=== PATIENT | female | born 1945 | race Caucasian/White ===

== ENCOUNTER → 2016-10-26 | Outpatient (CLI) | payer MEDICARE, OTHER ==
--- NOTE | 2016-10-26 11:10 | RADIOLOGY REPORT (SQ) ---
EXAM DESCRIPTION: MRI LUMBAR SPINE WITHOUT COMPLETED DATE/TIME: 10/26/2016 9:28 am REASON FOR STUDY: LOW BACK PAIN M54.5 LOW BACK PAIN COMPARISON: None. TECHNIQUE: Sagittal and Axial imaging includes T1, T2, STIR and gradient echo sequences. Coronal T2/ HASTE imaging. LIMITATIONS: None. FINDINGS: VISUALIZED UPPER ABDOMEN: Limited evaluation. On the coronal images there is a high inten sity lesion in the liver, not fully visualized. SEGMENTATION: No transitional anatomy. The lowest well-developed disc space is labeled L5-S1. ALIGNMENT: 5 mm anterolisthesis of L3 on L4. VERTEBRAE: Intact. BONE MARROW: No marrow replacement. Reactive endplate signal at L3-L4. DISC SIGNAL: Decreased height and signal. POSTERIOR ELEMENTS: Generally intact. No pars defect evident. HARDWARE: None in the spine. CORD AND CONUS: Normal in size and signal intensity. Conus at the appropriate level. SOFT TISSUES: No aortic aneurysm seen. No bulky retroperitoneal adenopathy or mass. No paraspinal mas s or fluid. L1-L2: No significant spinal stenosis or exit foraminal stenosis. L2-L3: Mild diffuse posterior annular bulge. Moderate facet arthropathy. No significant spinal sten osis. Mild exit foraminal stenosis. L3-L4: Mild diffuse posterior annular bulge. Marked facet arthropathy. Severe spinal stenosis. Yovanny ateral exit foraminal stenosis, worse on the right. L4-L5: Mild diffuse posterior bulge. Mild facet arthropathy. Mild spinal stenosis and exit foramina l stenosis. L5-S1: Mild diffuse posterior bulge. Mild facet arthropathy. Mild spinal stenosis. No significant exit foraminal stenosis. LOWER THORACIC: Incompletely imaged. No stenosis seen. SACRUM: Visualized upper sacrum intact. OTHER: No other significant findings. IMPRESSION: 1. MULTILEVEL DEGENERATIVE CHANGES. THE PROMINENT FINDING IS ANTEROLISTHESIS AT L3-L4 WITH FACET ART HROPATHY RESULTING IN SEVERE SPINAL STENOSIS. OTHER DEGENERATIVE CHANGES DETAILED ABOVE. 2. LESION IN THE LIVER, NOT FULLY EVALUATED. THIS COULD BE A CYST OR HEMANGIOMA. IF THE PATIENT HAS NOT HAD ANY PRIOR ABDOMINAL IMAGING, THEN WOULD CONSIDER CT OF THE LIVER WITHOUT AND WITH CONTRAST. TECHNICAL DOCUMENTATION: JOB ID: [id number]- All Rights Reserved
== END ==
LOC: RAD 08:26
PROVIDERS: ATTEND Physician Assistant
DX: M54.5 Low back pain (principal); M47.896 Other spondylosis, lumbar region
CPT/HCPCS: 72148

== ENCOUNTER → 2016-10-28 | Outpatient (CLI) | payer MEDICARE, OTHER ==
[2016-10-28 09:16] LABS: HEMATOCRIT 41.4 % (36.0-47.0); HEMOGLOBIN 13.8 g/dL (12.0-15.5); MEAN CORPUSCULAR HEMOGLOBIN 30.1 pg (27.0-33.4); MEAN CORPUSCULAR HGB CONC 33.4 g/dL (32.0-36.0); MEAN CORPUSCULAR VOLUME 90 fl (80-97); RED BLOOD COUNT 4.58 10^6/uL (3.72-5.28); RED CELL DISTRIBUTION WIDTH 13.3 % (11.5-14.0); WHITE BLOOD COUNT 6.3 10^3/uL (4.0-10.5)
[2016-10-28 09:32] LABS: ALANINE AMINOTRANSFERASE 31 U/L (9-52); ALBUMIN 3.8 g/dL (3.5-5.0); ALKALINE PHOSPHATASE 82 U/L (38-126); ANION GAP 14 (5-19); ASPARTATE AMINO TRANSFERASE 16 U/L (14-36); BILIRUBIN,DIRECT 0.3 mg/dL (0.0-0.4); BILIRUBIN,TOTAL 0.9 mg/dL (0.2-1.3); BLOOD UREA NITROGEN 15 mg/dL (7-20); CALCIUM 9.6 mg/dL (8.4-10.2); CARBON DIOXIDE 26 mmol/L (22-30); CHLORIDE 103 mmol/L (98-107); CREATININE RESULT 0.67 mg/dL (0.52-1.25); GLUCOSE 105 mg/dL (75-110); TOTAL PROTEIN 5.8 g/dL (6.3-8.2)
[2016-10-28 09:43] LABS: BASOPHILS % (MANUAL) 0 % (0-2); EOSINOPHILS % (MANUAL) 2 % (0-6); LYMPHOCYTES % (MANUAL) 24 % (13-45); TOTAL CELLS COUNTED 100
[2016-10-28 09:44] LABS: RBC MORPHOLOGY COMMENT NORMO-CYTIC/CHROMIC; TOXIC GRANULATION SLIGHT
== END ==
LOC: OD 08:21
PROVIDERS: ATTEND Physician Assistant
DX: M54.5 Low back pain (principal); M54.16 Radiculopathy, lumbar region; R16.0 Hepatomegaly, not elsewhere classified
CPT/HCPCS: 36415; 80053; 85025

== ENCOUNTER → 2016-11-02 | Outpatient (CLI) | payer MEDICARE, OTHER ==
--- NOTE | 2016-11-02 09:54 | RADIOLOGY REPORT (SQ) ---
EXAM DESCRIPTION: CT ABDOMEN COMBO COMPLETED DATE/TIME: 11/02/2016 9:33 am REASON FOR STUDY: LIVER MASS (K76.89) K76.89 OTHER SPECIFIED DISEASES OF LIVER COMPARISON: None. TECHNIQUE: CT scan of the abdomen performed with and without intravenous contrast, and without oral contrast. Contrasted imaging performed using helical scanning technique with dynamic intravenous cont rast injection. Images reviewed with lung, soft tissue, and bone windows. Reconstructed coronal and s agittal MPR images reviewed. Delayed images for evaluation of the urinary system also acquired and ev aluated. All images stored on PACS. All CT scanners at this facility use dose modulation, iterative reconstruction, and/or weight based d osing when appropriate to reduce radiation dose to as low as reasonably achievable (ALARA). [facility]: Dose Right [facility]: CareDose [facility]: Dose Right [facility]: Teradose 4D [facility]: [employer] CONTRAST TYPE AND DOSE: 50mL Isovue 370- low osmolar. RENAL FUNCTION: Creatinine 0.7 RADIATION DOSE: 105.55mGy. LIMITATIONS: None. FINDINGS: NONCONTRASTED IMAGING: No significant renal or bladder calcifications. No other significan t organ calcifications. POSTCONTRASTED IMAGING: LOWER CHEST: No significant findings. No nodules or infiltrates. Spotty coronary artery calcificatio n. LIVER: 1.7 cm hemangioma in the posterior right lobe liver. This correlates with the hyperdense nodu le seen on coronal T2 images through the lumbar spine on 10/26/2016. SPLEEN: Normal size. No focal lesions. PANCREAS: No masses. No significant calcifications. No adjacent inflammation or peripancreatic fluid collections. Pancreatic duct not dilated. GALLBLADDER: Surgically absent ADRENAL GLANDS: No significant masses or asymmetry. RIGHT KIDNEY AND URETER: No solid masses. No significant calcifications. No hydronephrosis or hyd roureter. LEFT KIDNEY AND URETER: No solid masses. No significant calcifications. No hydronephrosis or hydr oureter. AORTA AND VESSELS: No aneurysm. No dissection. Renal arteries, SMA, celiac without stenosis. 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 RETROPERITONEUM: No retroperitoneal adenopathy, hemorrhage or masses. BOWEL AND PERITONEAL CAVITY: No oral contrast. No bowel obstruction. APPENDIX: Normal. ABDOMINAL WALL: No masses. No hernias. BONES: Central canal stenosis at L3-4. OTHER: No other significant finding. IMPRESSION: Benign hemangioma in the liver. Post cholecystectomy. Central canal stenosis at L3-4. TECHNICAL DOCUMENTATION: JOB ID: [id number] Quality ID # [id number]: Final reports with documentation of one or more dose reduction techniques (e.g., Au tomated exposure control, adjustment of the mA and/or kV according to patient size, use of iterative reconstruction technique) 2010 [employer]- All Rights Reserved
== END ==
LOC: RAD 08:49
PROVIDERS: ATTEND Physician Assistant
DX: K76.89 Other specified diseases of liver (principal)
CPT/HCPCS: 74170

== ENCOUNTER → 2016-11-29 | Outpatient (CLI) | payer MEDICARE, OTHER ==
--- NOTE | 2016-11-29 09:59 | RADIOLOGY REPORT (SQ) ---
EXAM DESCRIPTION: LUMBAR SPINE W/FLEX/EXT COMPLETED DATE/TIME: 11/29/2016 9:14 am REASON FOR STUDY: LUMBAR SPINAL STENOSIS M48.06 SPINAL STENOSIS, LUMBAR REGION COMPARISON: Lumbar spine MRI 10/26/2016 NUMBER OF VIEWS: Seven views. TECHNIQUE: AP, lateral, obliques, upright flexion, upright extension, and sacral radiographic images acquired. LIMITATIONS: None. FINDINGS: MINERALIZATION: Normal. SEGMENTATION: Normal. No transitional anatomy. ALIGNMENT: 25% anterolisthesis of L3 over L4, without spondylolysis FLEXION/EXTENSION: No instability. VERTEBRAE: Maintained height. No fracture or worrisome bone lesion. DISCS: Diffuse disc space loss of height with vertebral body endplate sclerosis and mild anterior ost eophyte formation POSTERIOR ELEMENTS: Pedicles and facets are intact, with diffuse facet arthropathy. No pars defect o r posterior arch defects. HARDWARE: None in the spine. PARASPINAL SOFT TISSUES: Normal. PELVIS: Asymmetric left greater than right SI joint sclerosis OTHER: No other significant finding. IMPRESSION: 25% anterolisthesis of L3 over L4, stable between flexion/ extension Multilevel disc space loss of height with vertebral body endplate sclerosis and facet arthropathy NO INSTABILITY ON FLEXION/EXTENSION. TECHNICAL DOCUMENTATION: JOB ID: [id number] [employer]- All Rights Reserved
== END ==
LOC: OD 07:57
PROVIDERS: ATTEND Pain Medicine Pain Medicine
DX: M48.06 Spinal stenosis, lumbar region (principal)
CPT/HCPCS: 72114

== ENCOUNTER 2019-03-21 11:33 | Inpatient (IN) | payer MEDICARE, OTHER ==
--- NOTE | 2019-03-21 12:28 | ER Document Report ---
ED Medical Screen (RME) - General Chief Complaint: Abdominal Pain Stated Complaint: ABDOMINAL PAIN Time Seen by Provider: 03/21/19 12:25 Primary Care Provider: CLOVIS MENDOZA PA [Primary Care Provider] - Follow up as needed Notes: 73-year-old female presented to ED for complaint of abdominal pain since Monday. States he took x-rays gave mag citrate and she threw it all. She states she has not had a bowel movement since then. She states she usually goes twice a day and is having problems. She states she has no appetite at this time is not able to eat. She states she is trying to drink liquids. I have greeted and performed a rapid initial assessment of this patient. A comprehensive ED assessment and evaluation of the patient, analysis of test results and completion of medical decision making process will be conducted by an additional ED providers. TRAVEL OUTSIDE OF THE [place] IN LAST 30 DAYS: No - Related Data Allergies/Adverse Reactions: Penicillins Allergy (Intermediate, Verified 12/03/15 14:34) rash Past Medical History - Social History Chew tobacco use (# tins/day): No Frequency of alcohol use: None Drug Abuse: None - Past Medical History Cardiac Medical History: Reports: Hx Hypertension - medicated Denies: Hx Heart Attack Pulmonary Medical History: Denies: Hx Asthma Neurological Medical History: Denies: Hx Cerebrovascular Accident, Hx Seizures GI Medical History: Denies: Hx Hepatitis, Hx Hiatal Hernia, Hx Ulcer Infectious Medical History: Denies: Hx Hepatitis Past Surgical History: Denies: Hx Hysterectomy, Hx Mastectomy, Hx Open Heart Surgery, Hx Pacemaker Physical Exam - Vital signs Vitals: Temp Pulse Resp BP Pulse Ox 99.1 F 95 18 138/61 H 100 03/21/19 11:51 03/21/19 11:51 03/21/19 11:51 03/21/19 11:51 03/21/19 11:51 Course - Vital Signs Vital signs: Temp Pulse Resp BP Pulse Ox 99.1 F 95 18 138/61 H 100 03/21/19 11:51 03/21/19 11:51 03/21/19 11:51 03/21/19 11:51 03/21/19 11:51 Doctor's Discharge - Discharge Referrals: CLOVIS MENDOZA PA [Primary Care Provider] - Follow up as needed
[2019-03-21] MEDS ORDERED: MINERAL OIL 30 ML UDCUP PR ONE (12:50)
--- NOTE | 2019-03-21 13:04 | RADIOLOGY REPORT (SQ) ---
EXAM DESCRIPTION: ACUTE ABDOMEN SERIES COMPLETED DATE/TIME: 03/21/2019 12:50 pm REASON FOR STUDY: No BM since Monday COMPARISON: None. NUMBER OF VIEWS: Three views. TECHNIQUE: Frontal chest, supine abdomen and upright/decubitus abdomen radiographic images acquired. LIMITATIONS: None. FINDINGS: CHEST: Lungs clear of infiltrates. FREE AIR: None. No abnormal gas collections. BOWEL GAS PATTERN: Nonobstructive pattern. Moderate retained stool. CALCIFICATIONS: No suspicious calcifications. HARDWARE: Hardware in the spine. SOFT TISSUES: No gross mass or suggestion of organomegaly. BONES: No acute fracture. No worrisome bone lesions. OTHER: No other significant finding. IMPRESSION: Mild constipation. TECHNICAL DOCUMENTATION: JOB ID: [id number] [employer]- All Rights Reserved Reading location - IP/workstation name: [email or web address]
[2019-03-21 13:18] LABS: HEMATOCRIT 39.6 % (36.0-47.0); HEMOGLOBIN 13.1 g/dL (12.0-15.5); MEAN CORPUSCULAR HEMOGLOBIN 29.2 pg (27.0-33.4); MEAN CORPUSCULAR HGB CONC 33.1 g/dL (32.0-36.0); MEAN CORPUSCULAR VOLUME 88 fl (80-97); PLATELET COUNT 419 10^3/uL (150-450); RED BLOOD COUNT 4.48 10^6/uL (3.72-5.28); RED CELL DISTRIBUTION WIDTH 14.1 % (11.5-14.0); WHITE BLOOD COUNT 23.5 10^3/uL (4.0-10.5)
[2019-03-21 13:20] LABS: APPEARANCE,URINE SLIGHTLY-CLOUDY; BILIRUBIN,URINE NEGATIVE (NEGATIVE); GLUCOSE, URINE NEGATIVE (NEGATIVE); KETONES,URINE 20 mg/dL (NEGATIVE); LEUKOCYTE ESTERASE,URINE NEGATIVE (NEGATIVE); NITRITE,URINE NEGATIVE (NEGATIVE); PROTEIN,URINE 100 mg/dL (NEGATIVE); URINE SPECIFIC GRAVITY 1.029
[2019-03-21 13:21] LABS: COLOR,URINE YELLOW
[2019-03-21 13:33] LABS: ALBUMIN 3.7 g/dL (3.5-5.0); ALKALINE PHOSPHATASE 133 U/L (38-126); ANION GAP 14 (5-19); ASPARTATE AMINO TRANSFERASE 26 U/L (14-36); BILIRUBIN,DIRECT 0.7 mg/dL (0.0-0.4); BILIRUBIN,TOTAL 1.9 mg/dL (0.2-1.3); BLOOD UREA NITROGEN 16 mg/dL (7-20); CALCIUM 9.3 mg/dL (8.4-10.2); CARBON DIOXIDE 27 mmol/L (22-30); CHLORIDE 94 mmol/L (98-107); GLUCOSE 113 mg/dL (75-110); POTASSIUM 3.7 mmol/L (3.6-5.0); TOTAL PROTEIN 6.9 g/dL (6.3-8.2)
[2019-03-21 13:42] LABS: ABSOLUTE LYMPHOCYTES# (MANUAL) 0.9 10^3/uL (0.5-4.7); ABSOLUTE MONOCYTES # (MANUAL) 1.9 10^3/uL (0.1-1.4); BASOPHILS % (MANUAL) 0 % (0-2); EOSINOPHILS % (MANUAL) 0 % (0-6); LYMPHOCYTES % (MANUAL) 4 % (13-45); MONOCYTES % (MANUAL) 8 % (3-13); SEGMENTED NEUTROPHILS % (MAN) 88 % (42-78); TOTAL CELLS COUNTED 100
[2019-03-21 13:43] LABS: ANISOCYTOSIS SLIGHT; OVALOCYTES SLIGHT; PLATELET COMMENT ADEQUATE; TEAR DROP CELLS SLIGHT
[2019-03-21] MEDS ORDERED: MORPHINE SULFATE 10 MG/ML INJ IV ONE ×2 (15:01→16:32)
[2019-03-21] MEDS ORDERED: ONDANSETRON HCL INJ/PF 4 MG/2 ML SDV IV ONE (15:03)
--- NOTE | 2019-03-21 15:37 | ER Document Report ---
ED General - General Chief Complaint: Abdominal Pain Stated Complaint: ABDOMINAL PAIN Time Seen by Provider: 03/21/19 12:25 Primary Care Provider: CLOVIS MENDOZA PA [NO LOCAL MD] - Follow up as needed TRAVEL OUTSIDE OF THE [place] IN LAST 30 DAYS: No - HPI Notes: Patient is referred from her primary care doctor for acute abdominal pain. She states that is been generalized for 4 to 5 days. She is also not had a bowel movement in approximately 1 week. Some nausea and vomiting when she tried to drink magnesium citrate. The abdominal pain seems to get worse that she has moving around and better with rest. It is a cramping sensation and mild to moderate. No fevers. No problems with urination. - Related Data Allergies/Adverse Reactions: Penicillins Allergy (Intermediate, Verified 12/03/15 14:34) rash Past Medical History - General Information source: Patient - Social History Smoking Status: Never Smoker Chew tobacco use (# tins/day): No Frequency of alcohol use: None Drug Abuse: None Family History: Reviewed & Not Pertinent Patient has suicidal ideation: No Patient has homicidal ideation: No - Past Medical History Cardiac Medical History: Reports: Hx Hypertension - medicated Denies: Hx Heart Attack Pulmonary Medical History: Denies: Hx Asthma Neurological Medical History: Denies: Hx Cerebrovascular Accident, Hx Seizures GI Medical History: Denies: Hx Hepatitis, Hx Hiatal Hernia, Hx Ulcer Infectious Medical History: Denies: Hx Hepatitis Past Surgical History: Denies: Hx Hysterectomy, Hx Mastectomy, Hx Open Heart Surgery, Hx Pacemaker Review of Systems - Review of Systems Constitutional: denies: Chills, Fever Cardiovascular: denies: Chest pain, Palpitations Respiratory: denies: Cough, Short of breath Gastrointestinal: Abdominal pain, Vomiting. denies: Diarrhea Genitourinary: denies: Dysuria, Frequency -: Yes All other systems reviewed and negative Physical Exam - Vital signs Vitals: Temp Pulse Resp BP Pulse Ox 99.1 F 95 18 138/61 H 100 03/21/19 11:51 03/21/19 11:51 03/21/19 11:51 03/21/19 11:51 03/21/19 11:51 Interpretation: Normal - General General appearance: Appears well, Alert - HEENT Head: Normocephalic, Atraumatic Eyes: Normal Pupils: PERRL - Respiratory Respiratory status: No respiratory distress Chest status: Nontender Breath sounds: Normal Chest palpation: Normal - Cardiovascular Rhythm: Regular Heart sounds: Normal auscultation Murmur: No - Abdominal Inspection: Normal Distension: No distension Bowel sounds: Normal Tenderness: Tender - Patient has mild diffuse tenderness to palpation. No rebound or guarding. Organomegaly: No organomegaly - Back Back: Normal, Nontender - Extremities General upper extremity: Normal inspection, Nontender, Normal color, Normal ROM, Normal temperature General lower extremity: Normal inspection, Nontender, Normal color, Normal ROM, Normal temperature, Normal weight bearing. No: Juan Pablo's sign - Neurological Neuro grossly intact: Yes Cognition: Normal Orientation: AAOx4 Yasir Coma Scale Eye Opening: Spontaneous [place] Coma Scale Verbal: Oriented Yasir Coma Scale Motor: Obeys Commands Yasir Coma Scale Total: 15 Speech: Normal Motor strength normal: LUE, RUE, LLE, RLE Sensory: Normal - Psychological Associated symptoms: Normal affect, Normal mood - Skin Skin Temperature: Warm Skin Moisture: Dry Skin Color: Normal Course - Re-evaluation Re-evalutation: 03/21/19 15:58 Patient presents with complaints of abdominal pain and constipation. X-ray showed constipation. However white count came back at 23,000. Patient was then given a CAT scan. CAT scan shows a large intra-abdominal abscess. It was recommended that the CAT scan be repeated with oral contrast to further delineate the findings. Patient is currently pending at this scan. She will be turned over to Dr. Magallon who will follow up on the scan and contact surgery. - Vital Signs Vital signs: Temp Pulse Resp BP Pulse Ox 99.1 F 95 18 138/61 H 100 03/21/19 11:51 03/21/19 11:51 03/21/19 11:51 03/21/19 11:51 03/21/19 11:51 - Laboratory Result Diagrams: 03/21/19 12:55 03/21/19 12:55 Laboratory results interpreted by me: 03/21/19 03/21/19 03/21/19 12:55 12:55 12:55 WBC 23.5 H RDW 14.1 H Seg Neuts % (Manual) 88 H Lymphocytes % (Manual) 4 L Abs Neuts (Manual) 20.7 H Abs Monocytes (Manual) 1.9 H Sodium 135.2 L Chloride 94 L Glucose 113 H Total Bilirubin 1.9 H Direct Bilirubin 0.7 H Alkaline Phosphatase 133 H Urine Protein 100 H Urine Ketones 20 H Urine Blood SMALL H Urine Urobilinogen 2.0 H - Diagnostic Test Radiology reviewed: Image reviewed, Reports reviewed Discharge - Discharge Clinical Impression: Intra-abdominal abscess Condition: Serious Disposition: ADMITTED INPATIENT Admitting Provider: Surgicalist - [facility] [place] Unit Admitted: Surgical Floor Referrals: CLOVIS MENDOZA PA [NO LOCAL MD] - Follow up as needed
--- NOTE | 2019-03-21 15:39 | RADIOLOGY REPORT (SQ) ---
EXAM DESCRIPTION: CT ABD/PELVIS WITH IV ONLY COMPLETED DATE/TIME: 03/21/2019 3:24 pm REASON FOR STUDY: pain/elevated wbc COMPARISON: 11/02/2016 TECHNIQUE: CT scan of the abdomen and pelvis performed using helical scanning technique with dynamic intravenous contrast injection. No oral contrast. Images reviewed with lung, soft tissue, and bone windows. Reconstructed coronal and sagittal MPR images reviewed. Delayed images for evaluation of the urinary system also acquired. All images stored on PACS. All CT scanners at this facility use dose modulation, iterative reconstruction, and/or weight based d osing when appropriate to reduce radiation dose to as low as reasonably achievable (ALARA). [facility]: Dose Right [facility]: CareDose [facility]: Dose Right [facility]: Teradose 4D [facility]: [employer] CONTRAST TYPE AND DOSE: contrast/concentration: Isovue 350.00 mg/ml; Total Contrast Delivered: 87.0 ml; Total Saline Delivered: 48.8 ml RENAL FUNCTION: GFR > 60. RADIATION DOSE: CT Rad equipment meets quality standard of care and radiation dose reduction techniq ues were employed. CTDIvol: NaN - NaN mGy. DLP: 0 mGy-cm.. LIMITATIONS: None. FINDINGS: LOWER CHEST: No significant findings. No nodules or infiltrates. LIVER: Normal size. No masses. Redemonstrated hemangioma of the right lobe. No dilated ducts. SPLEEN: Normal size. No focal lesions. PANCREAS: No masses. No significant calcifications. No adjacent inflammation or peripancreatic fluid collections. Pancreatic duct not dilated. GALLBLADDER: Surgically absent. ADRENAL GLANDS: No significant masses or asymmetry. RIGHT KIDNEY AND URETER: No solid masses. No significant calcifications. No hydronephrosis or hyd roureter. LEFT KIDNEY AND URETER: No solid masses. No significant calcifications. No hydronephrosis or hydr oureter. AORTA AND VESSELS: No aneurysm. No dissection. Renal arteries, SMA, celiac without stenosis. RETROPERITONEUM: No retroperitoneal adenopathy, hemorrhage or masses. BOWEL AND PERITONEAL CAVITY: Severe sigmoid diverticulosis. . No free fluid or peritoneal masses. APPENDIX: Not clearly visualized; please see below discussion. PELVIS: There is a multiloculated air and fluid collection in the right lower abdomen and pelvis jh uring approximately 7.9 x 6.9 x 5.1 cm (series 3, image 61, series 601, image 37). This is favored t o represent an abscess, of uncertain origin although appendiceal abscess is favored. There is a joslyn re adjacent sigmoid diverticulosis and fat stranding; diverticular abscess is a differential consider ation. No free fluid. Normal bladder. ABDOMINAL WALL: No masses. No hernias. BONES: No significant or acute findings. OTHER: No other significant finding. IMPRESSION: There is a multiloculated air and fluid collection in the right lower abdomen and pelvis measuring approximately 7.9 x 6.9 x 5.1 cm (series 3, image 61, series 601, image 37). This is favo red to represent an abscess, of uncertain origin although appendiceal abscess is favored. There is a severe adjacent sigmoid diverticulosis and fat stranding; diverticular abscess is a differential con sideration. Less favored considerations include right ovarian mass. It is unclear whether small bow el may be included within this multiloculated collection or communicate with this collection; conside r repeat CT examination with the administration of oral contrast to exclude small bowel loops or fist anthony. TECHNICAL DOCUMENTATION: JOB ID: [id number] Quality ID # [id number]: Final reports with documentation of one or more dose reduction techniques (e.g., Au tomated exposure control, adjustment of the mA and/or kV according to patient size, use of iterative reconstruction technique) 2010 [employer]- All Rights Reserved Reading location - IP/workstation name: [email or web address]
[2019-03-21] MEDS ORDERED: NORMAL SALINE 1000 ML 1,000 ML IV ONE (16:07)
[2019-03-21] MEDS ORDERED: LEVOFLOXACIN 750 MG/D5W RTU 750 MG/150 ML RTUPB IV SCH (16:30)
[2019-03-21] MEDS ORDERED: METRONIDAZOLE 500 MG/NS RTU 500 MG/100 ML RTUPB IV SCH (18:00)
[2019-03-21] MEDS ORDERED: ONDANSETRON 4 MG TAB.RAPDIS PO PRN (18:12)
[2019-03-21] MEDS ORDERED: ACETAMINOPHEN 650 MG SUPP.RECT PR PRN (18:12)
[2019-03-21] MEDS ORDERED: MAGNESIUM HYDROXIDE SUSP 30 ML UDCUP PO PRN (18:12)
[2019-03-21] MEDS ORDERED: ONDANSETRON HCL INJ/PF 4 MG/2 ML SDV IV PRN (18:12)
[2019-03-21] MEDS ORDERED: ACETAMINOPHEN 325 MG TABLET PO PRN (18:12)
[2019-03-21] MEDS ORDERED: DEXTROSE 40% GEL 15 GM TUBE PO PRN ×2 (18:24)
[2019-03-21] MEDS ORDERED: DEXTROSE 50%-WATER 25 GM/50 ML DISP.SYRIN IV PRN ×2 (18:24)
[2019-03-21] MEDS ORDERED: GLUCAGON,HUMAN RECOMB 1 MG INJ IM PRN (18:24)
--- NOTE | 2019-03-21 18:24 | PDOC CONSULTATION ---
Consultation Consult Date: 03/21/19 Provider Consulted: CAMILA PERKINS Consult reason:: Intra-abdominal abscess History of Present Illness Admission Date/PCP: GOMEZ HALE PA-C History of Present Illness: MAGDALENE SIMMS is a 73 year old female Presents to the emergency department via ground rescue complaining a week history of abdominal pain, crampy, bloating sensation, inability to have a bowel movement, constipation. She is seen in the emergency department she is found to have abdominal tenderness. White blood cell count [place] 23,000. Patient underwent CT scan of the abdomen and pelvis without oral contrast which showed intra-abdominal abscess to the right of midline in the pelvis, colonic, associated with pericolonic stranding and sigmoid diverticulitis. Patient still has her appendix. She underwent colonoscopy by Dr. Fernandez 6 years ago and was found to have sigmoid diverticulosis and sigmoid colon polyp. Hemodynamically stable without evidence of sepsis. Surgery was consulted. Patient was advised admission to the hospital service with surgicalist team consulting. Past Medical History Past Medical History: History of hypertension, diverticulosis. Cardiac Medical History: Reports: Hypertension - medicated Denies: Myocardial Infarction Pulmonary Medical History: Denies: Asthma Neurological Medical History: Denies: Seizures GI Medical History: Denies: Hepatitis, Hiatal Hernia Hematology: Denies: Anemia, Sickle Cell Disease Past Surgical History Past Surgical History: Laparoscopic cholecystectomy Past Surgical History: Denies: Amputation, Hysterectomy, Mastectomy, Pacemaker Social History Information Source: Patient Smoking Status: Never Smoker Electronic Cigarette use?: No Frequency of Alcohol Use: Rare Hx Recreational Drug Use: No Hx Prescription Drug Abuse: No Family History Family History: None, Reviewed & Not Pertinent Parental Family History Reviewed: No Children Family History Reviewed: No Sibling(s) Family History Reviewed.: No Medication/Allergy Home Medications: Atorvastatin Calcium [Lipitor 10 mg Tablet] 10 mg PO DAILY 04/08/13 Hydrochlorothiazide 25 mg PO QAM 04/08/13 Nitrofurantoin Macrocrystal [Nitrofurantoin] 50 mg PO DAILY 04/08/13 Rabeprazole Sodium [Aciphex] 20 mg PO DAILY 04/08/13 Metformin HCl 500 mg PO QAM 12/03/15 Allergies/Adverse Reactions: Penicillins Allergy (Intermediate, Verified 12/03/15 14:34) rash Review of Systems Constitutional: PRESENT: as per HPI Eyes: ABSENT: visual disturbances Ears: ABSENT: hearing changes Cardiovascular: ABSENT: chest pain, dyspnea on exertion, edema, orthropnea, palpitations Respiratory: ABSENT: cough, hemoptysis Gastrointestinal: PRESENT: as per HPI, abdominal pain, bloating, constipation Genitourinary: ABSENT: dysuria, hematuria Musculoskeletal: ABSENT: joint swelling Integumentary: ABSENT: rash, wounds Neurological: ABSENT: abnormal gait, abnormal speech, confusion, dizziness, focal weakness, syncope Psychiatric: ABSENT: anxiety, depression, homidical ideation, suicidal ideation Physical Exam Vital Signs: Temp Pulse Resp BP Pulse Ox 99.1 F 95 18 138/61 H 100 03/21/19 11:51 03/21/19 11:51 03/21/19 11:51 03/21/19 11:51 03/21/19 11:51 Intake & Output 03/20/19 03/21/19 03/22/19 06:59 06:59 06:59 Intake Total 1000 Balance 1000 Weight 76.2 kg General appearance: PRESENT: no acute distress Head exam: PRESENT: normocephalic Eye exam: PRESENT: EOMI Mouth exam: PRESENT: dry mucosa Neck exam: PRESENT: full ROM Respiratory exam: PRESENT: clear to auscultation telly Cardiovascular exam: PRESENT: RRR Pulses: PRESENT: normal carotid pulses, normal radial pulses, normal femoral pulses, normal dorsalis pedis pul, +1 pedal pulses bilateral GI/Abdominal exam: PRESENT: other - Slight abdominal distention, guarding, with less tenderness to the right of midline in the pelvic region. Hypoactive bowel sounds. Scars consistent with previous surgery. Rectal exam: PRESENT: deferred Extremities exam: PRESENT: full ROM Musculoskeletal exam: PRESENT: full ROM Neurological exam: PRESENT: awake, oriented to person, oriented to time, oriented to situation Psychiatric exam: PRESENT: appropriate affect Skin exam: PRESENT: dry Results Laboratory Results: 03/21/19 12:55 03/21/19 12:55 03/21/19 03/21/19 03/21/19 12:55 12:55 12:55 WBC 23.5 H RBC 4.48 Hgb 13.1 Hct 39.6 MCV 88 MCH 29.2 MCHC 33.1 RDW 14.1 H Plt Count 419 Seg Neutrophils % Not Reportable Sodium 135.2 L Potassium 3.7 Chloride 94 L Carbon Dioxide 27 Anion Gap 14 BUN 16 Creatinine 0.72 Est GFR ( Amer) > 60 Glucose 113 H Calcium 9.3 Total Bilirubin 1.9 H AST 26 Alkaline Phosphatase 133 H Total Protein 6.9 Albumin 3.7 Lipase 34.2 Urine Color YELLOW Urine Appearance SLIGHTLY-CLOUDY Urine pH 5.0 Ur Specific [place] 1.029 Urine Protein 100 H Urine Glucose (UA) NEGATIVE Urine Ketones 20 H Urine Blood SMALL H Urine Nitrite NEGATIVE Ur Leukocyte Esterase NEGATIVE Urine WBC (Auto) 1 Urine RBC (Auto) 7 Impressions: Acute Abdomen Series 03/21/19 12:29 IMPRESSION: Mild constipation. Abdomen/Pelvis CT 03/21/19 14:32 IMPRESSION: There is a multiloculated air and fluid collection in the right lower abdomen and pelvis measuring approximately 7.9 x 6.9 x 5.1 cm (series 3, image 61, series 601, image 37). This is favored to represent an abscess, of uncertain origin although appendiceal abscess is favored. There is a severe adjacent sigmoid diverticulosis and fat stranding; diverticular abscess is a differential consideration. Less favored considerations include right ovarian mass. It is unclear whether small bowel may be included within this multiloculated collection or communicate with this collection; consider repeat CT examination with the administration of oral contrast to exclude small bowel loops or fistula. Assessment & Plan - Diagnosis (1) Intra-abdominal abscess Is this a current diagnosis for this admission?: Yes Plan: Impression: Subacute presentation of low abdominal-pelvic abscess, pericolonic, associated with deangelo-rectosigmoid stranding and diverticulitis, consistent with complicated diverticulitis, Hinchey classification1-2; no evidence of peritonitis widespread intra-abdominal sepsis. Other sources of intrapelvic sepsis such as ovarian, cecal, appendiceal also possible but less likely Recommendations: 1. Reviewed the pathoanatomy as described above with patient. I have recommended admission, IV fluids, intravenous antibiotics, n.p.o. 2. We will consult interventional radiology in a.m. to consider percutaneous versus trans-rectal pelvic drain placement. 3. I explained to the patient that if we cannot bridge her over this acute flareup with IV antibiotics and percutaneous drainage, and she urinates, then emergent surgery may be required. I explained to her that on an unprepped bowel, colonic resection with colostomy may be required. She expresses understanding and agrees to proceed. (2) Diverticulitis Is this a current diagnosis for this admission?: Yes (3) Obesity Qualifiers: Obesity type: unspecified obesity type Body mass index: BMI 32.0-32.9 Is this a current diagnosis for this admission?: Yes (4) Hypertension Qualifiers: Hypertension type: essential hypertension Qualified Code(s): I10 - Essential (primary) hypertension Is this a current diagnosis for this admission?: Yes - Time Time Spent: 50 to 70 Minutes Smoking Cessation Education: over 10 minutes Medications reviewed and adjusted accordingly: Yes Anticipated discharge: Home - Inpatient Certification Based on my medical assessment, after consideration of the patient's comorbidit ies, presenting symptoms, or acuity I expect that the services needed warrant INPATIENT care.: Yes I certify that my determination is in accordance with my understanding of [facility]'s requirements for reasonable and necessary INPATIENT services [42 CFR 412.3e].: Yes Medical Necessity: Need For IV Fluids, Need for Pain Control, Need for IV Antibiotics, Need for Surgery
--- NOTE | 2019-03-21 18:41 | PDOC H&P ---
History of Present Illness Admission Date/PCP: GOMEZ HALE PA-C 03/21/2019 History of Present Illness: MAGDALENE SIMMS is a 73 year old female Past Medical History Cardiac Medical History: Reports: Hypertension - medicated Denies: Myocardial Infarction Pulmonary Medical History: Denies: Asthma Neurological Medical History: Denies: Seizures GI Medical History: Reports: Other - Gallbladder disease Denies: Hepatitis, Hiatal Hernia Musculoskeltal Medical History: Reports: Other - Back pain with back surgery Hematology: Denies: Anemia, Sickle Cell Disease Past Surgical History Past Surgical History: Reports: Cholecystectomy - Lumbar disc surgery, Other Denies: Amputation, Hysterectomy, Mastectomy, Pacemaker Social History Smoking Status: Never Smoker Electronic Cigarette use?: No Frequency of Alcohol Use: Rare Hx Recreational Drug Use: No Hx Prescription Drug Abuse: No - Advance Directive Resuscitation Status: Full Code Family History Family History: None, Reviewed & Not Pertinent Parental Family History Reviewed: No Children Family History Reviewed: No Sibling(s) Family History Reviewed.: No Medication/Allergy Home Medications: Atorvastatin Calcium [Lipitor 10 mg Tablet] 10 mg PO DAILY 04/08/13 Hydrochlorothiazide 25 mg PO QAM 04/08/13 Nitrofurantoin Macrocrystal [Nitrofurantoin] 50 mg PO DAILY 04/08/13 Rabeprazole Sodium [Aciphex] 20 mg PO DAILY 04/08/13 Metformin HCl 500 mg PO QAM 12/03/15 Allergies/Adverse Reactions: Penicillins Allergy (Intermediate, Verified 12/03/15 14:34) rash Review of Systems Constitutional: ABSENT: chills, fever(s), headache(s), weight gain, weight loss Cardiovascular: ABSENT: chest pain, dyspnea on exertion, edema, orthropnea, palpitations Respiratory: ABSENT: cough, hemoptysis Gastrointestinal: PRESENT: constipation, vomiting Neurological: ABSENT: abnormal gait, abnormal speech, confusion, dizziness, focal weakness, syncope Psychiatric: ABSENT: anxiety, depression, homidical ideation, suicidal ideation Physical Exam Vital Signs: Temp Pulse Resp BP Pulse Ox 99.1 F 95 18 138/61 H 100 03/21/19 11:51 03/21/19 11:51 03/21/19 11:51 03/21/19 11:51 03/21/19 11:51 Intake & Output 03/20/19 03/21/19 03/22/19 06:59 06:59 06:59 Intake Total 1000 Balance 1000 Weight 76.2 kg General appearance: PRESENT: no acute distress Respiratory exam: PRESENT: clear to auscultation telly. ABSENT: rales, rhonchi, wheezes Cardiovascular exam: PRESENT: RRR. ABSENT: diastolic murmur, rubs, systolic murmur GI/Abdominal exam: PRESENT: diminished bowel sounds, hypoactive bowel sounds, soft, tenderness Neurological exam: PRESENT: alert, awake, oriented to person, oriented to place, oriented to time, oriented to situation, CN II-XII grossly intact. ABSENT: motor sensory deficit Psychiatric exam: PRESENT: appropriate affect, normal mood. ABSENT: homicidal ideation, suicidal ideation Results Laboratory Results: 03/21/19 12:55 03/21/19 12:55 03/21/19 03/21/19 03/21/19 12:55 12:55 12:55 WBC 23.5 H RBC 4.48 Hgb 13.1 Hct 39.6 MCV 88 MCH 29.2 MCHC 33.1 RDW 14.1 H Plt Count 419 Seg Neutrophils % Not Reportable Sodium 135.2 L Potassium 3.7 Chloride 94 L Carbon Dioxide 27 Anion Gap 14 BUN 16 Creatinine 0.72 Est GFR ( Amer) > 60 Glucose 113 H Calcium 9.3 Total Bilirubin 1.9 H AST 26 Alkaline Phosphatase 133 H Total Protein 6.9 Albumin 3.7 Lipase 34.2 Urine Color YELLOW Urine Appearance SLIGHTLY-CLOUDY Urine pH 5.0 Ur Specific [place] 1.029 Urine Protein 100 H Urine Glucose (UA) NEGATIVE Urine Ketones 20 H Urine Blood SMALL H Urine Nitrite NEGATIVE Ur Leukocyte Esterase NEGATIVE Urine WBC (Auto) 1 Urine RBC (Auto) 7 Impressions: Acute Abdomen Series 03/21/19 12:29 IMPRESSION: Mild constipation. Abdomen/Pelvis CT 03/21/19 14:32 IMPRESSION: There is a multiloculated air and fluid collection in the right lower abdomen and pelvis measuring approximately 7.9 x 6.9 x 5.1 cm (series 3, image 61, series 601, image 37). This is favored to represent an abscess, of uncertain origin although appendiceal abscess is favored. There is a severe adjacent sigmoid diverticulosis and fat stranding; diverticular abscess is a differential consideration. Less favored considerations include right ovarian mass. It is unclear whether small bowel may be included within this multiloculated collection or communicate with this collection; consider repeat CT examination with the administration of oral contrast to exclude small bowel loops or fistula. Assessment and Plan - Diagnosis (2) Diverticulitis Is this a current diagnosis for this admission?: Yes (3) Hypertension Qualifiers: Hypertension type: essential hypertension Qualified Code(s): I10 - Essential (primary) hypertension Is this a current diagnosis for this admission?: Yes (4) Intra-abdominal abscess Is this a current diagnosis for this admission?: Yes (5) Obesity Qualifiers: Obesity type: unspecified obesity type Body mass index: BMI 32.0-32.9 Is this a current diagnosis for this admission?: Yes - Plan Summary Summary: 03/21/2019 Patient has been seen in consultation and examined by general surgery, Dr. Roberto, who feels like the patient should be kept n.p.o., IV fluids, IV antibiotics, and reevaluated in the morning.. He feels like it would be best to possibly drain the abscess with CT guided drainage, and reevaluate the patient afterwards. Patient was informed however that plans could change based on her clinical condition. She has a significant drug allergy to the penicillins will be placed on IV Flagyl and IV ciprofloxacin. Currently patient is up and ambulatory to the bathroom and in no acute distress. Patient had all of her questions answered satisfied with the plan. - Time Time Spent with patient: 35 or more minutes
[2019-03-21] MEDS ORDERED: PROMETHAZINE HCL INJ 25 MG/1 ML VIAL IV PRN (18:43)
[2019-03-21] MEDS ORDERED: HYDRALAZINE HCL INJ/PF 20 MG/1 ML SDV IV PRN (18:46)
[2019-03-21 19:09] LABS: INTERNATIONAL RATION (INR) 1.19; PROTHROMBIN TIME 15.2 SEC (11.4-15.4)
--- NOTE | 2019-03-21 19:50 | RADIOLOGY REPORT (SQ) ---
EXAM DESCRIPTION: CT ABD/PELVIS ORAL ONLY COMPLETED DATE/TIME: 03/21/2019 7:22 pm REASON FOR STUDY: abscess on previous scan needs repeat with oral COMPARISON: 03/21/2019 TECHNIQUE: CT scan of the abdomen and pelvis performed without intravenous contrast. Oral contrast was administered. Images reviewed with lung, soft tissue, and bone windows. Reconstructed coronal an d sagittal MPR images reviewed. All images stored on PACS. All CT scanners at this facility use dose modulation, iterative reconstruction, and/or weight based d osing when appropriate to reduce radiation dose to as low as reasonably achievable (ALARA). [facility]: Dose Right [facility]: CareDose [facility]: Dose Right [facility]: Teradose 4D [facility]: [employer] RADIATION DOSE: CT Rad equipment meets quality standard of care and radiation dose reduction techniq ues were employed. CTDIvol: 11.8 mGy. DLP: 603 mGy-cm.mGy. LIMITATIONS: None. FINDINGS: LOWER CHEST: No significant findings. No nodules or infiltrates. NON-CONTRASTED LIVER, SPLEEN, ADRENALS: Evaluation limited by lack of IV contrast. No identified sign ificant masses. PANCREAS: No masses. No peripancreatic inflammatory changes. GALLBLADDER: No identified stones by CT criteria. No inflammatory changes to suggest cholecystitis. RIGHT KIDNEY AND URETER: No suspicious masses. Assessment limited by lack of IV contrast. No signif icant calcifications. No hydronephrosis or hydroureter. LEFT KIDNEY AND URETER: No suspicious masses. Assessment limited by lack of IV contrast. No signifi cant calcifications. No hydronephrosis or hydroureter. AORTA AND RETROPERITONEUM: No aneurysm. No retroperitoneal masses or adenopathy. BOWEL AND PERITONEAL CAVITY: Once again inflammatory mass containing an air-fluid level is seen in th e right side of the pelvis. APPENDIX: Not identified. PELVIS, BLADDER, AND ABDOMINAL WALL:See above. No free fluid in the pelvis. Extensive diverticulosi s in the sigmoid colon. BONES: No significant findings. OTHER: No other significant finding. IMPRESSION: Right side pelvic abscess: Diverticulitis versus appendiceal abscess. COMMENT: Quality ID # [id number]: Final reports with documentation of one or more dose reduction techniques (e.g., Automated exposure control, adjustment of the mA and/or kV according to patient size, use of iterative reconstruction technique) TECHNICAL DOCUMENTATION: JOB ID: [id number] 6015[employer]- All Rights Reserved Reading location - IP/workstation name: [email or web address]
[2019-03-21] MEDS: MORPHINE SULFATE 10 MG/ML INJ IV PRN (20:03)
[2019-03-21] MEDS: NORMAL SALINE 1000 ML 1,000 ML IV PRN (20:04)
[2019-03-21] MEDS: INSULIN LISPRO 100 UNIT/ML 3 ML VIAL SUBCUT SCH (22:49)
[2019-03-21] MEDS: FAMOTIDINE INJ/PF 20 MG/2 ML SDV IV SCH (23:27)
[2019-03-22] MEDS: METRONIDAZOLE 500 MG/NS RTU 250 MG in CONTAINER,EMPTY 1 EACH IV SCH ×3 (01:32→17:12)
[2019-03-22] MEDS: MORPHINE SULFATE 10 MG/ML INJ IV PRN ×5 (01:49→21:07)
[2019-03-22 04:42] LABS: HEMATOCRIT 34.1 % (36.0-47.0); HEMOGLOBIN 11.4 g/dL (12.0-15.5); MEAN CORPUSCULAR HEMOGLOBIN 29.8 pg (27.0-33.4); MEAN CORPUSCULAR HGB CONC 33.6 g/dL (32.0-36.0); MEAN CORPUSCULAR VOLUME 89 fl (80-97); PLATELET COUNT 338 10^3/uL (150-450); RED BLOOD COUNT 3.84 10^6/uL (3.72-5.28); RED CELL DISTRIBUTION WIDTH 14.5 % (11.5-14.0); WHITE BLOOD COUNT 21.2 10^3/uL (4.0-10.5)
[2019-03-22 04:54] LABS: ANION GAP 10 (5-19); BLOOD UREA NITROGEN 11 mg/dL (7-20); CALCIUM 8.2 mg/dL (8.4-10.2); CARBON DIOXIDE 24 mmol/L (22-30); CHLORIDE 101 mmol/L (98-107); GLUCOSE 82 mg/dL (75-110); POTASSIUM 3.4 mmol/L (3.6-5.0)
[2019-03-22 05:19] LABS: ABSOLUTE LYMPHOCYTES# (MANUAL) 0.6 10^3/uL (0.5-4.7); ABSOLUTE MONOCYTES # (MANUAL) 1.1 10^3/uL (0.1-1.4); ANISOCYTOSIS SLIGHT; BAND NEUTROPHILS % (MANUAL) 7 % (3-5); BASOPHILS % (MANUAL) 0 % (0-2); EOSINOPHILS % (MANUAL) 0 % (0-6); LYMPHOCYTES % (MANUAL) 3 % (13-45); MONOCYTES % (MANUAL) 5 % (3-13); PLATELET COMMENT ADEQUATE; SEGMENTED NEUTROPHILS % (MAN) 85 % (42-78); TOTAL CELLS COUNTED 100
[2019-03-22] MEDS: CIPROFLOXACIN 400 MG/D5W RTU 400 MG/200 ML RTUPB IV SCH ×2 (05:21→18:04)
[2019-03-22] MEDS: NORMAL SALINE 1000 ML 1,000 ML IV PRN (05:23)
[2019-03-22] MEDS: INSULIN LISPRO 100 UNIT/ML 3 ML VIAL SUBCUT SCH ×4 (08:02→21:01)
[2019-03-22] MEDS: FAMOTIDINE INJ/PF 20 MG/2 ML SDV IV SCH ×2 (11:21→21:02)
--- NOTE | 2019-03-22 11:27 | PDOC PROGRESS REPORT ---
Subjective Progress Note for:: 03/15/19 Subjective:: Left lower quadrant pains not any worse than yesterday. Passing small amount of flatus. No nausea or vomiting Reason For Visit: ABDOMINAL PAIN, LEUKOCYTOSIS,HYPERTENSION,LUMBAR Physical Exam Vital Signs: Temp Pulse Resp BP Pulse Ox 98.4 F 83 16 119/68 96 03/22/19 07:39 03/22/19 07:39 03/22/19 07:39 03/22/19 07:39 03/22/19 07:39 Intake & Output 03/21/19 03/22/19 03/23/19 06:59 06:59 06:59 Intake Total 2132 Balance 2132 Weight 77.4 kg Exam: Abdomen is soft with tenderness in the left lower quadrant. Results Laboratory Results: 03/22/19 03:37 03/22/19 03:37 03/21/19 03/21/19 03/21/19 12:55 12:55 12:55 WBC 23.5 H RBC 4.48 Hgb 13.1 Hct 39.6 MCV 88 MCH 29.2 MCHC 33.1 RDW 14.1 H Plt Count 419 Seg Neutrophils % Not Reportable Sodium 135.2 L Potassium 3.7 Chloride 94 L Carbon Dioxide 27 Anion Gap 14 BUN 16 Creatinine 0.72 Est GFR ( Amer) > 60 Glucose 113 H Calcium 9.3 Magnesium Total Bilirubin 1.9 H AST 26 Alkaline Phosphatase 133 H Total Protein 6.9 Albumin 3.7 Amylase Lipase 34.2 Urine Color YELLOW Urine Appearance SLIGHTLY-CLOUDY Urine pH 5.0 Ur Specific [place] 1.029 Urine Protein 100 H Urine Glucose (UA) NEGATIVE Urine Ketones 20 H Urine Blood SMALL H Urine Nitrite NEGATIVE Ur Leukocyte Esterase NEGATIVE Urine WBC (Auto) 1 Urine RBC (Auto) 7 03/21/19 03/22/19 03/22/19 12:55 03:37 03:37 WBC 21.2 H RBC 3.84 Hgb 11.4 L Hct 34.1 L MCV 89 MCH 29.8 MCHC 33.6 RDW 14.5 H Plt Count 338 Seg Neutrophils % Not Reportable Sodium 135.3 L Potassium 3.4 L Chloride 101 Carbon Dioxide 24 Anion Gap 10 BUN 11 Creatinine 0.67 Est GFR ( Amer) > 60 Glucose 82 Calcium 8.2 L Magnesium 2.0 Total Bilirubin AST Alkaline Phosphatase Total Protein Albumin Amylase 36 Lipase Urine Color Urine Appearance Urine pH Ur Specific [place] Urine Protein Urine Glucose (UA) Urine Ketones Urine Blood Urine Nitrite Ur Leukocyte Esterase Urine WBC (Auto) Urine RBC (Auto) Impressions: Acute Abdomen Series 03/21/19 12:29 IMPRESSION: Mild constipation. Abdomen/Pelvis CT 03/21/19 15:57 IMPRESSION: Right side pelvic abscess: Diverticulitis versus appendiceal a bscess. Assessment & Plan - Diagnosis (1) Abdominal pain Qualifiers: Abdominal location: left upper quadrant Qualified Code(s): R10.12 - Left upper quadrant pain Is this a current diagnosis for this admission?: Yes (2) Diverticulitis Is this a current diagnosis for this admission?: Yes (3) Hypertension Qualifiers: Hypertension type: essential hypertension Qualified Code(s): I10 - Essential (primary) hypertension Is this a current diagnosis for this admission?: Yes (4) Intra-abdominal abscess Is this a current diagnosis for this admission?: Yes (5) Obesity Qualifiers: Obesity type: unspecified obesity type Body mass index: BMI 32.0-32.9 Is this a current diagnosis for this admission?: Yes - Time Time Spent with patient: 15-24 minutes - Inpatient Certification Medical Necessity: Need For IV Fluids, Need for IV Antibiotics - Plan Summary Plan Summary: D/W Radiologist. Abscess not well amenable to percutaneous drainage Continue IV antibiotics Keep NPO except small amount ice chips just to wet mouth Re-evaluate in am ' If pains worsen or develops N/V will do Exploratory laparotomy/colostomy Check WBC in am
[2019-03-22] MEDS ORDERED: NORMAL SALINE 1000 ML 1,000 ML IV PRN (11:30)
--- NOTE | 2019-03-22 16:27 | PDOC PROGRESS REPORT ---
Subjective Progress Note for:: 03/22/19 Subjective:: 73-year-old female who was admitted last night through the emergency room for a abdominal abscess. Is currently n.p.o. and taking IV antibiotics. She is being seen on her frequent basis by general surgery Reason For Visit: ABDOMINAL PAIN, LEUKOCYTOSIS,HYPERTENSION,LUMBAR Physical Exam Vital Signs: Temp Pulse Resp BP Pulse Ox 99.3 F 93 18 97/62 L 94 03/22/19 12:13 03/22/19 12:13 03/22/19 12:13 03/22/19 12:13 03/22/19 12:13 Intake & Output 03/21/19 03/22/19 03/23/19 06:59 06:59 06:59 Intake Total 2132 Balance 2132 Weight 77.4 kg General appearance: PRESENT: no acute distress, other - Talking in full sentences, no vomiting Respiratory exam: PRESENT: clear to auscultation telly. ABSENT: rales, rhonchi, wheezes Cardiovascular exam: PRESENT: RRR. ABSENT: diastolic murmur, rubs, systolic murmur GI/Abdominal exam: PRESENT: hypoactive bowel sounds, soft, tenderness - Right and left lower quadrant Neurological exam: PRESENT: alert, awake, oriented to person, oriented to place, oriented to time, oriented to situation, CN II-XII grossly intact. ABSENT: motor sensory deficit Psychiatric exam: PRESENT: appropriate affect, normal mood. ABSENT: homicidal ideation, suicidal ideation Results Laboratory Results: 03/22/19 03:37 03/22/19 03:37 03/21/19 03/22/19 03/22/19 12:55 03:37 03:37 WBC 21.2 H RBC 3.84 Hgb 11.4 L Hct 34.1 L MCV 89 MCH 29.8 MCHC 33.6 RDW 14.5 H Plt Count 338 Seg Neutrophils % Not Reportable Sodium 135.3 L Potassium 3.4 L Chloride 101 Carbon Dioxide 24 Anion Gap 10 BUN 11 Creatinine 0.67 Est GFR ( Amer) > 60 Glucose 82 Calcium 8.2 L Magnesium 2.0 Amylase 36 Impressions: Acute Abdomen Series 03/21/19 12:29 IMPRESSION: Mild constipation. Abdomen/Pelvis CT 03/21/19 15:57 IMPRESSION: Right side pelvic abscess: Diverticulitis versus appendiceal abscess. Assessment and Plan - Diagnosis (1) Abdominal pain Qualifiers: Abdominal location: left upper quadrant Qualified Code(s): R10.12 - Left upper quadrant pain Is this a current diagnosis for this admission?: Yes (2) Diverticulitis Is this a current diagnosis for this admission?: Yes (3) Hypertension Qualifiers: Hypertension type: essential hypertension Qualified Code(s): I10 - Essential (primary) hypertension Is this a current diagnosis for this admission?: Yes (4) Intra-abdominal abscess Is this a current diagnosis for this admission?: Yes (5) Obesity Qualifiers: Obesity type: unspecified obesity type Body mass index: BMI 32.0-32.9 Is this a current diagnosis for this admission?: Yes - Plan Summary Summary: 03/21/2019 Patient has been seen in consultation and examined by general surgery, Dr. Roberto, who feels like the patient should be kept n.p.o., IV fluids, IV antibiotics, and reevaluated in the morning.. He feels like it would be best to possibly drain the abscess with CT guided drainage, and reevaluate the patient afterwards. Patient was informed however that plans could change based on her clinical condition. She has a significant drug allergy to the penicillins will be placed on IV Flagyl and IV ciprofloxacin. Currently patient is up and ambulatory to the bathroom and in no acute distress. Patient had all of her questions answered satisfied with the plan. 03/22/2019 This morning early temperature was 98.4 around noon it is gone up to 99.3. High as it got up to yesterday was 100.1 which was 93 this morning blood pressure. O2 sat between 9496% on room air no respiratory distress Count down slightly 21.2. Amylase and lipase normal, magnesium normal, electrolytes grossly normal We will continue to monitor with IV antibiotics, serial labs, patient's clinical presentation. She is aware of the plan. Currently the patient is hemodyn amically stable - Time Time Spent with patient: 25-34 minutes
[2019-03-22] MEDS: DEXTROSE 5%-1/2 NORMAL SALINE 1,000 ML IV PRN (17:13)
[2019-03-23] MEDS: METRONIDAZOLE 500 MG/NS RTU 250 MG in CONTAINER,EMPTY 1 EACH IV SCH ×3 (01:14→17:30)
[2019-03-23] MEDS: DEXTROSE 5%-1/2 NORMAL SALINE 1,000 ML IV PRN ×3 (01:14→16:53)
[2019-03-23] MEDS: MORPHINE SULFATE 10 MG/ML INJ IV PRN ×5 (01:18→21:10)
[2019-03-23] MEDS: CIPROFLOXACIN 400 MG/D5W RTU 400 MG/200 ML RTUPB IV SCH ×2 (05:03→17:27)
[2019-03-23 05:53] LABS: HEMATOCRIT 31.5 % (36.0-47.0); HEMOGLOBIN 10.3 g/dL (12.0-15.5); MEAN CORPUSCULAR HEMOGLOBIN 29.2 pg (27.0-33.4); MEAN CORPUSCULAR HGB CONC 32.9 g/dL (32.0-36.0); MEAN CORPUSCULAR VOLUME 89 fl (80-97); PLATELET COUNT 371 10^3/uL (150-450); RED BLOOD COUNT 3.55 10^6/uL (3.72-5.28); RED CELL DISTRIBUTION WIDTH 14.2 % (11.5-14.0); WHITE BLOOD COUNT 29.6 10^3/uL (4.0-10.5)
[2019-03-23 06:23] LABS: ALBUMIN 2.5 g/dL (3.5-5.0); ALKALINE PHOSPHATASE 101 U/L (38-126); ANION GAP 9 (5-19); ASPARTATE AMINO TRANSFERASE 28 U/L (14-36); BILIRUBIN,DIRECT 0.6 mg/dL (0.0-0.4); BLOOD UREA NITROGEN 15 mg/dL (7-20); CALCIUM 8.2 mg/dL (8.4-10.2); CARBON DIOXIDE 24 mmol/L (22-30); CHLORIDE 101 mmol/L (98-107); GLUCOSE 137 mg/dL (75-110); POTASSIUM 3.6 mmol/L (3.6-5.0); TOTAL PROTEIN 5.1 g/dL (6.3-8.2)
[2019-03-23 07:16] LABS: ABSOLUTE LYMPHOCYTES# (MANUAL) 0.6 10^3/uL (0.5-4.7); ABSOLUTE MONOCYTES # (MANUAL) 1.5 10^3/uL (0.1-1.4); ANISOCYTOSIS SLIGHT; BAND NEUTROPHILS % (MANUAL) 5 % (3-5); BASOPHILS % (MANUAL) 0 % (0-2); EOSINOPHILS % (MANUAL) 0 % (0-6); LYMPHOCYTES % (MANUAL) 2 % (13-45); MONOCYTES % (MANUAL) 5 % (3-13); SEGMENTED NEUTROPHILS % (MAN) 88 % (42-78); TOTAL CELLS COUNTED 100
[2019-03-23 07:17] LABS: PLATELET COMMENT ADEQUATE
[2019-03-23] MEDS: INSULIN LISPRO 100 UNIT/ML 3 ML VIAL SUBCUT SCH ×4 (10:40→21:41)
[2019-03-23] MEDS: FAMOTIDINE INJ/PF 20 MG/2 ML SDV IV SCH ×2 (10:42→21:10)
[2019-03-23] MEDS ORDERED: FUROSEMIDE INJ/PF 40 MG/4 ML SDV IV ONE (11:30)
--- NOTE | 2019-03-23 12:04 | PDOC PROGRESS REPORT ---
Subjective Progress Note for:: 03/23/19 Subjective:: 73-year-old female who was admitted last night through the emergency room for a abdominal abscess. Is currently n.p.o. and taking IV antibiotics. She is being seen on her frequent basis by general surgery 03/22/2019 Patient's white count is come down to 21,000. She does not appear to be in significant pain 03/23/2019 White count is gone up today to 29,600 Clinically patient is still up and ambulatory, not appear to be unstable Reason For Visit: ABDOMINAL PAIN, LEUKOCYTOSIS,HYPERTENSION,LUMBAR Physical Exam Vital Signs: Temp Pulse Resp BP Pulse Ox 97.9 F 86 16 103/62 95 03/23/19 07:39 03/23/19 07:39 03/23/19 07:39 03/23/19 07:39 03/22/19 23:38 Intake & Output 03/22/19 03/23/19 03/24/19 06:59 06:59 06:59 Intake Total 2132 2400 Balance 2132 2400 Weight 77.4 kg 78 kg General appearance: PRESENT: no acute distress Respiratory exam: PRESENT: clear to auscultation telly. ABSENT: rales, rhonchi, wheezes Cardiovascular exam: PRESENT: RRR. ABSENT: diastolic murmur, rubs, systolic murmur GI/Abdominal exam: PRESENT: normal bowel sounds, tenderness - Both right and left lower quadrants mild to palpation Neurological exam: PRESENT: alert, awake, oriented to person, oriented to place, oriented to time, oriented to situation, CN II-XII grossly intact. ABSENT: motor sensory deficit Psychiatric exam: PRESENT: appropriate affect, normal mood. ABSENT: homicidal ideation, suicidal ideation Results Laboratory Results: 03/23/19 04:53 03/23/19 04:53 03/23/19 03/23/19 04:53 04:53 WBC 29.6 H RBC 3.55 L Hgb 10.3 L Hct 31.5 L MCV 89 MCH 29.2 MCHC 32.9 RDW 14.2 H Plt Count 371 Seg Neutrophils % Not Reportable Sodium 134.4 L Potassium 3.6 Chloride 101 Carbon Dioxide 24 Anion Gap 9 BUN 15 Creatinine 0.63 Est GFR ( Amer) > 60 Glucose 137 H Calcium 8.2 L Total Bilirubin 1.0 AST 28 Alkaline Phosphatase 101 Total Protein 5.1 L Albumin 2.5 L Impressions: Acute Abdomen Series 03/21/19 12:29 IMPRESSION: Mild constipation. Abdomen/Pelvis CT 03/21/19 15:57 IMPRESSION: Right side pelvic abscess: Diverticulitis versus appendiceal absce ss. Assessment and Plan - Diagnosis (1) Abdominal pain Qualifiers: Abdominal location: left upper quadrant Qualified Code(s): R10.12 - Left upper quadrant pain Is this a current diagnosis for this admission?: Yes (2) Diverticulitis Is this a current diagnosis for this admission?: Yes (3) Hypertension Qualifiers: Hypertension type: essential hypertension Qualified Code(s): I10 - Essential (primary) hypertension Is this a current diagnosis for this admission?: Yes (4) Intra-abdominal abscess Is this a current diagnosis for this admission?: Yes (5) Obesity Qualifiers: Obesity type: unspecified obesity type Body mass index: BMI 32.0-32.9 Is this a current diagnosis for this admission?: Yes - Plan Summary Summary: 03/21/2019 Patient has been seen in consultation and examined by general surgery, Dr. Roberto, who feels like the patient should be kept n.p.o., IV fluids, IV antibiotics, and reevaluated in the morning.. He feels like it would be best to possibly drain the abscess with CT guided drainage, and reevaluate the patient afterwards. Patient was informed however that plans could change based on her clinical con dition. She has a significant drug allergy to the penicillins will be placed on IV Flagyl and IV ciprofloxacin. Currently patient is up and ambulatory to the bathroom and in no acute distress. Patient had all of her questions answered satisfied with the plan. 03/22/2019 This morning early temperature was 98.4 around noon it is gone up to 99.3. High as it got up to yesterday was 100.1 which was 93 this morning blood pressure. O2 sat between 9496% on room air no respiratory distress Count down slightly 21.2. Amylase and lipase normal, magnesium normal, electrolytes grossly normal We will continue to monitor with IV antibiotics, serial labs, patient's clinical presentation. She is aware of the plan. Currently the patient is hemodynamically stable 03/23/2019 Due to the white count going up we probably will discuss with general surgery the option of surgery, tomorrow, or sooner if necessary. We will repeat cc in the morning continue close monitor. I put her fluids back today to KVO and gave her 40 of Lasix for some wheezing however patient was not really any more symptomatic than that Patient is still passing flatus, still has bowel sounds, still n.p.o.. Patient agrees with the plan I have talked to general surgery today. - Time Time Spent with patient: 35 or more minutes
[2019-03-23] MEDS ORDERED: POTASSI CL 20 MEQ/50 ML RIDER 20 MEQ/50 ML RTUPB IV SCH (13:00)
[2019-03-23] MEDS: POTASSIUM CHLORIDE 10 MEQ CAPSULE.ER PO SCH (16:59)
--- NOTE | 2019-03-23 17:58 | PDOC PROGRESS REPORT ---
Subjective Progress Note for:: 03/23/19 Subjective:: Still with lower abdominal pains but not any worse than yesterday Still passing flatus and no nausea or vomiting Reason For Visit: ABDOMINAL PAIN, LEUKOCYTOSIS,HYPERTENSION,LUMBAR Physical Exam Vital Signs: Temp Pulse Resp BP Pulse Ox 97.7 F 95 16 111/62 94 03/23/19 16:05 03/23/19 16:05 03/23/19 16:05 03/23/19 16:05 03/23/19 16:05 Intake & Output 03/22/19 03/23/19 03/24/19 06:59 06:59 06:59 Intake Total 2132 2400 1763 Balance 213 2400 1763 Weight 77.4 kg 78 kg General appearance: PRESENT: mild distress Exam: Abdomen is soft with tenderness in both lower quadrants but the rest of the abdomen is benign. Results Laboratory Results: 03/23/19 04:53 03/23/19 04:53 03/23/19 03/23/19 04:53 04:53 WBC 29.6 H RBC 3.55 L Hgb 10.3 L Hct 31.5 L MCV 89 MCH 29.2 MCHC 32.9 RDW 14.2 H Plt Count 371 Seg Neutrophils % Not Reportable Sodium 134.4 L Potassium 3.6 Chloride 101 Carbon Dioxide 24 Anion Gap 9 BUN 15 Creatinine 0.63 Est GFR ( Amer) > 60 Glucose 137 H Calcium 8.2 L Total Bilirubin 1.0 AST 28 Alkaline Phosphatase 101 Total Protein 5.1 L Albumin 2.5 L Impressions: Acute Abdomen Series 03/21/19 12:29 IMPRESSION: Mild constipation. Abdomen/Pelvis CT 03/21/19 15:57 IMPRESSION: Right side pelvic abscess: Diverticulitis versus appendiceal abscess. Assessment & Plan - Diagnosis (1) Abdominal pain Qualifiers: Abdominal location: left upper quadrant Qualified Code(s): R10.12 - Left upper quadrant pain Is this a current diagnosis for this admission?: Yes (2) Diverticulitis Is this a current diagnosis for this admission?: Yes (3) Hypertension Qualifiers: Hypertension type: essential hypertension Qualified Code(s): I10 - Essential (primary) hypertension Is this a current diagnosis for this admission?: Yes (4) Intra-abdominal abscess Is this a current diagnosis for this admission?: Yes (5) Obesity Qualifiers: Obesity type: unspecified obesity type Body mass index: BMI 32.0-32.9 Is this a current diagnosis for this admission?: Yes - Time Time Spent with patient: 15-24 minutes - Inpatient Certification Medical Necessity: Need For IV Fluids, Need for IV Antibiotics - Plan Summary Plan Summary: 73-year-old female with diverticular abscess. Her white count went up to 29,000 and today but clinically patient is afebrile with localized tenderness in the lower abdomen and still passing flatus with no nausea or vomiting. Her diverticular abscess is not amenable to percutaneous drainage. Plan: Continue with IV antibiotics and n.p.o. We will repeat the CBC in the morning. If it continues to go up and then we have to make a decision as far as doing exploratory laparotomy. I have discussed this options or plans with the patient and she agrees.
[2019-03-24] MEDS: METRONIDAZOLE 500 MG/NS RTU 250 MG in CONTAINER,EMPTY 1 EACH IV SCH ×2 (02:04→10:46)
[2019-03-24] MEDS: MORPHINE SULFATE 10 MG/ML INJ IV PRN ×3 (02:09→10:47)
[2019-03-24] MEDS: POTASSIUM CHLORIDE 10 MEQ CAPSULE.ER PO SCH ×2 (05:17→22:53)
[2019-03-24] MEDS: CIPROFLOXACIN 400 MG/D5W RTU 400 MG/200 ML RTUPB IV SCH (05:17)
[2019-03-24 06:36] LABS: HEMATOCRIT 31.6 % (36.0-47.0); HEMOGLOBIN 10.7 g/dL (12.0-15.5); MEAN CORPUSCULAR HEMOGLOBIN 29.6 pg (27.0-33.4); MEAN CORPUSCULAR HGB CONC 33.8 g/dL (32.0-36.0); MEAN CORPUSCULAR VOLUME 88 fl (80-97); PLATELET COUNT 387 10^3/uL (150-450); RED BLOOD COUNT 3.61 10^6/uL (3.72-5.28); RED CELL DISTRIBUTION WIDTH 14.3 % (11.5-14.0); WHITE BLOOD COUNT 25.4 10^3/uL (4.0-10.5)
[2019-03-24 07:04] LABS: ABSOLUTE MONOCYTES # (MANUAL) 1.8 10^3/uL (0.1-1.4); BAND NEUTROPHILS % (MANUAL) 2 % (3-5); BASOPHILS % (MANUAL) 0 % (0-2); EOSINOPHILS % (MANUAL) 0 % (0-6); LYMPHOCYTES % (MANUAL) 0 % (13-45); MONOCYTES % (MANUAL) 7 % (3-13); SEGMENTED NEUTROPHILS % (MAN) 91 % (42-78); TOTAL CELLS COUNTED 100
[2019-03-24 07:05] LABS: ANISOCYTOSIS SLIGHT
[2019-03-24 07:06] LABS: PLATELET COMMENT ADEQUATE
[2019-03-24] MEDS: INSULIN LISPRO 100 UNIT/ML 3 ML VIAL SUBCUT SCH ×4 (08:00→23:01)
--- NOTE | 2019-03-24 10:05 | PDOC PROGRESS REPORT ---
Subjective Progress Note for:: 03/24/19 Subjective:: Patient still n.p.o., on IV fluids and intravenous antibiotics; still having abdominal pain and persisting leukocytosis. No intervention is been performed. Reason For Visit: ABDOMINAL PAIN, LEUKOCYTOSIS,HYPERTENSION,LUMBAR Physical Exam Vital Signs: Temp Pulse Resp BP Pulse Ox 97.5 F 99 16 126/66 H 97 03/24/19 07:15 03/24/19 07:15 03/24/19 07:15 03/24/19 07:15 03/24/19 07:15 Intake & Output 03/23/19 03/24/19 03/25/19 06:59 06:59 06:59 Intake Total 2400 2443 Balance 2400 2443 Weight 78 kg 78 kg General appearance: PRESENT: no acute distress, mild distress GI/Abdominal exam: PRESENT: other - Abdomen is tender in the pelvic region with moderate guarding. Results Laboratory Results: 03/24/19 06:20 03/23/19 04:53 03/24/19 06:20 WBC 25.4 H RBC 3.61 L Hgb 10.7 L Hct 31.6 L MCV 88 MCH 29.6 MCHC 33.8 RDW 14.3 H Plt Count 387 Seg Neutrophils % Not Reportable Impressions: Acute Abdomen Series 03/21/19 12:29 IMPRESSION: Mild constipation. Abdomen/Pelvis CT 03/21/19 15:57 IMPRESSION: Right side pelvic abscess: Diverticulitis versus appendiceal abscess. Assessment & Plan - Diagnosis (1) Intra-abdominal abscess Is this a current diagnosis for this admission?: Yes Plan: Impression: Persisting intrapelvic abscess secondary to complicated diverticular disease, without clinical improvement despite IV fluids and intravenous antibiotics. Recommendations: 1. I discussed the current situation with patient and her daughter who is visiting from [place] at bedside. 2. I spoke with Dr. Rosey Stevens, radiologist, who has requested a repeat CT scan of the abdomen and pelvis, to plan for possible interventional drain placement today; conversely if drain not able to be placed, patient may require exporter laparotomy, colectomy and colostomy. This was all explained to patient and daughter this morning. (2) Diverticulitis Is this a current diagnosis for this admission?: Yes (3) Obesity Qualifiers: Obesity type: unspecified obesity type Body mass index: BMI 32.0-32.9 Is this a current diagnosis for this admission?: Yes (4) Hypertension Qualifiers: Hypertension type: essential hypertension Qualified Code(s): I10 - Essential (primary) hypertension Is this a current diagnosis for this admission?: Yes - Time Time Spent with patient: 15-24 minutes Smoking Cessation Education: over 10 minutes
[2019-03-24] MEDS ORDERED: DEXAMETHASONE SOD PHOSPHATE INJ 4 MG/1 ML VIAL ONE (10:30)
[2019-03-24] MEDS ORDERED: ROCURONIUM BROMIDE INJ 50 MG/5 ML VIAL IV ONE (10:30)
[2019-03-24] MEDS ORDERED: LIDOCAINE 2% INJ-PF (20 MG/ML) 2 ML AMPUL ONE (10:30)
[2019-03-24] MEDS ORDERED: METOCLOPRAMIDE HCL INJ/PF 10 MG/2 ML SDV ONE (10:30)
[2019-03-24] MEDS ORDERED: GLYCOPYRROLATE 1 MG/5 ML VIAL ONE (10:30)
[2019-03-24] MEDS ORDERED: KETOROLAC TROMETHAMINE 60 MG/2 ML SDV ONE (10:30)
[2019-03-24] MEDS ORDERED: PHENYLEPHRINE HCL INJ/PF 10 MG/1 ML SDV ONE (10:30)
[2019-03-24] MEDS ORDERED: NEOSTIGMINE METHYLSULFATE 10 MG/10 ML VIAL ONE (10:30)
[2019-03-24] MEDS ORDERED: ONDANSETRON HCL INJ/PF 4 MG/2 ML SDV ONE (10:30)
--- NOTE | 2019-03-24 10:36 | EKG REPORT ---
SEVERITY:- ABNORMAL ECG - SINUS RHYTHM LEFT ANTERIOR FASCICULAR BLOCK : Confirmed by: Nils Alcantara 24-Mar-2019 10:35:50
[2019-03-24] MEDS: FAMOTIDINE INJ/PF 20 MG/2 ML SDV IV SCH ×2 (10:46→23:00)
--- NOTE | 2019-03-24 12:49 | PDOC PROGRESS REPORT ---
Subjective Progress Note for:: 03/24/19 Subjective:: 73-year-old female who was admitted last night through the emergency room for a abdominal abscess. Is currently n.p.o. and taking IV antibiotics. She is being seen on her frequent basis by general surgery 03/22/2019 Patient's white count has come down to 21,000. She does not appear to be in significant pain 03/23/2019 White count is gone up today to 29,600 Clinically patient is still up and ambulatory, not appear to be unstable 03/24/2019 WBCs now 25,400, yesterday electrolytes are basically normal. His pain medication was increased slightly yesterday from 2 mg of morphine to 3 mg of morphine IV to 4 hours at the patient's request Reason For Visit: ABDOMINAL PAIN, LEUKOCYTOSIS,HYPERTENSION,LUMBAR Physical Exam Vital Signs: Temp Pulse Resp BP Pulse Ox 97.5 F 99 16 126/66 H 97 03/24/19 07:15 03/24/19 07:15 03/24/19 07:15 03/24/19 07:15 03/24/19 07:15 Intake & Output 03/23/19 03/24/19 03/25/19 06:59 06:59 06:59 Intake Total 2400 2443 Balance 2400 2443 Weight 78 kg 78 kg General appearance: PRESENT: no acute distress, other - Long as patient is lying down in bed she has very little abdominal pain Respiratory exam: PRESENT: clear to auscultation telly. ABSENT: rales, rhonchi, wheezes Cardiovascular exam: PRESENT: RRR. ABSENT: diastolic murmur, rubs, systolic murmur GI/Abdominal exam: PRESENT: soft, tenderness - Tender to palpate left lower quadrant right lower quadrant and suprapubic, abdomen however is soft Neurological exam: PRESENT: alert, awake, oriented to person, oriented to place, oriented to time, oriented to situation, CN II-XII grossly intact. ABSENT: motor sensory deficit Psychiatric exam: PRESENT: appropriate affect, normal mood. ABSENT: homicidal ideation, suicidal ideation Results Laboratory Results: 03/24/19 06:20 03/23/19 04:53 03/24/19 06:20 WBC 25.4 H RBC 3.61 L Hgb 10.7 L Hct 31.6 L MCV 88 MCH 29.6 MCHC 33.8 RDW 14.3 H Plt Count 387 Seg Neutrophils % Not Reportable Impressions: Acute Abdomen Series 03/21/19 12:29 IMPRESSION: Mild constipation. Abdomen/Pelvis CT 03/21/19 15:57 IMPRESSION: Right side pelvic abscess: Diverticulitis versus appendiceal abscess. Assessment and Plan - Diagnosis (1) Abdominal pain Qualifiers: Abdominal location: left upper quadrant Qualified Code(s): R10.12 - Left upper quadrant pain Is this a current diagnosis for this admission?: Yes (2) Diverticulitis Is this a current diagnosis for this admission?: Yes (3) Hypertension Qualifiers: Hypertension type: essential hypertension Qualified Code(s): I10 - Essential (primary) hypertension Is this a current diagnosis for this admission?: Yes (4) Intra-abdominal abscess Is this a current diagnosis for this admission?: Yes (5) Obesity Qualifiers: Obesity type: unspecified obesity type Body mass index: BMI 32.0-32.9 Is this a current diagnosis for this admission?: Yes - Plan Summary Summary: 03/21/2019 Patient has been seen in consultation and examined by general surgery, Dr. Roberto, who feels like the patient should be kept n.p.o., IV fluids, IV antibiotics, and reevaluated in the morning.. He feels like it would be best to possibly drain the abscess with CT guided drainage, and reevaluate the patient afterwards. Patient was informed however that plans could change based on her clinical condi tion. She has a significant drug allergy to the penicillins will be placed on IV Flagyl and IV ciprofloxacin. Currently patient is up and ambulatory to the bathroom and in no acute distress. Patient had all of her questions answered satisfied with the plan. 03/22/2019 This morning early temperature was 98.4 around noon it is gone up to 99.3. High as it got up to yesterday was 100.1 which was 93 this morning blood pressure. O2 sat between 9496% on room air no respiratory distress Count down slightly 21.2. Amylase and lipase normal, magnesium normal, electrolytes grossly normal We will continue to monitor with IV antibiotics, serial labs, patient's clinical presentation. She is aware of the plan. Currently the patient is hemodynamically stable 03/23/2019 Due to the white count going up we probably will discuss with general surgery the option of surgery, tomorrow, or sooner if necessary. We will repeat cbc in the morning continue close monitor. I put her fluids back today to KVO and gave her 40 of Lasix for some wheezing however patient was not really any more symptomatic than that Patient is still passing flatus, still has bowel sounds, still n.p.o.. Patient agrees with the plan I have talked to general surgery today. 03/24/2019 She seems to be making any progress at this time. No surgery has seen the patient would like her to undergo a CT-guided percutaneous drainage of the abscess. Spent a great deal of time talking to the patient and especially her daughter about the different options. Patient's fluids have been cut back to KVO, 30 mL's per hour. Patient's renal functions will be monitored. Continue IV Cipro and Flagyl for now - Time Time Spent with patient: 35 or more minutes
--- NOTE | 2019-03-24 14:09 | RADIOLOGY REPORT (SQ) ---
EXAM DESCRIPTION: CT ABD/PELVIS WITH IV ORAL COMPLETED DATE/TIME: 03/24/2019 1:20 pm REASON FOR STUDY: pelvic abscess COMPARISON: 03/21/2019. TECHNIQUE: CT scan of the abdomen and pelvis performed with intravenous and oral contrast using brenda philomena scanning technique with dynamic intravenous contrast injection. Images reviewed with lung, soft t issue, and bone windows. Reconstructed coronal and sagittal MPR images reviewed. Delayed images for e valuation of the urinary system also acquired. All images stored on PACS. All CT scanners at this facility use dose modulation, iterative reconstruction, and/or weight based d osing when appropriate to reduce radiation dose to as low as reasonably achievable (ALARA). [facility]: Dose Right [facility]: CareDose [facility]: Dose Right [facility]: Teradose 4D [facility]: Dheere Bolo CONTRAST TYPE AND DOSE: contrast/concentration: Isovue 350.00 mg/ml; Total Contrast Delivered: 89.0 ml; Total Saline Delivered: 70.0 ml RENAL FUNCTION: BUN 15 creatinine 0.63. RADIATION DOSE: CT Rad equipment meets quality standard of care and radiation dose reduction techniq ues were employed. CTDIvol: 11.8 - 15.8 mGy. DLP: 1460 mGy-cm. . LIMITATIONS: None. FINDINGS: LOWER CHEST: No significant findings. No nodules or infiltrates. LIVER: Normal size. Small low-attenuation lesions in the right and left lobe. No dilated ducts. SPLEEN: Normal size. No focal lesions. PANCREAS: No masses. No significant calcifications. No adjacent inflammation or peripancreatic fluid collections. Pancreatic duct not dilated. GALLBLADDER: Surgically absent. ADRENAL GLANDS: No significant masses or asymmetry. RIGHT KIDNEY AND URETER: No solid masses. No significant calcifications. No hydronephrosis or hyd roureter. LEFT KIDNEY AND URETER: No solid masses. No significant calcifications. No hydronephrosis or hydr oureter. AORTA AND VESSELS: No aneurysm. No dissection. Renal arteries, SMA, celiac without stenosis. RETROPERITONEUM: No retroperitoneal adenopathy, hemorrhage or masses. BOWEL AND PERITONEAL CAVITY: Again seen are numerous diverticuli in the sigmoid colon. The previousl y seen pelvic abscess has increased in size with numerous air-fluid levels and multiple loculations. There is also evidence of free intraperitoneal air with a few bubbles of gas located under the diaph ragm adjacent to the liver (axial series 3, image 13 and image 14). APPENDIX: Normal. PELVIS: No significant masses. Normal bladder. No free fluid. ABDOMINAL WALL: No masses. No hernias. BONES: Surgical changes in the lumbar spine with hardware. OTHER: No other significant finding. IMPRESSION: 1. SIGMOID DIVERTICULITIS. WORSENING PELVIC ABSCESS. MULTIPLE LOCULATIONS AND AIR-FLUID LEVELS. TH ERE IS ALSO A SMALL AMOUNT OF FREE INTRAPERITONEAL AIR CONCERNING FOR PERFORATION. 2. SMALL LOW-ATTENUATION LESIONS IN THE LIVER. THE LESION IN THE LEFT LOBE IS PROBABLY A CYST AND IN THE RIGHT LOBE PROBABLY A HEMANGIOMA. 3. NO OTHER SIGNIFICANT OR ACUTE FINDINGS IN THE ABDOMEN OR PELVIS. TECHNICAL DOCUMENTATION: JOB ID: [id number] Quality ID # [id number]: Final reports with documentation of one or more dose reduction techniques (e.g., Au tomated exposure control, adjustment of the mA and/or kV according to patient size, use of iterative reconstruction technique) 2010 [employer]- All Rights Reserved Reading location - IP/workstation name: [email or web address]
[2019-03-24] MEDS ORDERED: FENTANYL CITRATE INJ/PF 100 MCG/2 ML AMPUL ONE ×2 (15:54→20:57)
[2019-03-24] MEDS ORDERED: LIDOCAINE 2% INJ-PF (20 MG/ML) 10 ML AMPUL ONE (15:54)
[2019-03-24] MEDS ORDERED: MIDAZOLAM 2 MG/2 ML INJ ONE (15:55)
[2019-03-24] MEDS ORDERED: PROPOFOL INJ 200 MG/20 ML VIAL IV ONE (15:55)
[2019-03-24] MEDS ORDERED: EPHEDRINE SULFATE INJ 50 MG/1 ML AMPULE ONE (15:55)
[2019-03-24] MEDS ORDERED: HYDROMORPHONE HCL INJ/PF 2 MG/ML AMPULE ONE (15:55)
[2019-03-24] MEDS ORDERED: BUPIVACAINE INJ/PF LIPOSOME/PF 266 MG/20 ML SDV ONE (17:00)
[2019-03-24] MEDS ORDERED: DIPHENHYDRAMINE HCL 50 MG/ML VIAL IV PRN (18:10)
[2019-03-24] MEDS ORDERED: OXYCODONE-ACETAMINOPHEN 5-325 MG TABLET PO PRN ×2 (18:10)
[2019-03-24] MEDS ORDERED: MEPERIDINE HCL/PF INJ 25 MG/1 ML DISP.SYRIN IV PRN (18:10)
[2019-03-24] MEDS ORDERED: ONDANSETRON HCL INJ/PF 4 MG/2 ML SDV IV PRN (18:10)
[2019-03-24] MEDS ORDERED: FENTANYL CITRATE INJ/PF 100 MCG/2 ML AMPUL IV PRN ×3 (18:10)
[2019-03-24] MEDS ORDERED: PROMETHAZINE HCL INJ 25 MG/1 ML VIAL IV PRN ×2 (18:10)
--- NOTE | 2019-03-24 20:54 | Operative Report ---
Operative Report DATE OF SURGERY: 03/24/19 PREOPERATIVE DIAGNOSIS: 1. Complicated diverticulitis with expanding pericolon ic and pelvic abscesses. 2. Sepsis POSTOPERATIVE DIAGNOSIS: Same OPERATION: 1. Left subclavian central venous access catheter placement. 2. Exploratory laparotomy. 3. Recto-sigmoid colectomy. 4. Diverting left colostomy. 5. Pelvic debridement, washout and drain placement x2 SURGEON: CAMILA ROBERTO ANESTHESIA: GA TISSUE REMOVED OR ALTERED: Rectosigmoid colon; Fibrinous debris from the pelvis COMPLICATIONS: None ESTIMATED BLOOD LOSS: 200 cc INTRAOPERATIVE FINDINGS: See below PROCEDURE: Indication for operation: The patient is a 73-year-old white female admitted to the hospitalist service with surgery consulting 4 days ago with a pericolonic and pelvic abscesses treated with IV antibiotics. Attempts were made at percutaneous drainage but resources were limited at [facility], and accessibility to the abscess cavities felt to be poor. Patient had a follow-up CT scan today, March 24 which revealed expansion of the abscess cavity with more pelvic extraluminal air. Patient had persisting tenderness, leukocytosis of 25,000,felt to have failed medical management and needed exploratory laparotomy. This was explained to her, and her daughter. They expressed understanding agree to proceed. Patient was taken to the operating room and general anesthesia was induced. Arms were abducted, Jacobson catheter inserted with clear yellow returning. The left subclavian area was prepped and draped sterile fashion, using Seldinger technique, a triple-lumen central venous access catheter was threaded into the left subclavian vein without difficulty. There was excellent blood flow through all 3 lm. Catheter flushed with heparinized saline, secured to the skin at 2 sites with 2 silk suture, Biopatch and sterile OpSite applied. Second timeout conducted. The abdomen was prepped and draped in sterile fashion. Standard midline incision was made above and primarily below the umbilicus. Peritoneal cavity was sharply entered. There was no obvious free air, pus or feces in the abdominal heavily. Bookwalter retractor was inserted. We exposed the pelvis and got into multiple thick walled abscesses primarily on the right but also on the left side of the rectosigmoid colon. The patient still had her uterus, tubes and ovaries. The entire mid and deep pelvis was completely obscured by multiple walled abscesses. The majority of these were broken up found to communicate and contained pus. Unfortunately pus was not sent for culture and sensitivity. The small bowel was packed off, and we mobilized the rectosigmoid colon along the white line of Toldt which was obscured particularly going into the pelvis. The lateral sidewall of the pelvis was from the sigmoid colon using primarily blunt dissection. This was rather bloody at times. Left ureter was not directly visualized. We stayed close to bowel wall throughout the dissection. Suitable site for transection of the colon was chosen at the proximal sigmoid level. The colon was transected with a single firing of the 60 mm curvilinear Ethicon stapler. Now took down the mesocolon staying close to the bowel wall with ligature device. Rectosigmoid branch of the GOPAL was ligated proximally distally divided. We continued to use blood mobilization primarily to get around the lower sigmoid colon and upper rectum. The peritoneal reflection was obliterated. The right tube and ovary was grossly distorted if present at all. I merrily due to fibrinous peel it was difficult to delineate the right adnexal anatomy. The uterus was boggy thickened but from the rectum posteriorly. We got around the rectum circumferentially staying close to the bowel wall. The mesorectum was also divided with LigaSure device. A suitable site for transection of the mid rectum was then chosen where the bowel was softer and appeared more normal. It was transected with a second firing of the blue load 60 mm curvilinear stapler. The specimen was taken off the back feels an open by Dr. Roberto and found to have multiple areas of narrowing and lots of intraluminal stool. We now mobilized the left colon by taking down the white line of Toldt proximally. The inferior mesenteric artery and vein were divided high up on the mesentery. The and: Remained viable. We did not mobilize the splenic flexure per se. We now irrigated the pelvis out with multiple liters of saline, and broke up additional loculations. I did not resect any more tissue per se such as peel, peritoneal lining etc. I I believe that all loculations however were broken up satisfactorily. 2 large drains were placed in the pelvis 1 left side, trimmed to the appropriate length and tucked into the left paracolic space. The right drain was trimmed to the appropriate length and tunnel all the way into the deep pelvis behind the uterus above the rectal stump. Drains are secured to the skin with 2-0 Prolene suture. We confirmed appropriate positioning of the nasogastric tube. We inspected the small bowel for any evidence of injury and there was none. We felt that the left colon fully mobilized for colostomy. A suitable site for exit of the colon to the intra-abdominal wall was chosen just to the left of the umbilicus. Skin was opened in a circular fashion with electrocautery, plug of subcutaneous fat removed with cautery, crucifix incision was made in the anterior and posterior rectus sheath. We passed 2 adult fingers through the abdominal wall opening, and brought the left colon up to the intra-abdominal wall satisfactorily without tension or kinking. At this point the sponge and needle counts are correct. We brought the omentum down over the small bowel, confirmed drain to be in good position, and closed the fascia with 2 running #1 PDS sutures, double-stranded. Skin was approximated primarily around the umbilicus but otherwise the midline incision at the skin level was packed open with gauze x3. We now mature the colostomy. The colon was opened with electrocautery. I digitalize the colostomy and it opened up through the fascia nicely into the peritoneal cavity without kinking. Appropriate appliance was applied. Midline dressing applied. Abdominal binder applied. Patient tolerated procedure well. She received approximately 3 L of saline during the case. Estimated blood loss was felt to be 200 cc. She was taken to the recovery room extubated. Chest x-ray pending at time dictation.
[2019-03-24] MEDS ORDERED: PROMETHAZINE HCL INJ 25 MG/1 ML VIAL ONE (20:57)
--- NOTE | 2019-03-24 21:13 | RADIOLOGY REPORT (SQ) ---
EXAM DESCRIPTION: RadLex: XR CHEST 1 VIEW CLINICAL HISTORY: 73 years Female, Postop status post line insertion FINDINGS: Since 03/21/2019, enteric tube is been placed, extending into the stomach. The tip is now seen on this image. A left subclavian line has been placed. The tip of the catheter extends retrograde in the left internal jugular vein, extending above the level of this image. Consider repositioning. No pneumothorax. IMPRESSION: 1. Suboptimal left subclavian line placement, extending retrograde in the left internal jugular vein. Consider repositioning. 2. No pneumothorax.
[2019-03-24] MEDS ORDERED: METRONIDAZOLE 500 MG/NS RTU 250 MG in CONTAINER,EMPTY 1 EACH IV ONE (22:30)
[2019-03-24] MEDS ORDERED: CIPROFLOXACIN 400 MG/D5W RTU 400 MG/200 ML RTUPB IV ONE (23:00)
[2019-03-24] MEDS: RINGERS SOLUTION,LACTATED 1,000 ML IV PRN (23:49)
[2019-03-25] MEDS: POTASSIUM CHLORIDE 10 MEQ CAPSULE.ER PO SCH ×2 (05:36→18:48)
[2019-03-25] MEDS: METRONIDAZOLE 500 MG/NS RTU 250 MG in CONTAINER,EMPTY 1 EACH IV SCH ×4 (05:52→22:23)
[2019-03-25] MEDS: CIPROFLOXACIN 400 MG/D5W RTU 400 MG/200 ML RTUPB IV SCH ×3 (07:31→23:48)
[2019-03-25] MEDS: MORPHINE SULFATE 10 MG/ML INJ IV PRN (07:38)
[2019-03-25] MEDS: INSULIN LISPRO 100 UNIT/ML 3 ML VIAL SUBCUT SCH ×4 (07:59→22:14)
[2019-03-25 08:26] LABS: HEMATOCRIT 30.9 % (36.0-47.0); HEMOGLOBIN 10.2 g/dL (12.0-15.5); MEAN CORPUSCULAR HEMOGLOBIN 29.2 pg (27.0-33.4); MEAN CORPUSCULAR VOLUME 89 fl (80-97); PLATELET COUNT 448 10^3/uL (150-450); RED BLOOD COUNT 3.49 10^6/uL (3.72-5.28); RED CELL DISTRIBUTION WIDTH 14.3 % (11.5-14.0); WHITE BLOOD COUNT 23.3 10^3/uL (4.0-10.5)
[2019-03-25 08:45] LABS: ABSOLUTE LYMPHOCYTES# (MANUAL) 0.7 10^3/uL (0.5-4.7); ABSOLUTE MONOCYTES # (MANUAL) 0.5 10^3/uL (0.1-1.4); ANION GAP 5 (5-19); BASOPHILS % (MANUAL) 0 % (0-2); BLOOD UREA NITROGEN 12 mg/dL (7-20); CALCIUM 8.3 mg/dL (8.4-10.2); CARBON DIOXIDE 30 mmol/L (22-30); CHLORIDE 103 mmol/L (98-107); EOSINOPHILS % (MANUAL) 0 % (0-6); GLUCOSE 118 mg/dL (75-110); LYMPHOCYTES % (MANUAL) 2 % (13-45); MONOCYTES % (MANUAL) 2 % (3-13); POTASSIUM 4.1 mmol/L (3.6-5.0); SEGMENTED NEUTROPHILS % (MAN) 95 % (42-78); TOTAL CELLS COUNTED 100
[2019-03-25 08:46] LABS: ANISOCYTOSIS SLIGHT; PLATELET COMMENT ADEQUATE; POLYCHROMASIA SLIGHT; TOXIC VACUOLATION PRESENT
[2019-03-25] MEDS ORDERED: HYDROMORPHONE HCL INJ/PF 2 MG/ML AMPULE IV PRN ×2 (09:33→09:51)
[2019-03-25] MEDS ORDERED: PHENOL/SODIUM PHENOLATE 100 SPRAY/177 ML BOTTLE PO PRN (09:52)
[2019-03-25] MEDS ORDERED: PROMETHAZINE HCL INJ 25 MG/1 ML VIAL IV PRN (10:00)
--- NOTE | 2019-03-25 10:09 | PDOC PROGRESS REPORT ---
Subjective Progress Note for:: 03/25/19 Subjective:: 73-year-old female who was admitted last night through the emergency room for a abdominal abscess. Is currently n.p.o. and taking IV antibiotics. She is being seen on her frequent basis by general surgery 03/22/2019 Patient's white count has come down to 21,000. She does not appear to be in significant pain 03/23/2019 White count is gone up today to 29,600 Clinically patient is still up and ambulatory, not appear to be unstable 03/24/2019 WBCs now 25,400, yesterday electrolytes are basically normal. His pain medication was increased slightly yesterday from 2 mg of morphine to 3 mg of morphine IV to 4 hours at the patient's request 03/25/2019 Patient ended up having exploratory laparotomy last night with colostomy secondary to significant abdominal abscess. She looks extremely well considering the magnitude of surgery. Patient is using very little pain medication. Reason For Visit: ABDOMINAL PAIN, LEUKOCYTOSIS,HYPERTENSION,LUMBAR Physical Exam Vital Signs: Temp Pulse Resp BP Pulse Ox 97.6 F 84 18 118/73 98 03/25/19 08:00 03/25/19 08:00 03/25/19 08:00 03/25/19 08:00 03/25/19 08:00 Intake & Output 03/24/19 03/25/19 03/26/19 06:59 06:59 06:59 Intake Total 2443 03216 Output Total 7635 Balance 2443 2464 Weight 78 kg 84.8 kg General appearance: PRESENT: mild distress, other - Secondary to surgery Respiratory exam: PRESENT: clear to auscultation telly. ABSENT: rales, rhonchi, wheezes Cardiovascular exam: PRESENT: RRR. ABSENT: diastolic murmur, rubs, systolic murmur GI/Abdominal exam: PRESENT: other - Deferred to general surgery Neurological exam: PRESENT: alert, awake, oriented to person, oriented to place, oriented to time, oriented to situation, CN II-XII grossly intact. ABSENT: motor sensory deficit Psychiatric exam: PRESENT: appropriate affect, normal mood. ABSENT: homicidal ideation, suicidal ideation Results Laboratory Results: 03/25/19 08:07 03/25/19 08:07 03/24/19 03/25/19 03/25/19 19:38 08:07 08:07 WBC 23.3 H RBC 3.49 L Hgb 10.2 L Hct 30.9 L MCV 89 MCH 29.2 MCHC 33.0 RDW 14.3 H Plt Count 448 Seg Neutrophils % Not Reportable Sodium 138.4 Potassium 4.1 Chloride 103 Carbon Dioxide 30 Anion Gap 5 BUN 12 Creatinine 0.56 Est GFR ( Amer) > 60 Glucose 118 H Calcium 8.3 L Blood Type O POSITIVE Antibody Screen NEGATIVE Impressions: Acute Abdomen Series 03/21/19 12:29 IMPRESSION: Mild constipation. Abdomen/Pelvis CT 03/24/19 00:00 IMPRESSION: 1. SIGMOID DIVERTICULITIS. WORSENING PELVIC ABSCESS. MULTIPLE LOCULATIONS AND AIR-FLUID LEVELS. THERE IS ALSO A SMALL AMOUNT OF FREE INTRAPERITONEAL AIR CONCERNING FOR PERFORATION. 2. SMALL LOW-ATTENUATION LESIONS IN THE LIVER. THE LESION IN THE LEFT LOBE IS PROBABLY A CYST AND IN THE RIGHT LOBE PROBABLY A HEMANGIOMA. 3. NO OTHER SIGNIFICANT OR ACUTE FINDINGS IN THE ABDOMEN OR PELVIS. Chest X-Ray 03/24/19 20:38 IMPRESSION: 1. Suboptimal left subclavian line placement, extending retrograde in the left internal jugular vein. Consider repositioning. 2. No pneumothorax. Assessment and Plan - Diagnosis (1) Abdominal pain Qualifiers: Abdominal location: left upper quadrant Qualified Code(s): R10.12 - Left upper quadrant pain Is this a current diagnosis for this admission?: Yes (2) Diverticulitis Is this a current diagnosis for this admission?: Yes (3) Hypertension Qualifiers: Hypertension type: essential hypertension Qualified Code(s): I10 - Essential (primary) hypertension Is this a current diagnosis for this admission?: Yes (4) Intra-abdominal abscess Is this a current diagnosis for this admission?: Yes (5) Obesity Qualifiers: Obesity type: unspecified obesity type Body mass index: BMI 32.0-32.9 Is this a current diagnosis for this admission?: Yes - Plan Summary Summary: 03/21/2019 Patient has been seen in consultation and examined by general surgery, Dr. Roberto, who feels like the patient should be kept n.p.o., IV fluids, IV antibiotics, and reevaluated in the morning.. He feels like it would be best to possibly drain the abscess with CT guided drainage, and reevaluate the patient afterwards. Patient was informed however that plans could change based on her clinical condition. She has a significant drug allergy to the penicillins will be placed on IV Flagyl and IV ciprofloxacin. Currently patient is up and ambulatory to the bathroom and in no acute distress. Patient had all of her questions answered satisfied with the plan. 03/22/2019 This morning early temperature was 98.4 around noon it is gone up to 99.3. High as it got up to yesterday was 100.1 which was 93 this morning blood pressure. O2 sat between 9496% on room air no respiratory distress Count down slightly 21.2. Amylase and lipase normal, magnesium normal, electrolytes grossly normal We will continue to monitor with IV antibiotics, serial labs, patient's clinical presentation. She is aware of the plan. Currently the patient is hemodynamically stable 03/23/2019 Due to the white count going up we probably will discuss with general surgery the option of surgery, tomorrow, or sooner if necessary. We will repeat cbc in the morning continue close monitor. I put her fluids back today to KVO and gave her 40 of Lasix for some wheezing however patient was not really any more symptomatic than that Patient is still passing flatus, still has bowel sounds, still n.p.o.. Patient agrees with the plan I have talked to general surgery today. 03/24/2019 She seems to be making any progress at this time. No surgery has seen the patient would like her to undergo a CT-guided percutaneous drainage of the abscess. Spent a great deal of time talking to the patient and especially her daughter about the different options. Patient's fluids have been cut back to KVO, 30 mL's per hour. Patient's renal functions will be monitored. Continue IV Cipro and Flagyl for now 03/25/2019 Patient's vital signs are stable. White count today is 23,300 which is an improvement from yesterday, actually considering the amount of surgery she had yesterday is acceptable. H&H is unchanged from yesterday, electrolytes are grossly normal. Patient is hallucinating on morphine and will change her to a low dose of Dilaudid to see if there is any difference. Complaining of a mild sore throat probably secondary to intubation, will add Chloraseptic spray as needed. Patient and family members team satisfied with patient's condition today. Patient's daughter did vent her frustration with postop nursing care. She has been referred to patient service navigator. - Time Time Spent with patient: 35 or more minutes
[2019-03-25] MEDS: FAMOTIDINE INJ/PF 20 MG/2 ML SDV IV SCH ×2 (10:45→22:23)
[2019-03-25] MEDS: RINGERS SOLUTION,LACTATED 1,000 ML IV PRN ×2 (10:49→22:27)
[2019-03-25] MEDS: KETOROLAC TROMETHAMINE INJ/PF 30 MG/1 ML SDV IV SCH ×3 (12:27→23:59)
--- NOTE | 2019-03-25 14:09 | PDOC PROGRESS REPORT ---
Subjective Progress Note for:: 03/25/19 Subjective:: Incisional pains. Asking for ice chips Reason For Visit: ABDOMINAL PAIN, LEUKOCYTOSIS,HYPERTENSION,LUMBAR Physical Exam Vital Signs: Temp Pulse Resp BP Pulse Ox 97.5 F 84 17 116/76 99 03/25/19 12:00 03/25/19 12:00 03/25/19 12:00 03/25/19 12:00 03/25/19 12:00 Intake & Output 03/24/19 03/25/19 03/26/19 06:59 06:59 06:59 Intake Total 2443 53962 1000 Output Total 7635 Balance 2443 2464 1000 Weight 78 kg 84.8 kg 84.8 kg Exam: NGT drainage since this morning about 150 cc of brownish fluid Colostomy not functioning yet. Abdomen is soft with incisional tenderness PEPITO drains about 120 cc total for both Results Laboratory Results: 03/25/19 08:07 03/25/19 08:07 03/24/19 03/25/19 03/25/19 19:38 08:07 08:07 WBC 23.3 H RBC 3.49 L Hgb 10.2 L Hct 30.9 L MCV 89 MCH 29.2 MCHC 33.0 RDW 14.3 H Plt Count 448 Seg Neutrophils % Not Reportable Sodium 138.4 Potassium 4.1 Chloride 103 Carbon Dioxide 30 Anion Gap 5 BUN 12 Creatinine 0.56 Est GFR ( Amer) > 60 Glucose 118 H Calcium 8.3 L Blood Type O POSITIVE Antibody Screen NEGATIVE Impressions: Acute Abdomen Series 03/21/19 12:29 IMPRESSION: Mild constipation. Abdomen/Pelvis CT 03/24/19 00:00 IMPRESSION: 1. SIGMOID DIVERTICULITIS. WORSENING PELVIC ABSCESS. MULTIPLE LOCULATIONS AND AIR-FLUID LEVELS. THERE IS ALSO A SMALL AMOUNT OF FREE INTRAPERITONEAL AIR CONCERNING FOR PERFORATION. 2. SMALL LOW-ATTENUATION LESIONS IN THE LIVER. THE LESION IN THE LEFT LOBE IS PROBABLY A CYST AND IN THE RIGHT LOBE PROBABLY A HEMANGIOMA. 3. NO OTHER SIGNIFICANT OR ACUTE FINDINGS IN THE ABDOMEN OR PELVIS. Chest X-Ray 03/24/19 20:38 IMPRESSION: 1. Suboptimal left subclavian line placement, extending retrograde in the left internal jugular vein. Consider repositioning. 2. No pneumothorax. Assessment & Plan - Diagnosis (1) Abdominal pain Qualifiers: Abdominal location: left upper quadrant Qualified Code(s): R10.12 - Left upper quadrant pain Is this a current diagnosis for this admission?: Yes (2) Diverticulitis Is this a current diagnosis for this admission?: Yes (3) Hypertension Qualifiers: Hypertension type: essential hypertension Qualified Code(s): I10 - Essential (primary) hypertension Is this a current diagnosis for this admission?: Yes (4) Intra-abdominal abscess Is this a current diagnosis for this admission?: Yes (5) Obesity Qualifiers: Obesity type: unspecified obesity type Body mass index: BMI 32.0-32.9 Is this a current diagnosis for this admission?: Yes - Time Time Spent with patient: 15-24 minutes - Inpatient Certification Medical Necessity: Need For IV Fluids, Need for Pain Control, Need for IV Antibiotics - Plan Summary Plan Summary: Postop day 1 post colon resection with end sigmoid colostomy for diverticular abscess Plan: 1) okay to give p.o. ice chips with the NGT in place 2) continue IV fluids and IV antibiotics. 3) DC NG tube tomorrow if colostomy starts to function
[2019-03-26] MEDS: KETOROLAC TROMETHAMINE INJ/PF 30 MG/1 ML SDV IV SCH ×4 (05:25→23:47)
[2019-03-26] MEDS: POTASSIUM CHLORIDE 10 MEQ CAPSULE.ER PO SCH ×2 (05:30→17:01)
[2019-03-26 06:28] LABS: HEMATOCRIT 30.4 % (36.0-47.0); HEMOGLOBIN 10.2 g/dL (12.0-15.5); MEAN CORPUSCULAR HEMOGLOBIN 29.5 pg (27.0-33.4); MEAN CORPUSCULAR HGB CONC 33.5 g/dL (32.0-36.0); MEAN CORPUSCULAR VOLUME 88 fl (80-97); PLATELET COUNT 486 10^3/uL (150-450); RED BLOOD COUNT 3.45 10^6/uL (3.72-5.28); RED CELL DISTRIBUTION WIDTH 14.9 % (11.5-14.0); WHITE BLOOD COUNT 21.7 10^3/uL (4.0-10.5)
[2019-03-26 06:46] LABS: ANION GAP 8 (5-19); BLOOD UREA NITROGEN 18 mg/dL (7-20); CALCIUM 8.3 mg/dL (8.4-10.2); CARBON DIOXIDE 27 mmol/L (22-30); CHLORIDE 108 mmol/L (98-107); GLUCOSE 90 mg/dL (75-110); POTASSIUM 3.9 mmol/L (3.6-5.0)
[2019-03-26 06:59] LABS: ABSOLUTE LYMPHOCYTES# (MANUAL) 1.5 10^3/uL (0.5-4.7); ABSOLUTE MONOCYTES # (MANUAL) 0.4 10^3/uL (0.1-1.4); ANISOCYTOSIS SLIGHT; BAND NEUTROPHILS % (MANUAL) 1 % (3-5); BASOPHILS % (MANUAL) 0 % (0-2); EOSINOPHILS % (MANUAL) 1 % (0-6); HYPOCHROMASIA 1+; LYMPHOCYTES % (MANUAL) 7 % (13-45); MONOCYTES % (MANUAL) 2 % (3-13); OVALOCYTES 1+; PLATELET COMMENT INCREASED; SEGMENTED NEUTROPHILS % (MAN) 89 % (42-78); TOTAL CELLS COUNTED 100
[2019-03-26] MEDS: INSULIN LISPRO 100 UNIT/ML 3 ML VIAL SUBCUT SCH ×3 (07:47→16:57)
[2019-03-26] MEDS: RINGERS SOLUTION,LACTATED 1,000 ML IV PRN ×2 (08:19→18:35)
[2019-03-26] MEDS: FAMOTIDINE INJ/PF 20 MG/2 ML SDV IV SCH ×2 (09:25→21:06)
[2019-03-26] MEDS: CIPROFLOXACIN 400 MG/D5W RTU 400 MG/200 ML RTUPB IV SCH ×2 (09:26→23:47)
[2019-03-26] MEDS: METRONIDAZOLE 500 MG/NS RTU 500 MG/100 ML RTUPB IV SCH ×2 (10:54→21:12)
[2019-03-26] MEDS ORDERED: ALBUTEROL SULFATE 0.083% NEB 2.5 MG/3 ML AMPUL NEB ONE (14:07)
[2019-03-26] MEDS: ALBUTEROL SULFATE 0.083% NEB 2.5 MG/3 ML AMPUL NEB SCH ×2 (14:10→20:06)
--- NOTE | 2019-03-26 17:03 | PDOC PROGRESS REPORT ---
Subjective Progress Note for:: 03/26/19 Subjective:: Incisional pains Reason For Visit: ABDOMINAL PAIN, LEUKOCYTOSIS,HYPERTENSION,LUMBAR Physical Exam Vital Signs: Temp Pulse Resp BP Pulse Ox 97.6 F 88 20 128/74 H 96 03/26/19 12:00 03/26/19 14:10 03/26/19 14:10 03/26/19 12:00 03/26/19 14:10 Intake & Output 03/25/19 03/26/19 03/27/19 06:59 06:59 06:59 Intake Total 58194 3660 300 Output Total 7635 1200 Balance 2464 2460 300 Weight 84.8 kg 80.1 kg Exam: Abdomen is soft nondistended. Colostomy is starting to function. NG tube is starting to have some dark drainage. We will DC the NG tube and start on clear liquids. GI/Abdominal exam: PRESENT: other - 3 packing on the incision site were then removed. Wound looks clean. No new packing's were replaced and will continue to do daily wet-to-dry dressings. Results Laboratory Results: 03/26/19 06:11 03/26/19 06:11 03/26/19 03/26/19 06:11 06:11 WBC 21.7 H RBC 3.45 L Hgb 10.2 L Hct 30.4 L MCV 88 MCH 29.5 MCHC 33.5 RDW 14.9 H Plt Count 486 H Seg Neutrophils % Not Reportable Sodium 142.6 Potassium 3.9 Chloride 108 H Carbon Dioxide 27 Anion Gap 8 BUN 18 Creatinine 0.57 Est GFR ( Amer) > 60 Glucose 90 Calcium 8.3 L Impressions: Acute Abdomen Series 03/21/19 12:29 IMPRESSION: Mild constipation. Abdomen/Pelvis CT 03/24/19 00:00 IMPRESSION: 1. SIGMOID DIVERTICULITIS. WORSENING PELVIC ABSCESS. MULTIPLE LOCULATIONS AND AIR-FLUID LEVELS. THERE IS ALSO A SMALL AMOUNT OF FREE INTRAPERITONEAL AIR CONCERNING FOR PERFORATION. 2. SMALL LOW-ATTENUATION LESIONS IN THE LIVER. THE LESION IN THE LEFT LOBE IS PROBABLY A CYST AND IN THE RIGHT LOBE PROBABLY A HEMANGIOMA. 3. NO OTHER SIGNIFICANT OR ACUTE FINDINGS IN THE ABDOMEN OR PELVIS. Chest X-Ray 03/24/19 20:38 IMPRESSION: 1. Suboptimal left subclavian line placement, extending retrograde in the left internal jugular vein. Consider repositioning. 2. No pneumothorax. Assessment & Plan - Diagnosis (1) Abdominal pain Qualifiers: Abdominal location: left upper quadrant Qualified Code(s): R10.12 - Left upper quadrant pain Is this a current diagnosis for this admission?: Yes (2) Diverticulitis Is this a current diagnosis for this admission?: Yes (3) Hypertension Qualifiers: Hypertension type: essential hypertension Qualified Code(s): I10 - Essential (primary) hypertension Is this a current diagnosis for this admission?: Yes (4) Intra-abdominal abscess Is this a current diagnosis for this admission?: Yes (5) Obesity Qualifiers: Obesity type: unspecified obesity type Body mass index: BMI 32.0-32.9 Is this a current diagnosis for this admission?: Yes - Time Time Spent with patient: 15-24 minutes - Inpatient Certification Medical Necessity: Need For IV Fluids, Need for Pain Control, Need for IV Antibiotics - Plan Summary Plan Summary: This is postop day #2. Post colon resection with colostomy for diverticular abscess Plans: Since colostomy appears to be starting to function, will DC NG tube and DC Jacobson catheter and have the patient ambulate. Her white count is starting to trend down but will need continued IV antibiotics. We will gradually increase her diet.
--- NOTE | 2019-03-26 19:08 | PDOC PROGRESS REPORT ---
Subjective Progress Note for:: 03/26/19 Subjective:: Patient states that her pain is improved in her abdomen. Rates it as a 4 out of 10. Denies any nausea vomiting. No significant tenderness around the colostomy site. Reason For Visit: ABDOMINAL PAIN, LEUKOCYTOSIS,HYPERTENSION,LUMBAR Physical Exam Vital Signs: Temp Pulse Resp BP Pulse Ox 97.6 F 93 18 130/69 H 97 03/26/19 16:00 03/26/19 16:00 03/26/19 16:00 03/26/19 16:00 03/26/19 16:00 Intake & Output 03/25/19 03/26/19 03/27/19 06:59 06:59 06:59 Intake Total 07099 3660 1300 Output Total 7635 1200 Balance 2464 2460 1300 Weight 84.8 kg 80.1 kg General appearance: PRESENT: no acute distress, cooperative Head exam: PRESENT: atraumatic, normocephalic Eye exam: PRESENT: conjunctiva pink Mouth exam: PRESENT: moist Neck exam: ABSENT: JVD, tracheal deviation Respiratory exam: PRESENT: clear to auscultation telly Cardiovascular exam: PRESENT: RRR, +S1 Vascular exam: ABSENT: pallor GI/Abdominal exam: PRESENT: normal bowel sounds, soft, tenderness - mild tender around colostomy and in lower abdomen, other - Colostomy present and functional. Rectal exam: PRESENT: deferred Extremities exam: ABSENT: joint swelling Neurological exam: PRESENT: alert, awake, oriented to person, oriented to place, oriented to time, oriented to situation Psychiatric exam: PRESENT: appropriate affect. ABSENT: agitated Results Laboratory Results: 03/26/19 06:11 03/26/19 06:11 03/26/19 03/26/19 06:11 06:11 WBC 21.7 H RBC 3.45 L Hgb 10.2 L Hct 30.4 L MCV 88 MCH 29.5 MCHC 33.5 RDW 14.9 H Plt Count 486 H Seg Neutrophils % Not Reportable Sodium 142.6 Potassium 3.9 Chloride 108 H Carbon Dioxide 27 Anion Gap 8 BUN 18 Creatinine 0.57 Est GFR ( Amer) > 60 Glucose 90 Calcium 8.3 L Impressions: Acute Abdomen Series 03/21/19 12:29 IMPRESSION: Mild constipation. Abdomen/Pelvis CT 03/24/19 00:00 IMPRESSION: 1. SIGMOID DIVERTICULITIS. WORSENING PELVIC ABSCESS. MULTIPLE LOCULATIONS AND AIR-FLUID LEVELS. THERE IS ALSO A SMALL AMOUNT OF FREE INTRAPERITONEAL AIR CONCERNING FOR PERFORATION. 2. SMALL LOW-ATTENUATION LESIONS IN THE LIVER. THE LESION IN THE LEFT LOBE IS PROBABLY A CYST AND IN THE RIGHT LOBE PROBABLY A HEMANGIOMA. 3. NO OTHER SIGNIFICANT OR ACUTE FINDINGS IN THE ABDOMEN OR PELVIS. Chest X-Ray 03/24/19 20:38 IMPRESSION: 1. Suboptimal left subclavian line placement, extending retrograde in the left internal jugular vein. Consider repositioning. 2. No pneumothorax. Assessment and Plan - Diagnosis (1) Diverticulitis of intestine with abscess Is this a current diagnosis for this admission?: Yes Plan: Patient is status post partial colon resection with colostomy placement. Colostomy appears to be working. NG tube discontinued. Surgery following. Will continue with pain control and IV antibiotics with ciprofloxacin and Flagyl. Blood cultures negative. PT OT. (2) Hypertension Qualifiers: Hypertension type: essential hypertension Qualified Code(s): I10 - Essential (primary) hypertension Is this a current diagnosis for this admission?: Yes Plan: Continue current regimen. Stable. - Plan Summary Summary: 03/21/2019 Patient has been seen in consultation and examined by general surgery, Dr. Roberto, who feels like the patient should be kept n.p.o., IV fluids, IV antibiotics, and reevaluated in the morning.. He feels like it would be best to possibly drain the abscess with CT guided drainage, and reevaluate the patient afterwards. Patient was informed however that plans could change based on her clinical condition. She has a significant drug allergy to the penicillins will be placed on IV Flagyl and IV ciprofloxacin. Currently patient is up and ambulatory to the bathroom and in no acute distress. Patient had all of her questions answered satisfied with the plan. 03/22/2019 This morning early temperature was 98.4 around noon it is gone up to 99.3. High as it got up to yesterday was 100.1 which was 93 this morning blood pressure. O2 sat between 9496% on room air no respiratory distress Count down slightly 21.2. Amylase and lipase normal, magnesium normal, electrolytes grossly normal We will continue to monitor with IV antibiotics, serial labs, patient's clinical presentation. She is aware of the plan. Currently the patient is hemody namically stable 03/23/2019 Due to the white count going up we probably will discuss with general surgery the option of surgery, tomorrow, or sooner if necessary. We will repeat cbc in the morning continue close monitor. I put her fluids back today to KVO and gave her 40 of Lasix for some wheezing however patient was not really any more symptomatic than that Patient is still passing flatus, still has bowel sounds, still n.p.o.. Patient agrees with the plan I have talked to general surgery today. 03/24/2019 She seems to be making any progress at this time. No surgery has seen the patient would like her to undergo a CT-guided percutaneous drainage of the abscess. Spent a great deal of time talking to the patient and especially her daughter about the different options. Patient's fluids have been cut back to KVO, 30 mL's per hour. Patient's renal functions will be monitored. Continue IV Cipro and Flagyl for now 03/25/2019 Patient's vital signs are stable. White count today is 23,300 which is an improvement from yesterday, actually considering the amount of surgery she had yesterday is acceptable. H&H is unchanged from yesterday, electrolytes are grossly normal. Patient is hallucinating on morphine and will change her to a low dose of Dilaudid to see if there is any difference. Complaining of a mild sore throat probably secondary to intubation, will add Chloraseptic spray as needed. Patient and family members team satisfied with patient's condition today. Patient's daughter did vent her frustration with postop nursing care. She has been referred to patient service navigator. 03/26/2019 Colostomy working. NG tube discontinued. Continue IV antibiotics. Surgery following. - Time Time Spent with patient: 25-34 minutes
[2019-03-27] MEDS ORDERED: ACETAMINOPHEN 1,000 MG/100 ML RTUPB IV ONE (03:00)
[2019-03-27] MEDS: POTASSIUM CHLORIDE 10 MEQ CAPSULE.ER PO SCH ×2 (06:15→17:44)
[2019-03-27] MEDS: KETOROLAC TROMETHAMINE INJ/PF 30 MG/1 ML SDV IV SCH ×3 (06:16→17:44)
[2019-03-27] MEDS: RINGERS SOLUTION,LACTATED 1,000 ML IV PRN (06:16)
[2019-03-27] MEDS: ALBUTEROL SULFATE 0.083% NEB 2.5 MG/3 ML AMPUL NEB SCH ×2 (08:02→19:57)
[2019-03-27] MEDS ORDERED: ACETAMINOPHEN 1,000 MG/100 ML RTUPB IV SCH (10:00)
[2019-03-27] MEDS: CIPROFLOXACIN 400 MG/D5W RTU 400 MG/200 ML RTUPB IV SCH ×2 (10:10→23:17)
[2019-03-27] MEDS: FAMOTIDINE INJ/PF 20 MG/2 ML SDV IV SCH ×2 (10:10→23:16)
[2019-03-27] MEDS: METRONIDAZOLE 500 MG/NS RTU 500 MG/100 ML RTUPB IV SCH (11:40)
--- NOTE | 2019-03-27 14:07 | PDOC PROGRESS REPORT ---
Subjective Progress Note for:: 03/27/19 Subjective:: Patient feels a lot better today. She is able to ambulate freely. States that pain score is now a 2 out of 10. Nausea vomiting fever or chills. Denies any drainage from surgical site. Reason For Visit: ABDOMINAL PAIN, LEUKOCYTOSIS,HYPERTENSION,LUMBAR Physical Exam Vital Signs: Temp Pulse Resp BP Pulse Ox 97.6 F 91 16 140/90 H 96 03/27/19 11:37 03/27/19 11:37 03/27/19 11:37 03/27/19 11:37 03/27/19 11:37 Intake & Output 03/26/19 03/27/19 03/28/19 06:59 06:59 06:59 Intake Total 3660 4174 300 Output Total 1200 85 20 Balance 2460 4089 280 Weight 80.1 kg 80.1 kg General appearance: PRESENT: no acute distress, cooperative Head exam: PRESENT: atraumatic Eye exam: PRESENT: EOMI Mouth exam: PRESENT: moist Throat exam: ABSENT: tonsillogmegaly Neck exam: PRESENT: JVD Respiratory exam: PRESENT: clear to auscultation telly Cardiovascular exam: PRESENT: RRR Vascular exam: ABSENT: pallor GI/Abdominal exam: PRESENT: normal bowel sounds, soft, tenderness, other - Drains at surgical site with mild surrounding tenderness and no purulent purulence. Rectal exam: PRESENT: deferred Gentrourinary exam: ABSENT: ecchymosis Extremities exam: ABSENT: calf tenderness Musculoskeletal exam: PRESENT: ambulatory Neurological exam: PRESENT: alert, awake, oriented to person, oriented to time, oriented to situation Psychiatric exam: PRESENT: normal mood. ABSENT: anxious Results Laboratory Results: 03/26/19 06:11 03/26/19 06:11 03/21/19 22:27 Blood Blood Culture - Final NO GROWTH IN 5 DAYS 03/21/19 19:55 Blood Blood Culture - Final NO GROWTH IN 5 DAYS Impressions: Acute Abdomen Series 03/21/19 12:29 IMPRESSION: Mild constipation. Abdomen/Pelvis CT 03/24/19 00:00 IMPRESSION: 1. SIGMOID DIVERTICULITIS. WORSENING PELVIC ABSCESS. MULTIPLE LOCULATIONS AND AIR-FLUID LEVELS. THERE IS ALSO A SMALL AMOUNT OF FREE INTRAPERITONEAL AIR CONCERNING FOR PERFORATION. 2. SMALL LOW-ATTENUATION LESIONS IN THE LIVER. THE LESION IN THE LEFT LOBE IS PROBABLY A CYST AND IN THE RIGHT LOBE PROBABLY A HEMANGIOMA. 3. NO OTHER SIGNIFICANT OR ACUTE FINDINGS IN THE ABDOMEN OR PELVIS. Chest X-Ray 03/24/19 20:38 IMPRESSION: 1. Suboptimal left subclavian line placement, extending retrograde in the left internal jugular vein. Consider repositioning. 2. No pneumothorax. Assessment and Plan - Diagnosis (1) Diverticulitis of intestine with abscess Is this a current diagnosis for this admission?: Yes Plan: Patient is status post partial colon resection with colostomy placement. Colostomy working. Surgery following. Will continue with pain control and IV antibiotics with ciprofloxacin and Flagyl. Blood cultures negative. PT OT. (2) Hypertension Qualifiers: Hypertension type: essential hypertension Qualified Code(s): I10 - Essential (primary) hypertension Is this a current diagnosis for this admission?: Yes Plan: Continue current regimen. Stable. - Plan Summary Summary: 03/21/2019 Patient has been seen in consultation and examined by general surgery, Dr. Roberto, who feels like the patient should be kept n.p.o., IV fluids, IV antibiotics, and reevaluated in the morning.. He feels like it would be best to possibly drain the abscess with CT guided drainage, and reevaluate the patient afterwards. Patient was informed however that plans could change based on her clinical condition. She has a significant drug allergy to the penicillins will be placed on IV F lagyl and IV ciprofloxacin. Currently patient is up and ambulatory to the bathroom and in no acute distress. Patient had all of her questions answered satisfied with the plan. 03/22/2019 This morning early temperature was 98.4 around noon it is gone up to 99.3. High as it got up to yesterday was 100.1 which was 93 this morning blood pressure. O2 sat between 9496% on room air no respiratory distress Count down slightly 21.2. Amylase and lipase normal, magnesium normal, electrolytes grossly normal We will continue to monitor with IV antibiotics, serial labs, patient's clinical presentation. She is aware of the plan. Currently the patient is hemodynamically stable 03/23/2019 Due to the white count going up we probably will discuss with general surgery the option of surgery, tomorrow, or sooner if necessary. We will repeat cbc in the morning continue close monitor. I put her fluids back today to KVO and gave her 40 of Lasix for some wheezing however patient was not really any more symptomatic than that Patient is still passing flatus, still has bowel sounds, still n.p.o.. Patient agrees with the plan I have talked to general surgery today. 03/24/2019 She seems to be making any progress at this time. No surgery has seen the patient would like her to undergo a CT-guided percutaneous drainage of the abscess. Spent a great deal of time talking to the patient and especially her daughter about the different options. Patient's fluids have been cut back to KVO, 30 mL's per hour. Patient's renal functions will be monitored. Continue IV Cipro and Flagyl for now 03/25/2019 Patient's vital signs are stable. White count today is 23,300 which is an improvement from yesterday, actually considering the amount of surgery she had yesterday is acceptable. H&H is unchanged from yesterday, electrolytes are grossly normal. Patient is hallucinating on morphine and will change her to a low dose of Dilaudid to see if there is any difference. Complaining of a mild sore throat probably secondary to intubation, will add Chloraseptic spray as needed. Patient and family members team satisfied with patient's condition today. Patient's daughter did vent her frustration with postop nursing care. She has been referred to patient service navigator. 03/26/2019 Colostomy working. NG tube discontinued. Continue IV antibiotics. Surgery following. 03/27/2019 We will transfer patient to surgicalist service. Discussed this with Dr. Browning who has accepted patient onto his service. - Time Time Spent with patient: 15-24 minutes
--- NOTE | 2019-03-27 19:46 | PDOC PROGRESS REPORT ---
Subjective Progress Note for:: 03/27/19 Reason For Visit: ABDOMINAL PAIN, LEUKOCYTOSIS,HYPERTENSION,LUMBAR Physical Exam Vital Signs: Temp Pulse Resp BP Pulse Ox 98 F 94 16 156/80 H 96 03/27/19 16:04 03/27/19 16:04 03/27/19 16:04 03/27/19 16:04 03/27/19 16:04 Intake & Output 03/26/19 03/27/19 03/28/19 06:59 06:59 06:59 Intake Total 3660 4174 1138 Output Total 1200 85 20 Balance 2460 4089 1118 Weight 80.1 kg 80.1 kg Results Laboratory Results: 03/26/19 06:11 03/26/19 06:11 03/21/19 22:27 Blood Blood Culture - Final NO GROWTH IN 5 DAYS 03/21/19 19:55 Blood Blood Culture - Final NO GROWTH IN 5 DAYS Impressions: Acute Abdomen Series 03/21/19 12:29 IMPRESSION: Mild constipation. Abdomen/Pelvis CT 03/24/19 00:00 IMPRESSION: 1. SIGMOID DIVERTICULITIS. WORSENING PELVIC ABSCESS. MULTIPLE LOCULATIONS AND AIR-FLUID LEVELS. THERE IS ALSO A SMALL AMOUNT OF FREE INTRAPERITONEAL AIR CONCERNING FOR PERFORATION. 2. SMALL LOW-ATTENUATION LESIONS IN THE LIVER. THE LESION IN THE LEFT LOBE IS PROBABLY A CYST AND IN THE RIGHT LOBE PROBABLY A HEMANGIOMA. 3. NO OTHER SIGNIFICANT OR ACUTE FINDINGS IN THE ABDOMEN OR PELVIS. Chest X-Ray 03/24/19 20:38 IMPRESSION: 1. Suboptimal left subclavian line placement, extending retrograde in the left internal jugular vein. Consider repositioning. 2. No pneumothorax. Assessment & Plan - Diagnosis (1) Diverticulitis of intestine with abscess Qualifiers: Diverticulitis site: large intestine Is this a current diagnosis for this admission?: Yes (2) Intra-abdominal abscess Is this a current diagnosis for this admission?: Yes - Time Time Spent with patient: Less than 15 minutes - Plan Summary Plan Summary: This is a 73-year-old female with severe, complicated diverticulitis with pelvic abscess. The patient is status post exploratory laparotomy with drainage of intra-abdominal abscess and left lower quadrant end colostomy. The patient is doing well today. She has been tolerating liquids. Her colostomy is productive of air and stool. Her midline incision is clean, without signs of infection. Dry dressing to midline wound daily. Okay to shower. Advance to regular diet. After discussing the long-term plan with the patient, she has requested that I take her onto my service. I will transfer the patient to my personal service.
[2019-03-27] MEDS: HYDROCODONE/ACETAMINOPHEN 5-325 MG TABLET PO PRN (22:48)
[2019-03-28] MEDS: KETOROLAC TROMETHAMINE INJ/PF 30 MG/1 ML SDV IV SCH ×2 (00:15→05:19)
[2019-03-28] MEDS: METRONIDAZOLE 500 MG/NS RTU 500 MG/100 ML RTUPB IV SCH ×2 (00:16→10:33)
[2019-03-28] MEDS: HYDROCODONE/ACETAMINOPHEN 5-325 MG TABLET PO PRN ×2 (03:39→10:47)
[2019-03-28 04:50] LABS: HEMATOCRIT 31.6 % (36.0-47.0); HEMOGLOBIN 10.4 g/dL (12.0-15.5); MEAN CORPUSCULAR HEMOGLOBIN 29.1 pg (27.0-33.4); MEAN CORPUSCULAR HGB CONC 32.8 g/dL (32.0-36.0); MEAN CORPUSCULAR VOLUME 89 fl (80-97); PLATELET COUNT 538 10^3/uL (150-450); RED BLOOD COUNT 3.57 10^6/uL (3.72-5.28); RED CELL DISTRIBUTION WIDTH 14.7 % (11.5-14.0); WHITE BLOOD COUNT 13.9 10^3/uL (4.0-10.5)
[2019-03-28 05:08] LABS: ANION GAP 7 (5-19); BLOOD UREA NITROGEN 6 mg/dL (7-20); CALCIUM 8.4 mg/dL (8.4-10.2); CARBON DIOXIDE 26 mmol/L (22-30); CHLORIDE 110 mmol/L (98-107); GLUCOSE 95 mg/dL (75-110); POTASSIUM 4.4 mmol/L (3.6-5.0)
[2019-03-28 05:16] LABS: ABSOLUTE LYMPHOCYTES# (MANUAL) 1.1 10^3/uL (0.5-4.7); ABSOLUTE MONOCYTES # (MANUAL) 0.8 10^3/uL (0.1-1.4); ANISOCYTOSIS SLIGHT; BAND NEUTROPHILS % (MANUAL) 2 % (3-5); BASOPHILS % (MANUAL) 0 % (0-2); EOSINOPHILS % (MANUAL) 1 % (0-6); HYPOCHROMASIA 1+; LYMPHOCYTES % (MANUAL) 8 % (13-45); MONOCYTES % (MANUAL) 6 % (3-13); PLATELET COMMENT INCREASED; SEGMENTED NEUTROPHILS % (MAN) 83 % (42-78); TOTAL CELLS COUNTED 100
[2019-03-28] MEDS: ALBUTEROL SULFATE 0.083% NEB 2.5 MG/3 ML AMPUL NEB SCH (07:49)
[2019-03-28] MEDS: CIPROFLOXACIN 400 MG/D5W RTU 400 MG/200 ML RTUPB IV SCH (09:04)
[2019-03-28] MEDS: FAMOTIDINE INJ/PF 20 MG/2 ML SDV IV SCH (09:04)
[2019-03-28 11:29] VITALS: BP 92/62
--- NOTE | 2019-04-09 13:48 | PDOC DISCHARGE SUMMARY ---
General - Admit/Disc Date/PCP Admission Date/Primary Care Provider: 03/21/19 18:41 GOMEZ HALE PA-C Discharge Date: 03/28/19 - Discharge Diagnosis Final Diagnosis: perforated diverticulitis, sepsis. - Assessment Summary: This is a 73-year-old female admitted with diverticulitis. She underwent conservative therapy with intravenous antibiotics, however her diverticulitis continued to worsen. The patient eventually required surgical intervention in the form of a [facility]'s procedure. After surgery, she was transferred to the floor. The patient did well after surgery. Her colostomy began functioning. Her midline wound appeared to be healing. She began tolerating a diet. By 03/28/2019, the patient was ambulating in the halls, afebrile, well-controlled on oral pain medications, was showering, was tolerating a regular diet, and was requesting discharge. I believe the patient is at this time fit for discharge. - Additional Information Resuscitation Status: Full Code Discharge Diet: As Tolerated Discharge Activity: No Lifting Over 10 Pounds, No Lifting/Push/Pulling Referrals: JOAN SEAY MD [ACTIVE STAFF] - 04/04/19 8:15 am Home Medications: Hydrochlorothiazide 25 mg PO QAM 04/08/13 Atorvastatin Calcium [Lipitor 20 mg Tablet] 20 mg PO QHS 03/21/19 Escitalopram Oxalate [Lexapro 10 mg Tablet] 10 mg PO DAILY 03/21/19 Gabapentin [Neurontin 300 mg Capsule] 600 mg PO QHS 03/21/19 Meloxicam [Mobic 15 mg Tablet] 15 mg PO DAILY 03/21/19 Metformin HCl [Metformin HCl ER] 1,000 mg PO DAILY 03/21/19 Nitrofurantoin Macrocrystal [Nitrofurantoin] 50 mg PO DAILY 03/21/19 Rabeprazole Sodium [Aciphex Sprinkle] 10 mg PO DAILY 03/21/19 Additional Information: Discharge home. Diet as tolerated. Activity: No lifting greater than 10 pounds x 6 weeks after surgery. Follow-up with me in 7 to 10 days at [facility]. Record PEPITO output daily. History of Present Illiness History of Present Illness: MAGDALENE SIMMS is a 73 year old female Physical Exam Vital Signs: Temp Pulse Resp BP Pulse Ox 98 F 85 16 92/62 L 95 03/28/19 11:14 03/28/19 11:14 03/28/19 11:14 03/28/19 11:14 03/28/19 11:14 Results Laboratory Results: WBC 13.9 10^3/uL (4.0-10.5) H 03/28/19 04:01 RBC 3.57 10^6/uL (3.72-5.28) L 03/28/19 04:01 Hgb 10.4 g/dL (12.0-15.5) L 03/28/19 04:01 Hct 31.6 % (36.0-47.0) L 03/28/19 04:01 MCV 89 fl (80-97) 03/28/19 04:01 MCH 29.1 pg (27.0-33.4) 03/28/19 04:01 MCHC 32.8 g/dL (32.0-36.0) 03/28/19 04:01 RDW 14.7 % (11.5-14.0) H 03/28/19 04:01 Plt Count 538 10^3/uL (150-450) H 03/28/19 04:01 Lymph % (Auto) Not Reportable 03/28/19 04:01 [place] % (Auto) Not Reportable 03/28/19 04:01 Eos % (Auto) Not Reportable 03/28/19 04:01 Baso % (Auto) Not Reportable 03/28/19 04:01 Absolute Neuts (auto) Not Reportable 03/28/19 04:01 Absolute Lymphs (auto) Not Reportable 03/28/19 04:01 Absolute Monos (auto) Not Reportable 03/28/19 04:01 Absolute Eos (auto) Not Reportable 03/28/19 04:01 Absolute Basos (auto) Not Reportable 03/28/19 04:01 Total Counted 100 03/28/19 04:01 Seg Neutrophils % Not Reportable 03/28/19 04:01 Seg Neuts % (Manual) 83 % (42-78) H 03/28/19 04:01 Band Neutrophils % 2 % (3-5) L 03/28/19 04:01 Lymphocytes % (Manual) 8 % (13-45) L 03/28/19 04:01 Atypical Lymphs % 1 % (0) 03/25/19 08:07 Monocytes % (Manual) 6 % (3-13) 03/28/19 04:01 Eosinophils % (Manual) 1 % (0-6) 03/28/19 04:01 Basophils % (Manual) 0 % (0-2) 03/28/19 04:01 Abs Neuts (Manual) 11.8 10^3/uL (1.7-8.2) H 03/28/19 04:01 Abs Lymphs (Manual) 1.1 10^3/uL (0.5-4.7) 03/28/19 04:01 Abs Monocytes (Manual) 0.8 10^3/uL (0.1-1.4) 03/28/19 04:01 Absolute Eos (Manual) 0.1 10^3/uL (0.0-0.6) 03/28/19 04:01 Abs Basophils (Manual) 0.0 10^3/uL (0.0-0.2) 03/28/19 04:01 Toxic Vacuolation PRESENT 03/25/19 08:07 Platelet Comment INCREASED 03/28/19 04:01 Polychromasia SLIGHT 03/25/19 08:07 Hypochromasia 1+ 03/28/19 04:01 Anisocytosis SLIGHT 03/28/19 04:01 Tear Drop Cells SLIGHT 03/21/19 12:55 Ovalocytes 1+ 03/26/19 06:11 PT 15.2 SEC (11.4-15.4) 03/21/19 12:55 INR 1.19 03/21/19 12:55 APTT 30.7 SEC (23.5-35.8) 03/22/19 03:37 Sodium 143.0 mmol/L (137-145) 03/28/19 04:01 Potassium 4.4 mmol/L (3.6-5.0) 03/28/19 04:01 Chloride 110 mmol/L (98-107) H 03/28/19 04:01 Carbon Dioxide 26 mmol/L (22-30) 03/28/19 04:01 Anion Gap 7 (5-19) 03/28/19 04:01 BUN 6 mg/dL (7-20) L 03/28/19 04:01 Creatinine 0.52 mg/dL (0.52-1.25) 03/28/19 04:01 Est GFR ( Amer) > 60 (>60) 03/28/19 04:01 Est GFR (MDRD) Non-Af > 60 (>60) 03/28/19 04:01 Glucose 95 mg/dL (75-110) 03/28/19 04:01 POC Glucose 104 mg/dL (70-110) 03/28/19 06:03 Calcium 8.4 mg/dL (8.4-10.2) 03/28/19 04:01 Magnesium 2.0 mg/dL (1.6-2.3) 03/22/19 03:37 Total Bilirubin 1.0 mg/dL (0.2-1.3) 03/23/19 04:53 Direct Bilirubin 0.6 mg/dL (0.0-0.4) H 03/23/19 04:53 Neonat Total Bilirubin Not Reportable 03/23/19 04:53 Neonat Direct Bilirubin Not Reportable 03/23/19 04:53 Neonat Indirect Bili Not Reportable 03/23/19 04:53 AST 28 U/L (14-36) 03/23/19 04:53 ALT 20 U/L (<35) 03/23/19 04:53 Alkaline Phosphatase 101 U/L (38-126) 03/23/19 04:53 Total Protein 5.1 g/dL (6.3-8.2) L 03/23/19 04:53 Albumin 2.5 g/dL (3.5-5.0) L 03/23/19 04:53 Amylase 36 U/L (30-110) 03/21/19 12:55 Lipase 34.2 U/L (23-300) 03/21/19 12:55 Urine Color YELLOW 03/21/19 12:55 Urine Appearance SLIGHTLY-CLOUDY 03/21/19 12:55 Urine pH 5.0 (5.0-9.0) 03/21/19 12:55 Ur Specific [place] 1.029 03/21/19 12:55 Urine Protein 100 mg/dL (NEGATIVE) H 03/21/19 12:55 Urine Glucose (UA) NEGATIVE mg/dL (NEGATIVE) 03/21/19 12:55 Urine Ketones 20 mg/dL (NEGATIVE) H 03/21/19 12:55 Urine Blood SMALL (NEGATIVE) H 03/21/19 12:55 Urine Nitrite NEGATIVE (NEGATIVE) 03/21/19 12:55 Urine Bilirubin NEGATIVE (NEGATIVE) 03/21/19 12:55 Urine Urobilinogen 2.0 mg/dL (<2.0) H 03/21/19 12:55 Ur Leukocyte Esterase NEGATIVE (NEGATIVE) 03/21/19 12:55 Urine WBC (Auto) 1 /HPF 03/21/19 12:55 Urine RBC (Auto) 7 /HPF 03/21/19 12:55 Squamous Epi Cells Auto <1 /HPF 03/21/19 12:55 Urine Mucus (Auto) MANY /LPF 03/21/19 12:55 Urine Ascorbic Acid NEGATIVE (NEGATIVE) 03/21/19 12:55 Blood Type O POSITIVE 03/24/19 19:38 Antibody Screen NEGATIVE 03/24/19 19:38 Impressions: Acute Abdomen Series 03/21/19 12:29 IMPRESSION: Mild constipation. Abdomen/Pelvis CT 03/21/19 14:32 IMPRESSION: There is a multiloculated air and fluid collection in the right lower abdomen and pelvis measuring approximately 7.9 x 6.9 x 5.1 cm (series 3, image 61, series 601, image 37). This is favored to represent an abscess, of uncertain origin although appendiceal abscess is favored. There is a severe adjacent sigmoid diverticulosis and fat stranding; diverticular abscess is a differential consideration. Less favored considerations include right ovarian mass. It is unclear whether small bowel may be included within this multiloculated collection or communicate with this collection; consider repeat CT examination with the administration of oral contrast to exclude small bowel loops or fistula. Abdomen/Pelvis CT 03/21/19 15:57 IMPRESSION: Right side pelvic abscess: Diverticulitis versus appendiceal abscess. Abdomen/Pelvis CT 03/24/19 00:00 IMPRESSION: 1. SIGMOID DIVERTICULITIS. WORSENING PELVIC ABSCESS. MULTIPLE LOCULATIONS AND AIR-FLUID LEVELS. THERE IS ALSO A SMALL AMOUNT OF FREE INTRAPERITONEAL AIR CONCERNING FOR PERFORATION. 2. SMALL LOW-ATTENUATION LESIONS IN THE LIVER. THE LESION IN THE LEFT LOBE IS PROBABLY A CYST AND IN THE RIGHT LOBE PROBABLY A HEMANGIOMA. 3. NO OTHER SIGNIFICANT OR ACUTE FINDINGS IN THE ABDOMEN OR PELVIS. Chest X-Ray 03/24/19 20:38 IMPRESSION: 1. Suboptimal left subclavian line placement, extending retrograde in the left internal jugular vein. Consider repositioning. 2. No pneumothorax.
== END 2019-03-28 12:47 | disposition home health service (06) | DRG 853 ==
LOC: ER 11:33 → EH 18:41 → 4N 22:45
PROVIDERS: ADMIT Surgery; ATTEND Surgery
PROC: 0D1M0Z4 Bypass Descending Colon to Cutaneous, Open Approach (ICD-10-PCS; 2019-03-24)
PROC: 0JB80ZZ Excision of Abdomen Subcutaneous Tissue and Fascia, Open Approach (ICD-10-PCS; 2019-03-24)
PROC: 02HV33Z Insertion of Infusion Device into Superior Vena Cava, Percutaneous Approach (ICD-10-PCS; 2019-03-24)
PROC: 0DTN0ZZ Resection of Sigmoid Colon, Open Approach (ICD-10-PCS; principal; 2019-03-24 17:30)
DX: A41.9 Sepsis, unspecified organism (principal); K65.1 Peritoneal abscess; K57.20 Diverticulitis of large intestine with perforation and abscess without bleeding; I10 Essential (primary) hypertension; K59.00 Constipation, unspecified; E66.9 Obesity, unspecified; Z68.32 Body mass index [BMI] 32.0-32.9, adult; Z86.010 Personal history of colon polyps; Z88.0 Allergy status to penicillin; Z79.899 Other long term (current) drug therapy; Z79.84 Long term (current) use of oral hypoglycemic drugs
CPT/HCPCS: 00790; 36415; 71045; 74022; 74176; 74177; 80048; 80053; 81001; 82150; 82962; 83690; 83735; 85025; 85610; 85730; 86850; 86900; 86901; 87040; 88307; 93005; 93010; 94640; 94799; 96365; 96366; 96367; 96375; 96376; 99285; C9290; J0131; J0744; J1100; J1170; J1642; J1885; J1940; J1956; J2250; J2270; J2370; J2405; J2550; J2704; J2710; J2765; J3010; J3490; J7030; J7120; S0028

== ENCOUNTER → 2019-06-24 | Outpatient (CLI) | payer MEDICARE, OTHER ==
[2019-06-24 11:01] LABS: HEMOGLOBIN 13.1 g/dL (12.0-15.5); MEAN CORPUSCULAR HEMOGLOBIN 30.1 pg (27.0-33.4); MEAN CORPUSCULAR HGB CONC 33.6 g/dL (32.0-36.0); MEAN CORPUSCULAR VOLUME 89 fl (80-97); PLATELET COUNT 295 10^3/uL (150-450); RED BLOOD COUNT 4.37 10^6/uL (3.72-5.28); RED CELL DISTRIBUTION WIDTH 14.6 % (11.5-14.0); WHITE BLOOD COUNT 8.1 10^3/uL (4.0-10.5)
[2019-06-24 11:34] LABS: ANION GAP 8 (5-19); BLOOD UREA NITROGEN 25 mg/dL (7-20); CARBON DIOXIDE 31 mmol/L (22-30); CHLORIDE 101 mmol/L (98-107); GLUCOSE 78 mg/dL (75-110); POTASSIUM 4.2 mmol/L (3.6-5.0)
--- NOTE | 2019-06-24 13:08 | EKG REPORT ---
SEVERITY:- ABNORMAL ECG - SINUS RHYTHM LEFT ANTERIOR FASCICULAR BLOCK BORDERLINE T ABNORMALITIES, ANTERIOR LEADS : Confirmed by: Mark Kelley MD 24-Jun-2019 13:08:04
--- NOTE | 2019-06-24 14:24 | RADIOLOGY REPORT (SQ) ---
EXAM DESCRIPTION: CHEST PA/LATERAL COMPLETED DATE/TIME: 06/24/2019 10:20 am REASON FOR STUDY: PRE-OP COMPARISON: 03/24/2019 EXAM PARAMETERS: NUMBER OF VIEWS: two views TECHNIQUE: Digital Frontal and Lateral radiographic views of the chest acquired. RADIATION DOSE: NA LIMITATIONS: none FINDINGS: LUNGS AND PLEURA: No opacities, masses or pneumothorax. No pleural effusion. MEDIASTINUM AND HILAR STRUCTURES: No masses or contour abnormalities. HEART AND VASCULAR STRUCTURES: Heart normal size. No evidence for failure. BONES: No acute findings. HARDWARE: None in the chest. OTHER: No other significant finding. IMPRESSION: NO SIGNIFICANT RADIOGRAPHIC FINDING IN THE CHEST. TECHNICAL DOCUMENTATION: JOB ID: [id number] [employer]- All Rights Reserved Reading location - IP/workstation name: [email or web address]
== END ==
LOC: OD 09:35
PROVIDERS: ATTEND Surgery
DX: Z01.810 Encounter for preprocedural cardiovascular examination (principal); Z01.812 Encounter for preprocedural laboratory examination; Z01.818 Encounter for other preprocedural examination; R05 Cough
CPT/HCPCS: 36415; 71046; 80048; 85027; 93005; 93010

== ENCOUNTER 2019-07-11 07:37 | Day surgery (SDC) | payer MEDICARE, OTHER ==
[~2019-07-11 07:37] MED LIST: PROPOFOL INJ 200 MG/20 ML VIAL IV ONE
--- NOTE | 2019-07-11 10:20 | Operative Report ---
Nonrecallable Operative Report DATE OF SURGERY: 07/11/19 PREOPERATIVE DIAGNOSIS: Unwanted colostomy, history of colon polyps. POSTOPERATIVE DIAGNOSIS: 1. Same as above. 2. Normal colon. OPERATION: Colonoscopy through the left lower quadrant colostomy, as well as rectum. SURGEON: JOAN SEAY ANESTHESIA: LMAC TISSUE REMOVED OR ALTERED: None COMPLICATIONS: None apparent ESTIMATED BLOOD LOSS: Minimal PROCEDURE: Procedure in detail: After informed consent was obtained, the patient was brought to the operating room and laid in the supine position. The colostomy bag was removed, the colonoscope was then inserted into the left lower quadrant colostomy. The scope was pushed up the sigmoid colon, descending colon, across the transverse colon, down the ascending colon, and into the cecum. The ileocecal valve and appendiceal orifice were identified. The scope was then withdrawn, circumferentially noting the mucosa. The prep was good. The scope was withdrawn past the ascending colon, transverse colon, descending colon, and to the sigmoid colon. Throughout the visualized colon, there were no signs of polyps, masses, lesions, ulcerations, or diverticula. The scope was then removed from the colostomy. Attention was then turned to visualization of the rectum. The colonoscope was inserted into the rectum. There is a large amount of mucus within the rectum. The rectum was copiously irrigated. The mucosa of the rectum appeared normal. There is no sign of mass, lesion, ulceration, or other abnormality. Once this was confirmed, the scope was removed, and the procedure was concluded. All sponge, instrument, and needle counts were correct. Condition: Stable.
--- NOTE | 2019-07-11 10:22 | Discharge Summary ---
Discharge Summary (SDC) - Discharge Final Diagnosis: Unwanted colostomy. Normal colonic mucosa. Date of Surgery: 07/11/19 Discharge Date: 07/11/19 Condition: Stable Treatment or Instructions: Discharge home. Diet: High-protein, no fiber diet. Activity: Nonstrenuous. Follow-up with me after colostomy reversal surgery. Referrals: RUBA ESCALERA MD [Primary Care Provider] - Discharge Diet: Other (Comments) - High-protein, no fiber. Respiratory Treatments at Home: Deep Breathing/Coughing, Incentive Spirometer Discharge Activity: Balance Activity w/Rest Home Care Assistance: None Needed Report the Following to Your Physician Immediately: Shortness of Breath, Nausea, Vomiting, Increase in Pain, Fever over 101 Degrees, Unusual Bleeding, Redness
[2019-07-11 10:50] VITALS: BP 134/70
== END 2019-07-11 10:47 | disposition home or self-care (01) ==
LOC: END 07:37
PROVIDERS: ATTEND Surgery
DX: Z43.3 Encounter for attention to colostomy (principal); Z87.19 Personal history of other diseases of the digestive system; Z86.010 Personal history of colon polyps; Z88.0 Allergy status to penicillin; I10 Essential (primary) hypertension; E78.00 Pure hypercholesterolemia, unspecified; R73.03 Prediabetes; M19.90 Unspecified osteoarthritis, unspecified site; Z79.84 Long term (current) use of oral hypoglycemic drugs; Z79.899 Other long term (current) drug therapy; Z09 Encounter for follow-up examination after completed treatment for conditions other than malignant neoplasm
CPT/HCPCS: 45378; 00812; J2704; 812

== ENCOUNTER 2019-07-15 09:41 | Inpatient (IN) | payer MEDICARE, OTHER ==
[~2019-07-15 09:41] MED LIST changes: +ACETAMINOPHEN 1,000 MG/100 ML RTUPB IV PRN; +DEXAMETHASONE SOD PHOSPHATE INJ 4 MG/1 ML VIAL ONE; +GLYCOPYRROLATE 1 MG/5 ML VIAL ONE; +IBUPROFEN 800 MG in NORMAL SALINE 250 ML IV PRN; +LACTATED RINGERS 1000 ML IV PRN; +LEVOFLOXACIN 500 MG/D5W RTU 500 MG/100 ML RTUPB IV PRN; +LIDOCAINE 0.5% INJ-PF (5 MG/ML) 50 ML SDV SUBCUT PRN; +METRONIDAZOLE 500 MG/NS RTU 500 MG/100 ML RTUPB IV PRN; +ONDANSETRON HCL INJ/PF 4 MG/2 ML SDV ONE; -PROPOFOL INJ 200 MG/20 ML VIAL IV ONE; +ROCURONIUM BROMIDE INJ 50 MG/5 ML VIAL IV ONE
[2019-07-15] MEDS ORDERED: ACETAMINOPHEN 1,000 MG/100 ML RTUPB IV ONE ×3 (11:48→19:46)
[2019-07-15] MEDS ORDERED: METRONIDAZOLE 500 MG/NS RTU 500 MG/100 ML RTUPB IV ONE (12:45)
[2019-07-15] MEDS ORDERED: LEVOFLOXACIN 500 MG/D5W RTU 500 MG/100 ML RTUPB IV ONE (12:46)
[2019-07-15] MEDS ORDERED: BUPIVACAINE HCL 0.25 % INJ/PF (2.5 MG/1 ML) 30 ML VIAL ONE (12:59)
[2019-07-15] MEDS ORDERED: FENTANYL CITRATE INJ/PF 100 MCG/2 ML AMPUL ONE ×2 (13:16→14:30)
[2019-07-15] MEDS ORDERED: ONDANSETRON HCL INJ/PF 4 MG/2 ML SDV ONE (13:16)
[2019-07-15] MEDS ORDERED: LIDOCAINE 2% INJ-PF (20 MG/ML) 10 ML AMPUL ONE (13:16)
[2019-07-15] MEDS ORDERED: DEXAMETHASONE SOD PHOSPHATE INJ 4 MG/1 ML VIAL ONE (13:16)
[2019-07-15] MEDS ORDERED: MIDAZOLAM 2 MG/2 ML INJ ONE (13:16)
[2019-07-15] MEDS ORDERED: PROPOFOL INJ 200 MG/20 ML VIAL IV ONE (13:16)
[2019-07-15] MEDS ORDERED: SUGAMMADEX SODIUM 200 MG/2 ML SDV IV ONE (14:30)
[2019-07-15] MEDS ORDERED: MEPERIDINE HCL/PF INJ 25 MG/1 ML DISP.SYRIN IV PRN (15:47)
[2019-07-15] MEDS ORDERED: MORPHINE SULFATE 10 MG/ML INJ IV PRN (15:47)
[2019-07-15] MEDS ORDERED: DIPHENHYDRAMINE HCL 50 MG/ML VIAL IV PRN (15:47)
[2019-07-15] MEDS ORDERED: PROMETHAZINE HCL INJ 25 MG/1 ML VIAL IV PRN ×2 (15:47)
[2019-07-15] MEDS ORDERED: FENTANYL CITRATE INJ/PF 100 MCG/2 ML AMPUL IV PRN ×3 (15:47)
[2019-07-15] MEDS ORDERED: DEXTROSE 5%-LACTATED RINGERS 1,000 ML IV PRN (19:19)
[2019-07-15] MEDS ORDERED: ONDANSETRON HCL INJ/PF 4 MG/2 ML SDV IV PRN (19:26)
[2019-07-15] MEDS ORDERED: DEXTROSE 40% GEL 15 GM TUBE PO PRN ×2 (19:30)
[2019-07-15] MEDS ORDERED: DEXTROSE 50%-WATER 25 GM/50 ML DISP.SYRIN IV PRN ×2 (19:30)
[2019-07-15] MEDS ORDERED: GLUCAGON,HUMAN RECOMB 1 MG INJ IM PRN (19:30)
[2019-07-15] MEDS ORDERED: KETOROLAC TROMETHAMINE INJ/PF 30 MG/1 ML SDV ONE (19:46)
[2019-07-15] MEDS ORDERED: MORPHINE SULFATE 10 MG/ML INJ ONE (19:46)
[2019-07-15] MEDS: MORPHINE SULFATE 10 MG/ML INJ IV PRN (19:58)
[2019-07-15] MEDS: RINGERS SOLUTION,LACTATED 1,000 ML IV PRN (20:01)
[2019-07-15] MEDS: KETOROLAC TROMETHAMINE INJ/PF 30 MG/1 ML SDV IV SCH (20:04)
[2019-07-15] MEDS: ACETAMINOPHEN 1,000 MG/100 ML RTUPB IV SCH (20:04)
[2019-07-15] MEDS: METRONIDAZOLE 500 MG/NS RTU 500 MG/100 ML RTUPB IV SCH (22:56)
[2019-07-15] MEDS: INSULIN LISPRO 100 UNIT/ML 3 ML VIAL SUBCUT SCH (22:56)
[2019-07-15] MEDS: FAMOTIDINE INJ/PF 20 MG/2 ML SDV IV SCH (22:56)
[2019-07-16] MEDS: MORPHINE SULFATE 10 MG/ML INJ IV PRN ×6 (00:32→23:52)
[2019-07-16 04:43] LABS: HEMATOCRIT 35.9 % (36.0-47.0); HEMOGLOBIN 12.1 g/dL (12.0-15.5); MEAN CORPUSCULAR HEMOGLOBIN 29.9 pg (27.0-33.4); MEAN CORPUSCULAR HGB CONC 33.9 g/dL (32.0-36.0); MEAN CORPUSCULAR VOLUME 88 fl (80-97); PLATELET COUNT 258 10^3/uL (150-450); RED BLOOD COUNT 4.06 10^6/uL (3.72-5.28); RED CELL DISTRIBUTION WIDTH 14.5 % (11.5-14.0); WHITE BLOOD COUNT 18.7 10^3/uL (4.0-10.5)
[2019-07-16 05:01] LABS: ANION GAP 7 (5-19); BLOOD UREA NITROGEN 18 mg/dL (7-20); CALCIUM 8.3 mg/dL (8.4-10.2); CARBON DIOXIDE 26 mmol/L (22-30); CHLORIDE 103 mmol/L (98-107); GLUCOSE 136 mg/dL (75-110); POTASSIUM 3.6 mmol/L (3.6-5.0)
[2019-07-16 05:15] LABS: ABSOLUTE LYMPHOCYTES# (MANUAL) 0.9 10^3/uL (0.5-4.7); ABSOLUTE MONOCYTES # (MANUAL) 1.3 10^3/uL (0.1-1.4); BAND NEUTROPHILS % (MANUAL) 10 % (3-5); BASOPHILS % (MANUAL) 0 % (0-2); EOSINOPHILS % (MANUAL) 0 % (0-6); LYMPHOCYTES % (MANUAL) 5 % (13-45); MONOCYTES % (MANUAL) 7 % (3-13); SEGMENTED NEUTROPHILS % (MAN) 78 % (42-78); TOTAL CELLS COUNTED 100
[2019-07-16 05:16] LABS: ANISOCYTOSIS SLIGHT; PLATELET COMMENT ADEQUATE
[2019-07-16] MEDS: ACETAMINOPHEN 1,000 MG/100 ML RTUPB IV SCH ×3 (05:39→22:29)
[2019-07-16] MEDS: KETOROLAC TROMETHAMINE INJ/PF 30 MG/1 ML SDV IV SCH ×3 (05:40→22:28)
[2019-07-16] MEDS: METRONIDAZOLE 500 MG/NS RTU 500 MG/100 ML RTUPB IV SCH (05:41)
[2019-07-16] MEDS: INSULIN LISPRO 100 UNIT/ML 3 ML VIAL SUBCUT SCH ×4 (08:39→22:42)
[2019-07-16] MEDS: FAMOTIDINE INJ/PF 20 MG/2 ML SDV IV SCH ×2 (09:23→22:29)
[2019-07-16] MEDS: ENOXAPARIN SODIUM INJ 40 MG/0.4 ML DISP.SYRIN SUBCUT SCH (09:23)
[2019-07-16] MEDS: RINGERS SOLUTION,LACTATED 1,000 ML IV PRN ×2 (11:27→21:05)
--- NOTE | 2019-07-16 16:43 | PDOC PROGRESS REPORT ---
Subjective Progress Note for:: 07/16/19 Reason For Visit: UNWANTED COLOSTOMY. H/O OF PERFORATED Physical Exam Vital Signs: Temp Pulse Resp BP Pulse Ox 97.0 F 105 H 16 124/76 94 07/16/19 15:34 07/16/19 15:34 07/16/19 15:34 07/16/19 15:34 07/16/19 15:34 Intake & Output 07/15/19 07/16/19 07/17/19 06:59 06:59 06:59 Intake Total 6010 100 Output Total 895 Balance 5115 100 Weight 72.5 kg Results Laboratory Results: 07/16/19 04:02 07/16/19 04:02 07/16/19 07/16/19 04:02 04:02 WBC 18.7 H RBC 4.06 Hgb 12.1 Hct 35.9 L MCV 88 MCH 29.9 MCHC 33.9 RDW 14.5 H Plt Count 258 Seg Neutrophils % Not Reportable Sodium 136.4 L Potassium 3.6 Chloride 103 Carbon Dioxide 26 Anion Gap 7 BUN 18 Creatinine 0.60 Est GFR ( Amer) > 60 Glucose 136 H Calcium 8.3 L Assessment & Plan - Diagnosis (1) History of diverticulitis of colon Is this a current diagnosis for this admission?: Yes - Time Time Spent with patient: Less than 15 minutes - Plan Summary Plan Summary: This is a 74-year-old female status post colostomy takedown with primary, stapled anastomosis. Patient is doing well today, although she complains of pain. She denies nausea or vomiting. She has not passed any flatus. I have recommended the patient get out of bed today and ambulate. Maintain Jacobson for now. Anticipate Jacobson removal tomorrow. Awaiting bowel function. Ambulate, use incentive spirometer (aggressive pulmonary toilet). We will move left lower quadrant packing tomorrow.
[2019-07-17] MEDS: INSULIN LISPRO 100 UNIT/ML 3 ML VIAL SUBCUT SCH ×3 (08:00→22:15)
[2019-07-17 09:34] LABS: HEMATOCRIT 32.6 % (36.0-47.0); HEMOGLOBIN 11.1 g/dL (12.0-15.5); MEAN CORPUSCULAR HEMOGLOBIN 30.1 pg (27.0-33.4); MEAN CORPUSCULAR HGB CONC 34.1 g/dL (32.0-36.0); MEAN CORPUSCULAR VOLUME 88 fl (80-97); PLATELET COUNT 253 10^3/uL (150-450); RED BLOOD COUNT 3.69 10^6/uL (3.72-5.28); RED CELL DISTRIBUTION WIDTH 14.8 % (11.5-14.0); WHITE BLOOD COUNT 17.8 10^3/uL (4.0-10.5)
[2019-07-17 09:39] LABS: ANION GAP 7 (5-19); BLOOD UREA NITROGEN 21 mg/dL (7-20); CALCIUM 8.7 mg/dL (8.4-10.2); CARBON DIOXIDE 28 mmol/L (22-30); CHLORIDE 102 mmol/L (98-107); GLUCOSE 96 mg/dL (75-110); POTASSIUM 3.5 mmol/L (3.6-5.0)
[2019-07-17 09:57] LABS: ABSOLUTE LYMPHOCYTES# (MANUAL) 2.3 10^3/uL (0.5-4.7); ABSOLUTE MONOCYTES # (MANUAL) 1.2 10^3/uL (0.1-1.4); BASOPHILS % (MANUAL) 0 % (0-2); EOSINOPHILS % (MANUAL) 0 % (0-6); LYMPHOCYTES % (MANUAL) 13 % (13-45); MONOCYTES % (MANUAL) 7 % (3-13); SEGMENTED NEUTROPHILS % (MAN) 80 % (42-78); TOTAL CELLS COUNTED 100
[2019-07-17 09:58] LABS: ANISOCYTOSIS SLIGHT; PLATELET COMMENT ADEQUATE; TOXIC GRANULATION 1+
[2019-07-17] MEDS: ENOXAPARIN SODIUM INJ 40 MG/0.4 ML DISP.SYRIN SUBCUT SCH (10:07)
[2019-07-17] MEDS ORDERED: KETOROLAC TROMETHAMINE INJ/PF 30 MG/1 ML SDV ONE (10:37)
[2019-07-17] MEDS: FAMOTIDINE INJ/PF 20 MG/2 ML SDV IV SCH ×2 (10:44→21:51)
[2019-07-17] MEDS: ACETAMINOPHEN 1,000 MG/100 ML RTUPB IV SCH ×2 (10:54→17:02)
[2019-07-17] MEDS: RINGERS SOLUTION,LACTATED 1,000 ML IV PRN ×2 (11:00→20:00)
[2019-07-17] MEDS: KETOROLAC TROMETHAMINE INJ/PF 30 MG/1 ML SDV IV SCH ×3 (11:27→21:51)
--- NOTE | 2019-07-17 19:35 | PDOC PROGRESS REPORT ---
Subjective Progress Note for:: 07/17/19 Reason For Visit: UNWANTED COLOSTOMY. H/O OF PERFORATED Physical Exam Vital Signs: Temp Pulse Resp BP Pulse Ox 98.1 F 100 16 127/63 H 99 07/17/19 15:07 07/17/19 15:07 07/17/19 15:07 07/17/19 15:07 07/17/19 15:07 Intake & Output 07/16/19 07/17/19 07/18/19 06:59 06:59 06:59 Intake Total 6010 2500 940 Output Total 895 1320 1230 Balance 5115 1180 -290 Weight 72.5 kg 72 kg Results Laboratory Results: 07/17/19 09:07 07/17/19 09:07 07/17/19 07/17/19 09:07 09:07 WBC 17.8 H RBC 3.69 L Hgb 11.1 L Hct 32.6 L MCV 88 MCH 30.1 MCHC 34.1 RDW 14.8 H Plt Count 253 Seg Neutrophils % Not Reportable Sodium 136.7 L Potassium 3.5 L Chloride 102 Carbon Dioxide 28 Anion Gap 7 BUN 21 H Creatinine 0.77 Est GFR ( Amer) > 60 Glucose 96 Calcium 8.7 Assessment & Plan - Diagnosis (1) History of diverticulitis of colon Is this a current diagnosis for this admission?: Yes - Time Time Spent with patient: Less than 15 minutes - Plan Summary Plan Summary: 74 y/o F s/p colostomy reversal. She is doing well today. She reports passing flatus one time. She had some nausea yesterday, but has not had any today. Her abdominal pain is improving. She is ambulating today. She only reaches 750 on her IS. Cont with aggressive pulmonary toilet. Ambulate. If flatus continues, will advance diet tomorrow.
[2019-07-17] MEDS: GABAPENTIN 300 MG CAPSULE PO PRN (21:51)
[2019-07-18] MEDS: ACETAMINOPHEN 1,000 MG/100 ML RTUPB IV SCH ×2 (02:53→10:12)
[2019-07-18 04:42] LABS: BLOOD UREA NITROGEN 11 mg/dL (7-20); CALCIUM 7.9 mg/dL (8.4-10.2); GLUCOSE 88 mg/dL (75-110); POTASSIUM 3.4 mmol/L (3.6-5.0)
[2019-07-18 04:47] LABS: CARBON DIOXIDE 30 mmol/L (22-30); CHLORIDE 108 mmol/L (98-107)
[2019-07-18 04:48] LABS: ANION GAP 1 (5-19)
[2019-07-18 05:01] LABS: ABSOLUTE EOSINOPHILS # (AUTO) 0.2 10^3/uL (0.0-0.6); ABSOLUTE LYMPHOCYTES (AUTO) 1.2 10^3/uL (0.5-4.7); ABSOLUTE MONOCYTES (AUTO) 0.7 10^3/uL (0.1-1.4); BASOPHILS % (AUTO) 0.4 % (0-2); EOSINOPHILS % (AUTO) 1.7 % (0-6); HEMATOCRIT 24.3 % (36.0-47.0); LYMPHOCYTES % (AUTO) 11.6 % (13-45); MEAN CORPUSCULAR HEMOGLOBIN 30.7 pg (27.0-33.4); MEAN CORPUSCULAR HGB CONC 34.8 g/dL (32.0-36.0); MEAN CORPUSCULAR VOLUME 88 fl (80-97); MONOCYTES % (AUTO) 6.9 % (3-13); PLATELET COUNT 209 10^3/uL (150-450); RED BLOOD COUNT 2.76 10^6/uL (3.72-5.28); RED CELL DISTRIBUTION WIDTH 14.6 % (11.5-14.0); SEGMENTED NEUTROPHILS % (AUTO) 79.4 % (42-78); TOTAL CELLS COUNTED % (AUTO) 100 %
[2019-07-18 05:09] LABS: HEMOGLOBIN 8.5 g/dL (12.0-15.5)
[2019-07-18] MEDS: KETOROLAC TROMETHAMINE INJ/PF 30 MG/1 ML SDV IV SCH (06:31)
[2019-07-18] MEDS: RINGERS SOLUTION,LACTATED 1,000 ML IV PRN (06:33)
[2019-07-18] MEDS: INSULIN LISPRO 100 UNIT/ML 3 ML VIAL SUBCUT SCH ×4 (08:58→21:27)
[2019-07-18] MEDS: FAMOTIDINE INJ/PF 20 MG/2 ML SDV IV SCH (10:13)
[2019-07-18] MEDS: ENOXAPARIN SODIUM INJ 40 MG/0.4 ML DISP.SYRIN SUBCUT SCH (10:25)
--- NOTE | 2019-07-18 12:27 | PDOC PROGRESS REPORT ---
Subjective Progress Note for:: 07/18/19 Reason For Visit: UNWANTED COLOSTOMY. H/O OF PERFORATED Physical Exam Vital Signs: Temp Pulse Resp BP Pulse Ox 97.5 F 95 16 126/67 H 94 07/18/19 11:36 07/18/19 11:36 07/18/19 11:36 07/18/19 11:36 07/18/19 11:36 Intake & Output 07/17/19 07/18/19 07/19/19 06:59 06:59 06:59 Intake Total 2500 2190 150 Output Total 1320 2345 460 Balance 1180 -155 -310 Weight 72 kg 76.3 kg Results Laboratory Results: 07/18/19 04:42 07/18/19 03:47 07/18/19 07/18/19 07/18/19 03:47 03:47 04:42 WBC Cancelled 10.0 RBC Cancelled 2.76 L Hgb Cancelled 8.5 L D Hct Cancelled 24.3 L MCV Cancelled 88 MCH Cancelled 30.7 MCHC Cancelled 34.8 RDW Cancelled 14.6 H Plt Count Cancelled 209 Seg Neutrophils % Cancelled 79.4 H Sodium 139.4 Potassium 3.4 L Chloride 108 H Carbon Dioxide 30 Anion Gap 1 L BUN 11 Creatinine 0.45 L Est GFR ( Amer) > 60 Glucose 88 Calcium 7.9 L Assessment & Plan - Diagnosis (1) History of diverticulitis of colon Is this a current diagnosis for this admission?: Yes - Time Time Spent with patient: Less than 15 minutes - Plan Summary Plan Summary: This is a 74-year-old female status post colostomy takedown, left hemicolectomy, and colorectal anastomosis. She is doing well. She continues to pass flatus, and is feeling much better than previous. She denies nausea or vomiting. I will disconnect her IV fluids. I will transition her to oral pain medications. I will advance her diet. As long as the patient continues to advance well, she may qualify for discharge home tomorrow. Continue with current medical therapy. Aggressive pulmonary toilet. Ambulate in hallways.
[2019-07-18] MEDS: HYDROCODONE/ACETAMINOPHEN 10-325 MG TABLET PO PRN ×2 (14:54→22:12)
[2019-07-18] MEDS: IBUPROFEN 800 MG TABLET PO SCH (16:32)
[2019-07-18] MEDS ORDERED: (PENDING PHARMACY ID) (Metformin Hcl [Metformin Hcl Er] 500 MG) PO SCH (18:00)
[2019-07-18] MEDS ORDERED: METFORMIN HCL 500 MG TABLET PO SCH (18:00)
[2019-07-18] MEDS: GABAPENTIN 300 MG CAPSULE PO PRN (19:59)
[2019-07-18] MEDS ORDERED: ATORVASTATIN CALCIUM 20 MG TABLET PO SCH (22:00)
[2019-07-19] MEDS: HYDROCODONE/ACETAMINOPHEN 10-325 MG TABLET PO PRN (05:41)
[2019-07-19] MEDS ORDERED: PANTOPRAZOLE SODIUM 20 MG TABLET.DR PO SCH (06:00)
[2019-07-19] MEDS ORDERED: HYDROCHLOROTHIAZIDE 25 MG TABLET PO SCH (08:00)
[2019-07-19] MEDS: INSULIN LISPRO 100 UNIT/ML 3 ML VIAL SUBCUT SCH (08:34)
[2019-07-19] MEDS: IBUPROFEN 800 MG TABLET PO SCH (08:54)
[2019-07-19] MEDS ORDERED: RABEPRAZOLE SODIUM PO SCH (10:00)
--- NOTE | 2019-07-19 14:20 | PDOC DISCHARGE SUMMARY ---
General - Admit/Disc Date/PCP Admission Date/Primary Care Provider: 07/15/19 09:41 GOMEZ HALE PA-C Discharge Date: 07/19/19 - Discharge Diagnosis Final Diagnosis: History of perforated diverticulitis, unwanted colostomy. - Assessment Summary: There is a 74-year-old female with a history of perforated diverticulitis. She underwent [facility] procedure approximately 3 months ago. She has since healed well from this operation. She now desires colostomy reversal. The patient was taken to the operating room on 07/15/2019. Colostomy takedown was performed with colorectal anastomosis. The patient was taken to the floor in stable condition. She improved quickly during her hospitalization. She began ambulating, tolerating a diet, and taking oral pain medications. By 07/19/2019, the patient had reached maximal hospital benefit and was fit for discharge. - Additional Information Resuscitation Status: Full Code Discharge Diet: As Tolerated Discharge Activity: No Lifting Over 10 Pounds, No Lifting/Push/Pulling Referrals: JOAN SEAY MD [ACTIVE STAFF] - Prescriptions: Ibuprofen [Motrin 800 mg Tablet] 800 mg PO MEALS #42 tablet Hydrocodone/Acetaminophen [[place] 10-325 mg Tablet] 1 tab PO Q4HP PRN #28 tablet PRN Reason: For Pain Home Medications: Hydrochlorothiazide 25 mg PO QAM 04/08/13 Atorvastatin Calcium [Lipitor 20 mg Tablet] 20 mg PO QHS 03/21/19 Metformin HCl [Metformin HCl ER] 500 mg PO BID 03/21/19 Rabeprazole Sodium [Aciphex] 10 mg PO DAILY 07/11/19 Hydrocodone/Acetaminophen [[place] 10-325 mg Tablet] 1 tab PO Q4HP PRN #28 tablet 07/19/19 Ibuprofen [Motrin 800 mg Tablet] 800 mg PO MEALS #42 tablet 07/19/19 Additional Information: Discharge home. Diet as tolerated. Activity: No lifting greater than 10 pounds x 6 weeks. Follow-up with me at [facility] in 7 to 10 days. No tub baths or swimming pools x2 weeks. Okay to shower. [place] 10/3 2 5 mg p.o. every 6 hours PRN for pain. Ibuprofen 800 mg p.o. 3 times daily with meals. History of Present Illiness History of Present Illness: MAGDALENE SIMMS is a 74 year old female Physical Exam Vital Signs: Temp Pulse Resp BP Pulse Ox 97.9 F 95 16 143/73 H 94 07/19/19 07:12 07/19/19 07:12 07/19/19 07:12 07/19/19 07:12 07/19/19 07:12 Intake & Output 07/18/19 07/19/19 07/20/19 06:59 06:59 06:59 Intake Total 2190 500 400 Output Total 2345 1320 Balance -155 -820 400 Weight 76.3 kg 77.9 kg Results Laboratory Results: WBC 10.0 10^3/uL (4.0-10.5) 07/18/19 04:42 RBC 2.76 10^6/uL (3.72-5.28) L 07/18/19 04:42 Hgb 8.5 g/dL (12.0-15.5) L D 07/18/19 04:42 Hct 24.3 % (36.0-47.0) L 07/18/19 04:42 MCV 88 fl (80-97) 07/18/19 04:42 MCH 30.7 pg (27.0-33.4) 07/18/19 04:42 MCHC 34.8 g/dL (32.0-36.0) 07/18/19 04:42 RDW 14.6 % (11.5-14.0) H 07/18/19 04:42 Plt Count 209 10^3/uL (150-450) 07/18/19 04:42 Lymph % (Auto) 11.6 % (13-45) L 07/18/19 04:42 [place] % (Auto) 6.9 % (3-13) 07/18/19 04:42 Eos % (Auto) 1.7 % (0-6) 07/18/19 04:42 Baso % (Auto) 0.4 % (0-2) 07/18/19 04:42 Absolute Neuts (auto) 8.0 10^3/uL (1.7-8.2) 07/18/19 04:42 Absolute Lymphs (auto) 1.2 10^3/uL (0.5-4.7) 07/18/19 04:42 Absolute Monos (auto) 0.7 10^3/uL (0.1-1.4) 07/18/19 04:42 Absolute Eos (auto) 0.2 10^3/uL (0.0-0.6) 07/18/19 04:42 Absolute Basos (auto) 0.0 10^3/uL (0.0-0.2) 07/18/19 04:42 Total Counted 100 07/17/19 09:07 Seg Neutrophils % 79.4 % (42-78) H 07/18/19 04:42 Seg Neuts % (Manual) 80 % (42-78) H 07/17/19 09:07 Band Neutrophils % 10 % (3-5) H 07/16/19 04:02 Lymphocytes % (Manual) 13 % (13-45) 07/17/19 09:07 Monocytes % (Manual) 7 % (3-13) 07/17/19 09:07 Eosinophils % (Manual) 0 % (0-6) 07/17/19 09:07 Basophils % (Manual) 0 % (0-2) 07/17/19 09:07 Abs Neuts (Manual) 14.2 10^3/uL (1.7-8.2) H 07/17/19 09:07 Abs Lymphs (Manual) 2.3 10^3/uL (0.5-4.7) 07/17/19 09:07 Abs Monocytes (Manual) 1.2 10^3/uL (0.1-1.4) 07/17/19 09:07 Absolute Eos (Manual) 0.0 10^3/uL (0.0-0.6) 07/17/19 09:07 Abs Basophils (Manual) 0.0 10^3/uL (0.0-0.2) 07/17/19 09:07 Toxic Granulation 1+ 07/17/19 09:07 Platelet Estimate Cancelled 07/18/19 03:47 Platelet Comment ADEQUATE 07/17/19 09:07 Anisocytosis SLIGHT 07/17/19 09:07 Sodium 139.4 mmol/L (137-145) 07/18/19 03:47 Potassium 3.4 mmol/L (3.6-5.0) L 07/18/19 03:47 Chloride 108 mmol/L (98-107) H 07/18/19 03:47 Carbon Dioxide 30 mmol/L (22-30) 07/18/19 03:47 Anion Gap 1 (5-19) L 07/18/19 03:47 BUN 11 mg/dL (7-20) 07/18/19 03:47 Creatinine 0.45 mg/dL (0.52-1.25) L 07/18/19 03:47 Est GFR ( Amer) > 60 (>60) 07/18/19 03:47 Est GFR (MDRD) Non-Af > 60 (>60) 07/18/19 03:47 Glucose 88 mg/dL (75-110) 07/18/19 03:47 POC Glucose 107 mg/dL (70-110) 07/19/19 11:45 Calcium 7.9 mg/dL (8.4-10.2) L 07/18/19 03:47 Slides for Path Review Cancelled 07/18/19 03:47
[2019-07-19 14:37] VITALS: BP 115/64
--- NOTE | 2019-07-23 08:27 | Operative Report ---
Nonrecallable Operative Report DATE OF SURGERY: 07/15/19 PREOPERATIVE DIAGNOSIS: 1. History of complicated, perforated diverticulitis. 2. Unwanted colostomy. POSTOPERATIVE DIAGNOSIS: 1. Same as above. 2. Same as above. 3. Dense intra-abdominal adhesions. 4. Large left lower quadrant defect, requiring mesh reinforcement OPERATION: 1. Left lower quadrant colostomy takedown. 2. Laparotomy with left hemicolectomy. 3. extensive lysis of adhesions. 4. Mobilization of the splenic flexure. 5. End to side EEA stapled colorectal anastomosis. 6. Implantation of mesh ([employer]-A) in the left lower quadrant incision, to close the left lower quadrant defect and bolster the abdominal wall repair. 7. Flexible sigmoidoscopy. SURGEON: JOAN SEAY ANESTHESIA: GA TISSUE REMOVED OR ALTERED: Left hemicolectomy COMPLICATIONS: None apparent ESTIMATED BLOOD LOSS: 250 cc PROCEDURE: Drains/implants: 1. 15 [place] round Lonnie drain in the pelvis. 2. 10 x 15 cm [employer]-A mesh implant in the left lower quadrant incision. Procedure in detail: After informed consent was obtained, the patient was brought to the operating room and laid in the supine position. The left lower quadrant colostomy was closed with a running, locking 0 silk suture. The area of the abdomen was prepped and draped in a normal sterile fashion. An incision was created in the midline, excising the previous abdominal scar. Dissection was carried through the subcutaneous tissues using sharp and blunt dissection. The linea alba fascia was then incised sharply, the abdomen was entered sharply. Upon entry into the abdomen there was noted to be multiple, dense adhesions of the small bowel, as well as the omentum to the anterior abdominal wall. Great care was taken to free all of the intra-abdominal adhesions. Intra-abdominal adhesions consisted of small bowel to small bowel adhesions, omentum to small bowel adhesions, omentum to abdominal wall adhesions, and small bowel to abdominal wall adhesions. With great care, the adhesions were lysed. Entry into the abdomen was then secured. Lysis of adhesions took greater than 2 hours. Next attention was turned to freeing of the left lower quadrant colostomy. An elliptical incision was created around the colostomy. Dissection was carried through the subcutaneous tissues, to the abdominal wall. The colostomy was freed from the abdominal wall using sharp dissection. The colostomy was then passed into the abdominal cavity. The Omni retractor was then placed on the patient for retraction purposes. Attention was then turned to visualization of the rectal stump. The rectal stump was somewhat retracted. Dissection was carried down in order to visualize the stapled edge of the rectal stump. This was successful. Next, attention was turned to freeing of the colon, in order to provide enough length to the colon to the remaining rectum. Mobilization of the splenic flexure would be required, in order to provide adequate length. The white line of [place] on the left side was taken down using electrocautery. The omentum was freed from the splenic flexure and transverse colon. The transverse colon was then rotated medially. After the large amount of dissection, it was felt necessary to remove the left colon, as its blood supply was somewhat tenuous. Demi clamps and subsequent ties were used to remove the descending colon from its mesentery. Next, the left colon was divided and passed off the field. A 29 EEA anvil was placed into the end of the distal transverse colon. The anvil was sutured in place using 2-0 Vicryl suture in pursestring fashion. It was tightened, and attention was turned to dilation of the anus and rectum. Serial dilators were used Inside the anus and rectum. The 25, 28, then 31 mm rectal dilators were used. They passed easily up the anus and rectum, to the staple line. The anvil and transverse colon were found to easily lie within the pelvis, without evidence of tension. The small bowel was then packed into the right upper quadrant, and creation of the anastomosis was undertaken. The 29 EEA stapler was inserted into the rectum, and passed up to the staple line. The spike was deployed through the staple line. The anvil and stapler were , closed, and fired according to proj mgr recommendation. The stapler was removed, and examined on the back table. Two complete doughnut rings were identified within the stapler. Next, the anastomosis was tested using a flexible sigmoidoscope. A bowel clamp was placed proximal to the anastomosis. The flexible endoscope was placed into the anus, and passed up the rectum to the staple line. Air was insufflated into the rectum, until air passed out of the anus, around the scope. No air was found to leak out of the anastomosis, confirming an air and watertight seal. Once this was confirmed, the flexible sigmoidoscope was removed from the patient's anus, and I scrubbed back into the case. The abdomen was then copiously irrigated and suctioned. Next, closure of the left lower quadrant colostomy defect was undertaken. A 10 x 15 cm piece of [employer] bio a hernia mesh was placed into the left lower quadrant defect. It was sutured to the abdominal wall and mattress fashion using #1 Prolene suture. This was done circumferentially. Next, the abdominal wall in the left lower quadrant was closed using #1 Prolene suture in [id number] fashion. Once this was completed, attention was turned to closure of the vertical, midline de fect. The midline incision was closed using #1, double-stranded loop PDS suture in simple running fashion. The overlying skin was then closed using skin sarmad. A Xeroform wick was placed into the left lower quadrant colostomy skin, prior to closure. Dressings were then placed, and the procedure was concluded. All sponge, instrument, and needle counts were correct x2. Condition: Stable.
== END 2019-07-19 14:52 | disposition home or self-care (01) | DRG 337 ==
LOC: INOR 09:41 → 5 21:00 → 2N 07-16 10:17
PROVIDERS: ADMIT Surgery; ATTEND Surgery
PROC: 0DSN0ZZ Reposition Sigmoid Colon, Open Approach (ICD-10-PCS; 2019-07-15)
PROC: 0DN80ZZ Release Small Intestine, Open Approach (ICD-10-PCS; 2019-07-15)
PROC: 0WUF0JZ Supplement Abdominal Wall with Synthetic Substitute, Open Approach (ICD-10-PCS; 2019-07-15)
PROC: 0DNU0ZZ Release Omentum, Open Approach (ICD-10-PCS; principal; 2019-07-15 12:00)
DX: Z43.3 Encounter for attention to colostomy (principal); I10 Essential (primary) hypertension; E78.00 Pure hypercholesterolemia, unspecified; K66.0 Peritoneal adhesions (postprocedural) (postinfection); Z88.0 Allergy status to penicillin
CPT/HCPCS: 36415; 790; 80048; 82962; 84132; 85025; 88307; 94799; C1781; J0131; J1100; J1650; J1741; J1885; J1956; J2250; J2270; J2405; J2704; J3010; J3490; J7050; J7120; S0028

== ENCOUNTER 2019-07-21 19:39 | Inpatient (IN) | payer MEDICARE, OTHER ==
[2019-07-21] MEDS ORDERED: ONDANSETRON 4 MG TAB.RAPDIS PO ONE (20:06)
--- NOTE | 2019-07-21 20:08 | ER Document Report ---
ED Medical Screen (RME) - General Stated Complaint: POST OP BOWEL RESECTION/VOMITING Time Seen by Provider: 07/21/19 20:05 Primary Care Provider: GOMEZ HALE PA-C [Primary Care Provider] - Follow up as needed Notes: 74-year-old female who is 6 days postop colostomy reversal performed by Dr. Browning presents for nausea/vomiting and fever that started today. Patient's surgical site was not completely uncovered in triage however the skin inferior to it appears erythematous and warmer to touch than the surrounding skin. Abdomen soft otherwise. Patient states she took ibuprofen at approximately at 6 PM. Patient offered pain medication in triage but declined at this time. Patient states that the pain has remained the same the last 6 days. I have greeted and performed a rapid initial assessment of this patient. A comprehensive ED assessment and evaluation of the patient, analysis of test results and completion of the medical decision making process with be conducted by additional ED providers. TRAVEL OUTSIDE OF THE [place] IN LAST 30 DAYS: No - Related Data Allergies/Adverse Reactions: Penicillins Allergy (Intermediate, Verified 07/11/19 07:52) rash Past Medical History - Past Medical History Cardiac Medical History: Reports: Hx Hypertension Denies: Hx Atrial Fibrillation, Hx Congestive Heart Failure, Hx Coronary Artery Disease, Hx Heart Attack, Hx Hypercholesterolemia, Hx Peripheral Vascular Disease, Hx Pulmonary Embolism, Hx Heart Murmur Pulmonary Medical History: Reports: Hx Bronchitis, Hx Pneumonia Denies: Hx Asthma, Hx COPD, Hx Respiratory Failure, Hx Sleep Apnea, Hx Tuberculosis Neurological Medical History: Denies: Hx Cerebrovascular Accident, Hx Seizures Malignancy Medical History: Denies: Hx Lung Cancer GI Medical History: Reports: Hx Gastroesophageal Reflux Disease. Denies: Hx Crohn's Disease, Hx Hepatitis, Hx Hiatal Hernia, Hx Irritable Bowel, Hx Liver Failure, Hx Pancreatitis, Hx Ulcer Musculoskeltal Medical History: Reports Hx Arthritis - BACK, KNEES, Denies Hx Fibromyalgia, Denies Hx Muscular Dystrophy Traumatic Medical History: Denies: Hx Fractures Infectious Medical History: Denies: Hx Hepatitis Past Surgical History: Reports: Hx Cholecystectomy - Lumbar disc surgery, Other. Denies: Hx Colostomy, Hx Hysterectomy, Hx Mastectomy, Hx Open Heart Surgery, Hx Pacemaker - Immunizations Hx Diphtheria, Pertussis, Tetanus Vaccination: Yes Doctor's Discharge - Discharge Referrals: GOMEZ HALE PA-C [Primary Care Provider] - Follow up as needed
[2019-07-21] MEDS ORDERED: NORMAL SALINE 1000 ML 1,000 ML IV ONE ×2 (20:13→21:42)
[2019-07-21] MEDS ORDERED: ONDANSETRON HCL INJ/PF 4 MG/2 ML SDV IV ONE (20:35)
[2019-07-21] MEDS ORDERED: MORPHINE SULFATE 10 MG/ML INJ IV ONE ×2 (20:35→21:11)
--- NOTE | 2019-07-21 20:41 | ER Document Report ---
Entered by FERNANDO DAY SCRIBE 07/21/192015 Acting as scribe for:VIKAS ISLAS IV, MD ED General - General Chief Complaint: Post Surgical Pain Stated Complaint: POST OP BOWEL RESECTION/VOMITING Time Seen by Provider: 07/21/19 20:05 Mode of Arrival: Ambulatory Information source: Patient, Friend Notes: This 74 year old female patient who is x6 days post-op colostomy reversal performed by presents to the ED today with complaints of nausea, vomiting, and fever that began x1 day ago. Patient states that she was doing fine after the surgery until last yesterday when she had pain and erythema near the surgical site and vomiting. Friend at bedside states "it is much redder than it was this morning". Patient states that she took ibuprofen at approximately 1800 tonight. TRAVEL OUTSIDE OF THE [place] IN LAST 30 DAYS: No - Related Data Allergies/Adverse Reactions: Penicillins Allergy (Intermediate, Verified 07/11/19 07:52) rash Home Medications: pt doesn't remember. oxycodone prn. motrin 800 mg Past Medical History - General Information source: Patient, [facility] Records - Social History Smoking Status: Never Smoker Cigarette use (# per day): No Chew tobacco use (# tins/day): No Smoking Education Provided: No Lives with: Spouse/Significant other Family History: Reviewed & Not Pertinent Patient has suicidal ideation: No Patient has homicidal ideation: No - Past Medical History Cardiac Medical History: Reports: Hx Hypertension Pulmonary Medical History: Reports: Hx Bronchitis, Hx Pneumonia GI Medical History: Reports: Hx Gastroesophageal Reflux Disease Musculoskeletal Medical History: Reports Hx Arthritis - BACK, KNEES Past Surgical History: Reports: Hx Cholecystectomy, Hx Neurologic Surgery - Lumbar disc surgery - Immunizations Hx Diphtheria, Pertussis, Tetanus Vaccination: Yes Hx Pneumococcal Vaccination: 06/05/16 Review of Systems - Review of Systems Constitutional: See HPI, Fever EENT: No symptoms reported Cardiovascular: No symptoms reported Respiratory: No symptoms reported Gastrointestinal: See HPI, Abdominal pain - Near surgical site, Nausea, Vomiting Genitourinary: No symptoms reported Female Genitourinary: No symptoms reported Musculoskeletal: No symptoms reported Skin: See HPI, Other - Erythema near surgical site on lower abdomen Hematologic/Lymphatic: No symptoms reported Neurological/Psychological: No symptoms reported -: Yes All other systems reviewed and negative Physical Exam - Vital signs Vitals: Temp Pulse Resp BP Pulse Ox 98.9 F 110 H 20 97/63 L 97 07/21/19 20:04 07/21/19 20:04 07/21/19 20:04 07/21/19 20:04 07/21/19 20:04 - General General appearance: Alert - HEENT Head: Normocephalic, Atraumatic Eyes: Normal Pupils: PERRL - Respiratory Respiratory status: No respiratory distress Chest status: Nontender Breath sounds: Normal Chest palpation: Normal - Cardiovascular Rhythm: Regular Heart sounds: Normal auscultation Murmur: No - Abdominal Inspection: Other - Multiple surgical sarmad appreciated where colostomy site w as closed. Surrounding erythema noted. Abdomen soft. Distension: No distension Bowel sounds: Normal Tenderness: Tender - Tender to palpate bilateral lower quadrants and mons pubis region. Organomegaly: No organomegaly - Back Back: Normal, Nontender - Extremities General upper extremity: Normal inspection General lower extremity: Normal inspection - Neurological Neuro grossly intact: Yes - Psychological Associated symptoms: Normal affect, Normal mood - Skin Skin Temperature: Warm Skin Moisture: Dry Skin Color: Normal Course - Vital Signs Vital signs: Temp Pulse Resp BP Pulse Ox 98.9 F 110 H 22 H 97/63 L 95 07/21/19 20:04 07/21/19 20:04 07/21/19 21:00 07/21/19 20:04 07/21/19 21:00 - Laboratory Result Diagrams: 07/21/19 20:35 07/21/19 20:35 Laboratory results interpreted by me: 07/21/19 07/21/19 20:35 20:35 WBC 25.8 H RBC 3.12 L Hgb 9.2 L Hct 27.2 L RDW 14.7 H Seg Neuts % (Manual) 87 H Band Neutrophils % 2 L Lymphocytes % (Manual) 4 L Abs Neuts (Manual) 23.0 H Abs Monocytes (Manual) 1.8 H Sodium 136.3 L Potassium 3.0 L* Glucose 138 H Calcium 7.9 L Total Protein 5.2 L Albumin 2.7 L Lipase < 10.0 L - Consults DR. SEAY Time consulted: 20:42 - RECOMMENDED BLOOD WORK, ABDOMINAL FILMS, HAVE STAPLE REMOVER AT BEDSIDE Reason for consultation: 07/21/19 20:42 POST OP PAIN, COLOSTOMY REVERSAL 2 DAYS AGO Consulted provider: will come to ER Discharge - Discharge Clinical Impression: Post-operative infection Qualifiers: Encounter type: initial encounter Postoperative infection type: unspecified type Qualified Code(s): T81.40XA - Infection following a procedure, unspecified, initial encounter Condition: Good Disposition: ADMITTED OBSERVATION Admitting Provider: DR. SEAY Unit Admitted: Surgical Floor I personally performed the services described in the documentation, reviewed and edited the documentation which was dictated to the scribe in my presence, and it accurately records my words and actions.
[2019-07-21 20:53] LABS: HEMATOCRIT 27.2 % (36.0-47.0); HEMOGLOBIN 9.2 g/dL (12.0-15.5); MEAN CORPUSCULAR HEMOGLOBIN 29.4 pg (27.0-33.4); MEAN CORPUSCULAR HGB CONC 33.6 g/dL (32.0-36.0); MEAN CORPUSCULAR VOLUME 87 fl (80-97); PLATELET COUNT 369 10^3/uL (150-450); RED BLOOD COUNT 3.12 10^6/uL (3.72-5.28); RED CELL DISTRIBUTION WIDTH 14.7 % (11.5-14.0); WHITE BLOOD COUNT 25.8 10^3/uL (4.0-10.5)
[2019-07-21 21:08] LABS: ALBUMIN 2.7 g/dL (3.5-5.0); ALKALINE PHOSPHATASE 115 U/L (38-126); ANION GAP 9 (5-19); ASPARTATE AMINO TRANSFERASE 24 U/L (14-36); BILIRUBIN,TOTAL 0.9 mg/dL (0.2-1.3); BLOOD UREA NITROGEN 11 mg/dL (7-20); CALCIUM 7.9 mg/dL (8.4-10.2); CARBON DIOXIDE 29 mmol/L (22-30); CHLORIDE 98 mmol/L (98-107); GLUCOSE 138 mg/dL (75-110); TOTAL PROTEIN 5.2 g/dL (6.3-8.2)
[2019-07-21 21:16] LABS: ABSOLUTE MONOCYTES # (MANUAL) 1.8 10^3/uL (0.1-1.4); ANISOCYTOSIS SLIGHT; BAND NEUTROPHILS % (MANUAL) 2 % (3-5); BASOPHILS % (MANUAL) 0 % (0-2); EOSINOPHILS % (MANUAL) 0 % (0-6); HYPOCHROMASIA 1+; LYMPHOCYTES % (MANUAL) 4 % (13-45); MONOCYTES % (MANUAL) 7 % (3-13); PLATELET COMMENT ADEQUATE; SEGMENTED NEUTROPHILS % (MAN) 87 % (42-78); TOTAL CELLS COUNTED 100
[2019-07-21] MEDS ORDERED: 1/2 NORMAL SALINE 1,000 ML IV PRN (21:34)
[2019-07-21] MEDS ORDERED: CALCIUM GLUCONATE 1000 MG/10 ML INJ IV ONE (21:44)
[2019-07-21] MEDS ORDERED: DEXTROSE 40% GEL 15 GM TUBE PO PRN ×2 (21:51)
[2019-07-21] MEDS ORDERED: DEXTROSE 50%-WATER 25 GM/50 ML DISP.SYRIN IV PRN ×2 (21:51)
[2019-07-21] MEDS ORDERED: GLUCAGON,HUMAN RECOMB 1 MG INJ IM PRN (21:51)
[2019-07-21] MEDS: FAMOTIDINE 20 MG TABLET PO SCH (23:15)
[2019-07-21] MEDS: LEVOFLOXACIN 500 MG/D5W RTU 500 MG/100 ML RTUPB IV SCH (23:15)
--- NOTE | 2019-07-21 23:33 | RADIOLOGY REPORT (SQ) ---
EXAM DESCRIPTION: XR ABDOMEN SUPINE AND ERECT WITH CHEST (ABD ACUTE SERIES) COMPLETED DATE/TME: 07/21/2019 20:36 CLINICAL HISTORY: 74 years Female, post op pain Comparison: None. NUMBER OF VIEWS/TECHNIQUE: 3 LIMITATIONS: None. FINDINGS: Intestinal gas pattern is within normal limits. Paucity of bowel gas. Right upper abdominal clips. L3-L4 lumbar hardware fusion. Mildly enlarged cardiac silhouette. Limitation: Leads/hardware/artifact. No suspicious calcification. Grossly intact skeletal structures. Pulmonary vascular congestion. IMPRESSION: No acute findings.
[2019-07-21] MEDS: INSULIN LISPRO 100 UNIT/ML 3 ML VIAL SUBCUT SCH (23:45)
[2019-07-22] MEDS: NORMAL SALINE 1000 ML 1,000 ML IV PRN ×3 (00:34→19:43)
[2019-07-22] MEDS: METRONIDAZOLE 500 MG/NS RTU 500 MG/100 ML RTUPB IV SCH ×4 (00:34→21:04)
[2019-07-22] MEDS: HYDROCODONE/ACETAMINOPHEN 10-325 MG TABLET PO PRN ×2 (01:49→22:07)
[2019-07-22] MEDS: POTASSI CL 20 MEQ/50 ML RIDER 20 MEQ/50 ML RTUPB IV SCH ×2 (01:50→03:22)
[2019-07-22 05:26] LABS: HEMATOCRIT 23.4 % (36.0-47.0); MEAN CORPUSCULAR HEMOGLOBIN 29.7 pg (27.0-33.4); MEAN CORPUSCULAR HGB CONC 33.8 g/dL (32.0-36.0); MEAN CORPUSCULAR VOLUME 88 fl (80-97); PLATELET COUNT 315 10^3/uL (150-450); RED BLOOD COUNT 2.66 10^6/uL (3.72-5.28); RED CELL DISTRIBUTION WIDTH 14.6 % (11.5-14.0); WHITE BLOOD COUNT 22.8 10^3/uL (4.0-10.5)
[2019-07-22 05:29] LABS: HEMOGLOBIN 7.9 g/dL (12.0-15.5)
[2019-07-22 05:38] LABS: ANION GAP 8 (5-19); BLOOD UREA NITROGEN 9 mg/dL (7-20); CALCIUM 7.6 mg/dL (8.4-10.2); CARBON DIOXIDE 29 mmol/L (22-30); CHLORIDE 104 mmol/L (98-107); GLUCOSE 94 mg/dL (75-110); POTASSIUM 3.6 mmol/L (3.6-5.0)
--- NOTE | 2019-07-22 05:46 | PDOC H&P ---
History of Present Illness Admission Date/PCP: GOMEZ HALE PA-C Patient complains of: Fevers, chills, abdominal pain, redness at the surgical incision. History of Present Illness: MAGDALENE SIMMS is a 74 year old female with worsening redness at the abdominal incision over the last 2 to 3 days. She is recently status post colostomy reversal. When the patient left the hospital, she had no erythema. Her white count was normal. She had no fevers. At home over the last 2 days she has had increasing amounts of abdominal pain, fevers, malaise, fatigue. She denies chest pain, shortness of breath, headache, blurry vision, dizziness. She presented to the hospital for evaluation of her abdominal pain and incisional erythema. She continues to pass flatus. Past Medical History Cardiac Medical History: Reports: Hypertension Denies: Atrial Fibrillation, Congestive Heart Failure, Coronary Artery Disease, Myocardial Infarction, Hyperlipidema, Peripheral Vascular Disease, Pulmonary Embolism, Heart Murmur Pulmonary Medical History: Reports: Bronchitis, Pneumonia Denies: Asthma, Chronic Obstructive Pulmonary Disease (COPD), Respiratory Failure, Sleep Apnea, Tuberculosis Neurological Medical History: Denies: Seizures Malignancy Medical History: Denies: Lung Cancer GI Medical History: Reports: Gastroesophageal Reflux Disease Denies: Crohn's Disease, Hepatitis, Hiatal Hernia Musculoskeltal Medical History: Reports: Arthritis - BACK, KNEES Denies: Fibromyalgia Hematology: Denies: Anemia, Sickle Cell Disease Past Surgical History Past Surgical History: Reports: Cholecystectomy, Other - Kaiser's procedure for perforated diverticulitis. Colostomy reversal. Denies: Amputation, Colostomy, Hysterectomy, Mastectomy, Pacemaker Social History Lives with: Spouse/Significant other Smoking Status: Never Smoker Frequency of Alcohol Use: Rare Hx Recreational Drug Use: No Drugs: None Hx Prescription Drug Abuse: No Family History Family History: Reviewed & Not Pertinent Parental Family History Reviewed: Yes Children Family History Reviewed: Yes Sibling(s) Family History Reviewed.: Yes Medication/Allergy Home Medications: Hydrochlorothiazide 25 mg PO QAM 04/08/13 Atorvastatin Calcium [Lipitor 20 mg Tablet] 20 mg PO QHS 03/21/19 Metformin HCl [Metformin HCl ER] 500 mg PO BID 03/21/19 Rabeprazole Sodium [Aciphex] 10 mg PO DAILY 07/11/19 Hydrocodone/Acetaminophen [[place] 10-325 mg Tablet] 1 tab PO Q4HP PRN #28 tablet 07/19/19 Ibuprofen [Motrin 800 mg Tablet] 800 mg PO MEALS #42 tablet 07/19/19 Allergies/Adverse Reactions: Penicillins Allergy (Intermediate, Verified 07/11/19 07:52) rash Review of Systems Constitutional: PRESENT: chills, fatigue, fever(s), weakness. ABSENT: headache(s) Eyes: ABSENT: visual disturbances Ears: ABSENT: hearing changes Nose, Mouth, and Throat: ABSENT: mouth pain, sore throat Cardiovascular: ABSENT: chest pain Respiratory: ABSENT: cough Gastrointestinal: PRESENT: abdominal pain, nausea. ABSENT: heartburn, hematemesis, hematochezia, melena, vomiting Integumentary: ABSENT: pruritus, rash Neurological: ABSENT: abnormal movements, abnormal speech, confusion, convulsi ons, dizziness Psychiatric: ABSENT: anxiety, depression Endocrine: ABSENT: cold intolerance Hematologic/Lymphatic: ABSENT: easy bleeding, easy bruising Physical Exam Vital Signs: Temp Pulse Resp BP Pulse Ox 98.9 F 110 H 20 97/63 L 97 07/21/19 20:04 07/21/19 20:04 07/21/19 20:04 07/21/19 20:04 07/21/19 20:04 Intake & Output 07/20/19 07/21/19 07/22/19 06:59 06:59 06:59 Intake Total 1000 Balance 1000 Weight 71.7 kg General appearance: PRESENT: obese Head exam: PRESENT: atraumatic, normocephalic Eye exam: PRESENT: EOMI, PERRLA. ABSENT: scleral icterus Mouth exam: PRESENT: moist, neck supple Neck exam: ABSENT: meningismus, tenderness, thyromegaly, tracheal deviation Respiratory exam: PRESENT: unlabored. ABSENT: chest wall tenderness, tachypnea, wheezes Cardiovascular exam: PRESENT: RRR Pulses: PRESENT: normal radial pulses Vascular exam: PRESENT: normal capillary refill GI/Abdominal exam: PRESENT: soft, tenderness - At incision., other - Erythema and induration surrounding incision.. ABSENT: distended Rectal exam: PRESENT: deferred Extremities exam: ABSENT: clubbing Musculoskeletal exam: ABSENT: deformity Neurological exam: PRESENT: alert, awake, oriented to person, oriented to place, oriented to time, oriented to situation, CN II-XII grossly intact Psychiatric exam: ABSENT: agitated, anxious, depressed Focused psych exam: ABSENT: delusional Skin exam: PRESENT: erythema - Surrounding lower midline surgical incision. ABSENT: cyanosis Results Laboratory Results: 07/21/19 20:35 07/21/19 20:35 07/21/19 07/21/19 07/21/19 20:35 20:35 20:35 WBC 25.8 H RBC 3.12 L Hgb 9.2 L Hct 27.2 L MCV 87 MCH 29.4 MCHC 33.6 RDW 14.7 H Plt Count 369 Seg Neutrophils % Not Reportable Sodium 136.3 L Potassium 3.0 L* Chloride 98 Carbon Dioxide 29 Anion Gap 9 BUN 11 Creatinine 0.53 Est GFR ( Amer) > 60 Glucose 138 H Lactic Acid 1.1 Calcium 7.9 L Total Bilirubin 0.9 AST 24 Alkaline Phosphatase 115 Total Protein 5.2 L Albumin 2.7 L Lipase < 10.0 L Assessment & Plan - Diagnosis (1) Superficial incisional surgical site infection Is this a current diagnosis for this admission?: Yes - Plan Summary Plan Summary: This is a 74-year-old female status post colon resection. She appears to develop a superficial surgical site infection over the last 48 hours. The patient reports fevers, chills, incisional pain. The wound was opened by the emergency department, to reveal seropurulent fluid within the wound. The fascia appears to be intact. The wound was cleaned, irrigated, and packed with gauze. I will admit the patient to the hospital, start her on intravenous antibiotics, and arrange for home health. Repeat labs tomorrow. Further recommendations will depend on the patient's clinical course.
[2019-07-22 06:47] LABS: ABSOLUTE LYMPHOCYTES# (MANUAL) 2.3 10^3/uL (0.5-4.7); ABSOLUTE MONOCYTES # (MANUAL) 1.6 10^3/uL (0.1-1.4); ANISOCYTOSIS SLIGHT; BAND NEUTROPHILS % (MANUAL) 6 % (3-5); BASOPHILS % (MANUAL) 0 % (0-2); EOSINOPHILS % (MANUAL) 0 % (0-6); HYPOCHROMASIA 1+; LYMPHOCYTES % (MANUAL) 10 % (13-45); MONOCYTES % (MANUAL) 7 % (3-13); PLATELET COMMENT ADEQUATE; SEGMENTED NEUTROPHILS % (MAN) 77 % (42-78); TOTAL CELLS COUNTED 100
[2019-07-22 08:37] LABS: APPEARANCE,URINE SLIGHTLY-CLOUDY; BILIRUBIN,URINE NEGATIVE (NEGATIVE); COLOR,URINE YELLOW; GLUCOSE, URINE NEGATIVE (NEGATIVE); KETONES,URINE NEGATIVE (NEGATIVE); LEUKOCYTE ESTERASE,URINE TRACE (NEGATIVE); NITRITE,URINE NEGATIVE (NEGATIVE); PROTEIN,URINE 30 mg/dL (NEGATIVE); URINE SPECIFIC GRAVITY 1.021
[2019-07-22] MEDS: INSULIN LISPRO 100 UNIT/ML 3 ML VIAL SUBCUT SCH ×4 (08:50→22:42)
[2019-07-22] MEDS: ENOXAPARIN SODIUM INJ 40 MG/0.4 ML DISP.SYRIN SUBCUT SCH (09:05)
[2019-07-22] MEDS: IBUPROFEN 800 MG TABLET PO SCH ×3 (09:05→17:56)
[2019-07-22] MEDS: FAMOTIDINE 20 MG TABLET PO SCH ×2 (09:05→21:04)
[2019-07-22] MEDS: LEVOFLOXACIN 500 MG/D5W RTU 500 MG/100 ML RTUPB IV SCH (22:07)
[2019-07-23] MEDS: HYDROCODONE/ACETAMINOPHEN 10-325 MG TABLET PO PRN ×2 (03:32→08:10)
[2019-07-23] MEDS: METRONIDAZOLE 500 MG/NS RTU 500 MG/100 ML RTUPB IV SCH ×3 (05:03→21:43)
[2019-07-23] MEDS: NORMAL SALINE 1000 ML 1,000 ML IV PRN (05:04)
[2019-07-23] MEDS: INSULIN LISPRO 100 UNIT/ML 3 ML VIAL SUBCUT SCH ×4 (08:00→21:39)
--- NOTE | 2019-07-23 08:00 | PDOC PROGRESS REPORT ---
Subjective Progress Note for:: 07/22/19 Subjective:: 74-year-old female with a postoperative wound infection. She reports that she is feeling better today. Her abdominal pain is lessening. She denies fevers, chills, chest pain, shortness of breath, dizziness, orthostasis, or other complaint. Reason For Visit: SURGICAL SITE INFECTION Physical Exam Vital Signs: Intake & Output 07/22/19 06:59 Intake Total 2418 Output Total 100 Balance 2318 Weight 74.5 kg General appearance: PRESENT: no acute distress, cooperative Head exam: PRESENT: atraumatic, normocephalic Eye exam: PRESENT: EOMI, PERRLA. ABSENT: scleral icterus Mouth exam: PRESENT: moist, neck supple Neck exam: ABSENT: meningismus, tenderness, thyromegaly, tracheal deviation Respiratory exam: PRESENT: unlabored. ABSENT: tachypnea, wheezes Pulses: PRESENT: normal radial pulses Vascular exam: PRESENT: normal capillary refill. ABSENT: pallor GI/Abdominal exam: PRESENT: soft, other - Lower midline wound is open, without significant purulence. Erythema is improving. Induration is also improving. Rectal exam: PRESENT: deferred Extremities exam: ABSENT: clubbing Musculoskeletal exam: ABSENT: deformity Neurological exam: PRESENT: alert, awake, oriented to person, oriented to place, oriented to time, oriented to situation, CN II-XII grossly intact Psychiatric exam: ABSENT: agitated, anxious Skin exam: ABSENT: cyanosis Results Laboratory Results: 07/22/19 03:50 07/22/19 03:50 07/22/19 07:45 Urine Color YELLOW Urine Appearance SLIGHTLY-CLOUDY Urine pH 5.0 Ur Specific [place] 1.021 Urine Protein 30 H Urine Glucose (UA) NEGATIVE Urine Ketones NEGATIVE Urine Blood NEGATIVE Urine Nitrite NEGATIVE Ur Leukocyte Esterase TRACE H Urine WBC (Auto) 3 Urine RBC (Auto) 0 07/21/19 21:05 Abdomen - Post Surgical Site Gram Stain - Final Impressions: Acute Abdomen Series 07/21/19 20:36 IMPRESSION: No acute findings. Assessment & Plan - Diagnosis (1) Superficial incisional surgical site infection Is this a current diagnosis for this admission?: Yes - Plan Summary Plan Summary: This is a 74-year-old female status post colostomy reversal. She read presented to the hospital with an elevated white count, and a superficial surgical site infection. The patient is much improved after opening of the wound with removal of seropurulent fluid. I have examined and repacked the wound today. It looks much better than yesterday. Continue with damp to dry dressing changes twice daily. Continue IV antibiotics. Recheck labs tomorrow. Arrange for home health for dressing changes.
[2019-07-23] MEDS: IBUPROFEN 800 MG TABLET PO SCH ×3 (08:09→17:26)
[2019-07-23 08:40] LABS: ABSOLUTE BASOPHILS # (AUTO) 0.1 10^3/uL (0.0-0.2); ABSOLUTE EOSINOPHILS # (AUTO) 0.2 10^3/uL (0.0-0.6); ABSOLUTE LYMPHOCYTES (AUTO) 1.1 10^3/uL (0.5-4.7); ABSOLUTE MONOCYTES (AUTO) 0.9 10^3/uL (0.1-1.4); ABSOLUTE NEUT (AUTO) 14.5 10^3/uL (1.7-8.2); BASOPHILS % (AUTO) 0.5 % (0-2); EOSINOPHILS % (AUTO) 1.3 % (0-6); HEMATOCRIT 23.8 % (36.0-47.0); LYMPHOCYTES % (AUTO) 6.6 % (13-45); MEAN CORPUSCULAR HEMOGLOBIN 29.5 pg (27.0-33.4); MEAN CORPUSCULAR HGB CONC 33.7 g/dL (32.0-36.0); MEAN CORPUSCULAR VOLUME 88 fl (80-97); MONOCYTES % (AUTO) 5.5 % (3-13); PLATELET COUNT 381 10^3/uL (150-450); RED BLOOD COUNT 2.72 10^6/uL (3.72-5.28); RED CELL DISTRIBUTION WIDTH 15.2 % (11.5-14.0); SEGMENTED NEUTROPHILS % (AUTO) 86.1 % (42-78); TOTAL CELLS COUNTED % (AUTO) 100 %; WHITE BLOOD COUNT 16.9 10^3/uL (4.0-10.5)
[2019-07-23] MEDS: FAMOTIDINE 20 MG TABLET PO SCH ×2 (09:16→21:43)
[2019-07-23] MEDS: ENOXAPARIN SODIUM INJ 40 MG/0.4 ML DISP.SYRIN SUBCUT SCH (09:16)
--- NOTE | 2019-07-23 16:45 | PDOC PROGRESS REPORT ---
Subjective Progress Note for:: 07/23/19 Subjective:: 74-year-old female with a postoperative wound infection. She reports that she is feeling better again today. Her abdominal pain is lessening. She denies fevers, chills, chest pain, shortness of breath, dizziness, orthostasis, or other complaint. Reason For Visit: SURGICAL SITE INFECTION Physical Exam Vital Signs: Temp Pulse Resp BP Pulse Ox 98.6 F 78 16 121/63 96 07/23/19 15:48 07/23/19 15:48 07/23/19 15:48 07/23/19 15:48 07/23/19 15:48 Intake & Output 07/22/19 07/23/19 07/24/19 06:59 06:59 06:59 Intake Total 2418 4929 200 Output Total 100 925 600 Balance 2318 4004 -400 Weight 74.5 kg 78.9 kg Exam: General appearance: PRESENT: no acute distress, cooperative Head exam: PRESENT: atraumatic, normocephalic Eye exam: PRESENT: EOMI, PERRLA. ABSENT: scleral icterus Mouth exam: PRESENT: moist, neck supple Neck exam: ABSENT: meningismus, tenderness, thyromegaly, tracheal deviation Respiratory exam: PRESENT: unlabored. ABSENT: tachypnea, wheezes Pulses: PRESENT: normal radial pulses Vascular exam: PRESENT: normal capillary refill. ABSENT: pallor GI/Abdominal exam: PRESENT: soft, other - Lower midline wound is open, without significant purulence. Erythema is improving. Induration is also improving. Rectal exam: PRESENT: deferred Extremities exam: ABSENT: clubbing Musculoskeletal exam: ABSENT: deformity Neurological exam: PRESENT: alert, awake, oriented to person, oriented to place, oriented to time, oriented to situation, CN II-XII grossly intact Psychiatric exam: ABSENT: agitated, anxious Skin exam: ABSENT: cyanosis Results Laboratory Results: 07/23/19 08:10 07/22/19 03:50 07/23/19 08:10 WBC 16.9 H RBC 2.72 L Hgb 8.0 L Hct 23.8 L MCV 88 MCH 29.5 MCHC 33.7 RDW 15.2 H Plt Count 381 Seg Neutrophils % 86.1 H 07/21/19 21:05 Abdomen - Post Surgical Site Gram Stain - Final Impressions: Acute Abdomen Series 07/21/19 20:36 IMPRESSION: No acute findings. Assessment & Plan - Diagnosis (1) Superficial incisional surgical site infection Is this a current diagnosis for this admission?: Yes - Plan Summary Plan Summary: This is a 74-year-old female status post colostomy reversal. She presented to the hospital with an elevated white count, and a superficial surgical site infection. The patient is much improved after opening the wound with removal of seropurulent fluid. I have examined and repacked the wound today. It comintines to improve. Continue with damp to dry dressing changes twice daily. Continue IV antibiotics. Recheck labs tomorrow. Arrange for home health for dressing changes. D/c IV fluids. Decrease pain meds due to hallucinatory side- effects.
[2019-07-23] MEDS: HYDROCODONE/ACETAMINOPHEN 5-325 MG TABLET PO PRN ×2 (17:26→22:46)
[2019-07-23] MEDS: LEVOFLOXACIN 500 MG/D5W RTU 500 MG/100 ML RTUPB IV SCH (22:46)
[2019-07-24] MEDS: HYDROCODONE/ACETAMINOPHEN 5-325 MG TABLET PO PRN ×5 (03:11→21:46)
[2019-07-24] MEDS: METRONIDAZOLE 500 MG/NS RTU 500 MG/100 ML RTUPB IV SCH (06:05)
[2019-07-24 06:09] LABS: ABSOLUTE EOSINOPHILS # (AUTO) 0.3 10^3/uL (0.0-0.6); ABSOLUTE LYMPHOCYTES (AUTO) 0.8 10^3/uL (0.5-4.7); ABSOLUTE MONOCYTES (AUTO) 0.9 10^3/uL (0.1-1.4); ABSOLUTE NEUT (AUTO) 12.8 10^3/uL (1.7-8.2); BASOPHILS % (AUTO) 0.2 % (0-2); EOSINOPHILS % (AUTO) 1.9 % (0-6); HEMATOCRIT 22.4 % (36.0-47.0); LYMPHOCYTES % (AUTO) 5.5 % (13-45); MEAN CORPUSCULAR HGB CONC 34.4 g/dL (32.0-36.0); MEAN CORPUSCULAR VOLUME 87 fl (80-97); MONOCYTES % (AUTO) 6.3 % (3-13); PLATELET COUNT 423 10^3/uL (150-450); RED BLOOD COUNT 2.57 10^6/uL (3.72-5.28); RED CELL DISTRIBUTION WIDTH 15.2 % (11.5-14.0); SEGMENTED NEUTROPHILS % (AUTO) 86.1 % (42-78); TOTAL CELLS COUNTED % (AUTO) 100 %; WHITE BLOOD COUNT 14.9 10^3/uL (4.0-10.5)
[2019-07-24 06:26] LABS: HEMOGLOBIN 7.7 g/dL (12.0-15.5)
[2019-07-24] MEDS: INSULIN LISPRO 100 UNIT/ML 3 ML VIAL SUBCUT SCH ×4 (08:08→21:41)
[2019-07-24] MEDS: IBUPROFEN 800 MG TABLET PO SCH ×3 (08:14→16:30)
[2019-07-24] MEDS ORDERED: SULFAMETHOXAZOLE/TRIMETHOPRIM 800-160 MG TABLET PO ONE (09:00)
[2019-07-24] MEDS: ENOXAPARIN SODIUM INJ 40 MG/0.4 ML DISP.SYRIN SUBCUT SCH (09:31)
[2019-07-24] MEDS: FAMOTIDINE 20 MG TABLET PO SCH ×2 (09:31→21:46)
--- NOTE | 2019-07-24 09:38 | PDOC PROGRESS REPORT ---
Subjective Reason For Visit: SURGICAL SITE INFECTION Physical Exam Vital Signs: Temp Pulse Resp BP Pulse Ox 98.2 F 84 18 139/72 H 95 07/24/19 07:23 07/24/19 07:23 07/24/19 07:23 07/24/19 07:23 07/24/19 07:23 Intake & Output 07/23/19 07/24/19 07/25/19 06:59 06:59 06:59 Intake Total 4929 400 100 Output Total 925 1200 Balance 4004 -800 100 Weight 78.9 kg 77.1 kg Results Laboratory Results: 07/24/19 04:59 07/22/19 03:50 07/24/19 04:59 WBC 14.9 H RBC 2.57 L Hgb 7.7 L Hct 22.4 L MCV 87 MCH 30.0 MCHC 34.4 RDW 15.2 H Plt Count 423 Seg Neutrophils % 86.1 H 07/21/19 21:05 Abdomen - Post Surgical Site Gram Stain - Final 07/21/19 21:05 Abdomen - Post Surgical Site Wound Culture - Final Mrsa (Meth Resis Staph Aureus) No Anaerobic Organisms Impressions: Acute Abdomen Series 07/21/19 20:36 IMPRESSION: No acute findings. Assessment & Plan - Diagnosis (1) Superficial incisional surgical site infection Is this a current diagnosis for this admission?: Yes - Plan Summary Plan Summary: This is a 74-year-old female status post colostomy reversal. She presented to the hospital with an elevated white count, and a superficial surgical site infection. The patient is much improved after opening the wound with removal of seropurulent fluid. I have examined and repacked the wound today. It continues to improve. Continue with damp to dry dressing changes twice daily. Recheck labs tomorrow. Arrange for home health for dressing changes. Cultures have returned as MRSA. Will change the patient to Bactrim DS, 2 tabs p.o. twice daily. I have again encouraged the patient to ambulate, and use her incentive spirometer.
[2019-07-24] MEDS: SULFAMETHOXAZOLE/TRIMETHOPRIM 800-160 MG TABLET PO SCH (21:46)
[2019-07-25] MEDS: HYDROCODONE/ACETAMINOPHEN 5-325 MG TABLET PO PRN ×5 (01:48→21:14)
[2019-07-25 06:30] LABS: ABSOLUTE BASOPHILS # (AUTO) 0.1 10^3/uL (0.0-0.2); ABSOLUTE EOSINOPHILS # (AUTO) 0.2 10^3/uL (0.0-0.6); ABSOLUTE LYMPHOCYTES (AUTO) 1.1 10^3/uL (0.5-4.7); ABSOLUTE MONOCYTES (AUTO) 1.1 10^3/uL (0.1-1.4); BASOPHILS % (AUTO) 0.4 % (0-2); EOSINOPHILS % (AUTO) 1.4 % (0-6); HEMATOCRIT 24.9 % (36.0-47.0); HEMOGLOBIN 8.4 g/dL (12.0-15.5); LYMPHOCYTES % (AUTO) 7.8 % (13-45); MEAN CORPUSCULAR HEMOGLOBIN 29.2 pg (27.0-33.4); MEAN CORPUSCULAR HGB CONC 33.7 g/dL (32.0-36.0); MEAN CORPUSCULAR VOLUME 87 fl (80-97); MONOCYTES % (AUTO) 7.4 % (3-13); PLATELET COUNT 548 10^3/uL (150-450); RED BLOOD COUNT 2.87 10^6/uL (3.72-5.28); RED CELL DISTRIBUTION WIDTH 15.4 % (11.5-14.0); TOTAL CELLS COUNTED % (AUTO) 100 %; WHITE BLOOD COUNT 14.4 10^3/uL (4.0-10.5)
[2019-07-25] MEDS: INSULIN LISPRO 100 UNIT/ML 3 ML VIAL SUBCUT SCH ×4 (07:37→21:35)
[2019-07-25] MEDS: IBUPROFEN 800 MG TABLET PO SCH ×3 (08:19→17:09)
[2019-07-25] MEDS: FAMOTIDINE 20 MG TABLET PO SCH ×2 (09:58→21:14)
[2019-07-25] MEDS: ENOXAPARIN SODIUM INJ 40 MG/0.4 ML DISP.SYRIN SUBCUT SCH (09:58)
[2019-07-25] MEDS: SULFAMETHOXAZOLE/TRIMETHOPRIM 800-160 MG TABLET PO SCH ×2 (09:58→21:14)
[2019-07-26] MEDS: HYDROCODONE/ACETAMINOPHEN 5-325 MG TABLET PO PRN ×2 (03:54→11:26)
[2019-07-26] MEDS: INSULIN LISPRO 100 UNIT/ML 3 ML VIAL SUBCUT SCH ×3 (07:58→15:54)
[2019-07-26] MEDS: IBUPROFEN 800 MG TABLET PO SCH ×3 (08:07→17:12)
--- NOTE | 2019-07-26 10:27 | PDOC PROGRESS REPORT ---
Subjective Progress Note for:: 07/25/19 Reason For Visit: SURGICAL SITE INFECTION Physical Exam Vital Signs: Intake & Output 07/25/19 06:59 Intake Total 725 Output Total 1000 Balance -275 Weight 76.2 kg Results Laboratory Results: 07/25/19 05:41 07/22/19 03:50 Impressions: Acute Abdomen Series 07/21/19 20:36 IMPRESSION: No acute findings. Assessment & Plan - Diagnosis (1) Superficial incisional surgical site infection Is this a current diagnosis for this admission?: Yes - Plan Summary Plan Summary: This is a 74-year-old female status post colostomy reversal. She presented to the hospital with an elevated white count, and a superficial surgical site infection. She continues to complain of pain. The erythema is much improved after opening the wound with removal of seropurulent fluid. I have examined and repacked the wound today. It continues to improve. Continue with damp to dry dressing changes twice daily. Arrange for home health for dressing changes. Cultures have returned as MRSA. Continue Bactrim DS, 2 tabs p.o. twice daily. I have again encouraged the patient to ambulate, and use her incentive spirometer. The patient will require training from the nursing staff to ensure competence with dressing changes.
[2019-07-26] MEDS: FAMOTIDINE 20 MG TABLET PO SCH (11:20)
[2019-07-26] MEDS: SULFAMETHOXAZOLE/TRIMETHOPRIM 800-160 MG TABLET PO SCH (11:20)
[2019-07-26] MEDS: ENOXAPARIN SODIUM INJ 40 MG/0.4 ML DISP.SYRIN SUBCUT SCH (11:27)
[2019-07-26 18:12] VITALS: BP 121/63
== END 2019-07-26 19:06 | disposition home or self-care (01) | DRG 863 ==
LOC: ER 19:39 → EH 21:50 → 3W 07-22 00:09 → OBSVTOIN 07-22 13:47
PROVIDERS: ADMIT Surgery; ATTEND Surgery
PROC: 3E10X8Z Irrigation of Skin and Mucous Membranes using Irrigating Substance (ICD-10-PCS; principal; 2019-07-22)
DX: T81.41XA Infection following a procedure, superficial incisional surgical site, initial encounter (principal); B95.62 Methicillin resistant Staphylococcus aureus infection as the cause of diseases classified elsewhere; Y83.8 Other surgical procedures as the cause of abnormal reaction of the patient, or of later complication, without mention of misadventure at the time of the procedure; K21.9 Gastro-esophageal reflux disease without esophagitis; I10 Essential (primary) hypertension; Z90.49 Acquired absence of other specified parts of digestive tract; Z88.0 Allergy status to penicillin
CPT/HCPCS: 36415; 74022; 80048; 80053; 81001; 82962; 83605; 83690; 85025; 87040; 87070; 87075; 87077; 87186; 87205; 96361; 96365; 96375; 99284; G0378; J0610; J1650; J1956; J2270; J2405; J3480; J3490; J7030

== ENCOUNTER 2020-03-27 09:34 | Day surgery (SDC) | payer MEDICARE, OTHER ==
[2020-03-27] MEDS ORDERED: MIDAZOLAM 2 MG/2 ML INJ ONE (11:49)
[2020-03-27] MEDS ORDERED: FENTANYL CITRATE INJ/PF 100 MCG/2 ML AMPUL ONE (11:49)
[2020-03-27] MEDS ORDERED: PROPOFOL INJ 200 MG/20 ML VIAL IV ONE (11:49)
[2020-03-27] MEDS ORDERED: ONDANSETRON HCL INJ/PF 4 MG/2 ML SDV ONE (12:01)
[2020-03-27] MEDS ORDERED: BUPIVACAINE HCL 0.25 % INJ/PF (2.5 MG/1 ML) 30 ML VIAL ONE (12:01)
[2020-03-27] MEDS ORDERED: LIDOCAINE 1% INJ-PF (10 MG/ML) 30 ML SDV ONE (12:01)
--- NOTE | 2020-03-27 12:47 | Discharge Summary ---
Discharge Summary (SDC) - Discharge Final Diagnosis: Suture granuloma of the abdominal wall Date of Surgery: 03/27/20 Discharge Date: 03/27/20 Condition: Stable Treatment or Instructions: Discharge home. Diet as tolerated. Activity: As tolerated. Okay to shower. Pack the wound twice daily, with damp to dry dressing changes. [place] 5/325 mg p.o. every 6 hours as needed for pain. Follow-up with [place] [facility] in 10-14 days. Referrals: GOMEZ HALE PA-C [Primary Care Provider] - Discharge Diet: As Tolerated Respiratory Treatments at Home: Deep Breathing/Coughing, Incentive Spirometer Discharge Activity: Activity As Tolerated, Balance Activity w/Rest Home Care Assistance: None Needed Report the Following to Your Physician Immediately: Shortness of Breath, Nausea, Vomiting, Increase in Pain, Fever over 101 Degrees, Unusual Bleeding, Redness, Swelling, Warmth
--- NOTE | 2020-03-27 12:51 | Operative Report ---
Nonrecallable Operative Report DATE OF SURGERY: 03/27/20 PREOPERATIVE DIAGNOSIS: Suture granuloma of the abdominal wall POSTOPERATIVE DIAGNOSIS: Same as above OPERATION: Excision of suture granuloma of the abdominal wall SURGEON: JOAN SEAY ANESTHESIA: GA TISSUE REMOVED OR ALTERED: Suture granuloma of the abdominal wall COMPLICATIONS: None apparent ESTIMATED BLOOD LOSS: Minimal PROCEDURE: Drains/implants: 4 x 4 soaked in Betadine (x2). Procedure in detail: After informed consent was obtained, the patient was brought to the operating room and laid in the supine position. The area of the abdomen was prepped and draped in a normal sterile fashion. The small sinus was easily identified on the abdominal wall. A probe was used to track the sinus, all the way to the abdominal wall. Using a 15 blade scalpel and electrocautery, the fistula tract was excised all the way down to the fascia. At the base of the fistula tract, a large amount of hypertrophic granulation tissue was present. This was excised in its entirety. 2 knots of Prolene suture were found at the base of the suture granuloma. These were excised. After all suture material and hypertrophic tissue had been removed, the wound was irrigated. It was then packed with Betadine soaked 4 x 4's. Dressings were then placed over top, and the procedure was concluded. All sponge, instrument, and needle counts were correct x2. Condition: Stable.
[2020-03-27] MEDS ORDERED: TRAMADOL HCL 50 MG TABLET ONE (13:35)
[2020-03-27] MEDS ORDERED: TRAMADOL HCL 50 MG TABLET PO ONE (14:00)
[2020-03-27 15:01] VITALS: BP 103/65
== END 2020-03-27 14:40 | disposition home or self-care (01) ==
LOC: OROUT 09:34
PROVIDERS: ATTEND Surgery
DX: T81.89XA Other complications of procedures, not elsewhere classified, initial encounter (principal); Y83.8 Other surgical procedures as the cause of abnormal reaction of the patient, or of later complication, without mention of misadventure at the time of the procedure; Z86.010 Personal history of colon polyps; Z03.818 Encounter for observation for suspected exposure to other biological agents ruled out; Z87.19 Personal history of other diseases of the digestive system; R73.03 Prediabetes; I10 Essential (primary) hypertension; E66.3 Overweight; Z79.899 Other long term (current) drug therapy; Z79.84 Long term (current) use of oral hypoglycemic drugs; M19.90 Unspecified osteoarthritis, unspecified site; E78.00 Pure hypercholesterolemia, unspecified; Z90.49 Acquired absence of other specified parts of digestive tract; Z98.890 Other specified postprocedural states; Z85.828 Personal history of other malignant neoplasm of skin
CPT/HCPCS: 22900; 36415; 82962; 84132; 00800; U0003; J2250; J3010; J3490; J2405; J2704; A9270; C9803; 800; 87635